=== PATIENT | male | born 1945 | race Two or more races ===

== ENCOUNTER → 2021-12-11 | Emergency (ER) | payer OTHER ==
[~2021-12-11] MED LIST: KETOROLAC TROMETH 30 MG/ML 1ML VIAL IV ONE; SODIUM CHLORIDE 0.9% 500 ML IVB ONE
[2021-12-11 10:45] LABS: Basophils # (auto) 0 10 ^3/uL (0-0.2); Basophils % (auto) 0.4 % (0.0-2.0); Eosinophils # (auto) 0 10 ^3/uL (0-0.8); Eosinophils % (auto) 0.6 % (0.0-7.0); Hematocrit 37.9 % (41.0-53.0); Hemoglobin 12.5 g/dL (13.5-17.5); Lymphocytes # (auto) 1.1 10 ^3/uL (0.4-5.4); Lymphocytes % (auto) 14.8 % (10.0-50.0); Mean Corpuscular Hemoglobin 29.7 pg (28.0-32.0); Mean Corpuscular Hgb Conc. 32.9 g/dL (32.0-36.0); Monocytes # (auto) 0.4 10 ^3/uL (0-1.3); Monocytes % (auto) 5.5 % (0.0-12.0); Neutrophils % (auto) 78.7 % (37.0-80.0); Red Blood Cells 4.21 10^6/uL (4.5-5.90); Red Cell Distribution Width 14.9 % (11.8-14.3); White Blood Cell 7.6 10^3/uL (4.4-10.8)
[2021-12-11 10:58] LABS: Albumin 3.6 g/dL (3.4-5.0); Calcium 8.3 mg/dL (8.5-10.1); Potassium 4.2 mmol/L (3.5-5.1)
[2021-12-11 11:02] LABS: BUN/Creatinine Ratio 14.4; Bilirubin, Total 0.6 mg/dL (0.2-1.0)
[2021-12-11 12:26] VITALS: BP 169/77
== END | disposition home or self-care (01) ==
LOC: EDBD 09:59 → ER 09:59
DX: R10.9 Unspecified abdominal pain (principal); I10 Essential (primary) hypertension; E11.9 Type 2 diabetes mellitus without complications; Z20.822 Contact with and (suspected) exposure to COVID-19
CPT/HCPCS: 36415; 74176; 80053; 82150; 83690; 85025; 87426; 93005; 96361; 96374; 99285; J1885; J7040

== ENCOUNTER 2023-02-18 16:21 | Observation (INO) | payer OTHER ==
[~2023-02-18] VITALS: Ht 182.9 cm; Wt 233.0 kg
[2023-02-18] MEDS ORDERED: PIPERACILLIN-TAZOB 3.375GM 100 ML IV ONE (17:00)
[2023-02-18] MEDS ORDERED: SODIUM CHLORIDE 0.9% 1,000 ML IV ONE ×2 (17:00→19:00)
[2023-02-18 17:28] LABS: Basophils # (auto) 0 10 ^3/uL (0-0.2); Basophils % (auto) 0.3 % (0.0-2.0); Eosinophils # (auto) 0 10 ^3/uL (0-0.8); Hematocrit 40.7 % (41.0-53.0); Hemoglobin 13.9 g/dL (13.5-17.5); Lymphocytes # (auto) 0.6 10 ^3/uL (0.4-5.4); Lymphocytes % (auto) 6.6 % (10.0-50.0); Mean Corpuscular Hemoglobin 28.8 pg (28.0-32.0); Mean Corpuscular Hgb Conc. 34.1 g/dL (32.0-36.0); Mean Corpuscular Volume 84.5 fL (80.0-100.0); Monocytes # (auto) 0.5 10 ^3/uL (0-1.3); Monocytes % (auto) 5.9 % (0.0-12.0); Neutrophils # (auto) 7.4 10 ^3/uL (1.6-8.6); Neutrophils % (auto) 87.2 % (37.0-80.0); Nucleated Red Blood Cells % 0.1 %; Red Blood Cells 4.81 10^6/uL (4.5-5.90); Red Cell Distribution Width 14.1 % (11.8-14.3); White Blood Cell 8.5 10^3/uL (4.4-10.8)
[2023-02-18 17:43] VITALS: PULSE 90; RESP 22; O2SAT 97
[2023-02-18 17:46] LABS: Alanine Aminotransferase 39 U/L (7-40); Albumin 4.5 g/dL (3.2-4.8); Alkaline Phosphatase 52 U/L (46-116); Anion Gap 7.7 (5-15); Aspartate Aminotransferase 39 U/L (13-40); BUN/Creatinine Ratio 14.2 (10.0-20.0); Blood Alcohol < 3.0 mg/dL (<10); Blood Urea Nitrogen 19 mg/dL (9-23); Calcium 8.7 mg/dL (8.5-10.1); Carbon Dioxide 24.3 mmol/L (20-30); Chloride 100 mmol/L (98-107); Glucose 205 mg/dL (74-106); Potassium 4.4 mmol/L (3.5-5.1); Sodium 132 mmol/L (136-145)
[2023-02-18 17:47] LABS: Bilirubin, Total 1.9 mg/dL (0.2-1.0); Total Protein 7.3 g/dL (5.7-8.2)
[2023-02-18 17:50] LABS: Salicylate < 3.0 mg/dL (2.8-20.0)
[2023-02-18 17:56] LABS: Magnesium 0.8 mg/dL (1.6-2.6)
[2023-02-18] MEDS ORDERED: ACETAMINOPHEN 325 MG TAB PO ONE (18:15)
[2023-02-18] MEDS ORDERED: MAGNESIUM SULFATE 1GM/100ML 100 ML IV ONE ×2 (18:15)
[2023-02-18] MEDS ORDERED: ACETAMINOPHEN 325 MG TAB PO PRN (18:45)
[2023-02-18] MEDS ORDERED: HYDROcodone-ACET 5/325MG TAB PO PRN (18:45)
[2023-02-18 19:18] LABS: COVID19 ANTIGEN SOFIA FIA NEGATIVE (NEGATIVE)
[2023-02-18 19:19] LABS: Rapid Influenza A Negative (Negative); Rapid Influenza B Negative (Negative)
[2023-02-18 19:33] VITALS: PULSE 72; RESP 28; O2SAT 96
[2023-02-18 19:45] LABS: Urine Bacteria NONE SEEN /hpf (None Seen); Urine Blood TRACE /uL (Negative); Urine Clarity Clear (Clear); Urine Color Yellow (Yellow); Urine Mucus FEW (None Seen); Urine Protein, UAD 1+ (Negative); Urine Specific Gravity 1.025 (1.001-1.035); Urine Urobilinogen Normal (Negative); Urine WBC 1 /hpf (0 - 3); Urine pH 5.5 (5.0-8.0)
[2023-02-18 19:54] LABS: Amphetamine Screen, Urine Neg (NEGATIVE); Barbiturate Scree,Urine Neg (NEGATIVE); Benzodiazephine Screen, Urine Neg (NEGATIVE); Cannabinoid Screen, Urine Neg (NEGATIVE); Cocaine Screen, Urine Neg (NEGATIVE); Opiate Scree,Urine Pos (NEGATIVE); Phencyclidine Screen, Urine Neg (NEGATIVE)
[2023-02-18] MEDS: MAGNESIUM SULFATE 1GM/100ML 100 ML IV SCH ×2 (21:07→22:25)
[2023-02-19] MEDS ORDERED: PANTOPRAZOLE 40 MG/10 ML VIAL INJ IV ONE (04:00)
[2023-02-19] MEDS ORDERED: ONDANSETRON HCL 4 MG/2 ML VIAL ONE (04:45)
[2023-02-19] MEDS ORDERED: ONDANSETRON HCL 4 MG/2 ML VIAL IV ONE (04:45)
[2023-02-19 06:03] LABS: Anion Gap 8.3 (5-15); Carbon Dioxide 22.7 mmol/L (20-30); Chloride 102 mmol/L (98-107); Potassium 3.6 mmol/L (3.5-5.1); Sodium 133 mmol/L (136-145)
[2023-02-19 06:04] LABS: Calcium 8.7 mg/dL (8.7-10.4)
[2023-02-19 06:09] LABS: BUN/Creatinine Ratio 12.6 (10.0-20.0); Blood Urea Nitrogen 12 mg/dL (9-23); Glucose 198 mg/dL (74-106)
[2023-02-19 06:10] LABS: Magnesium 1.5 mg/dL (1.6-2.6)
[2023-02-19 07:25] VITALS: RESP 18; O2SAT 96
[2023-02-19] MEDS ORDERED: METF-372 PO (08:57)
[2023-02-19] MEDS ORDERED: ASPI-543 PO (09:04)
[2023-02-19] MEDS ORDERED: HYDR-4072 PO (09:04)
[2023-02-19] MEDS ORDERED: LISI20TA56 PO (09:04)
[2023-02-19] MEDS ORDERED: ATOR-47 PO (09:04)
[2023-02-19] MEDS ORDERED: HYDR25TA87 PO (09:04)
[2023-02-19] MEDS ORDERED: MET50T PO (09:04)
[2023-02-19] MEDS ORDERED: POTA-228 PO (09:04)
[2023-02-19] MEDS ORDERED: ISO60SRT PO (09:04)
[2023-02-19 09:26] VITALS: BP 146/97; PULSE 87; RESP 20; TEMP 99.1; O2SAT 96
[2023-02-19 09:44] VITALS: BP 146/97; PULSE 87; RESP 20; TEMP 99.1; O2SAT 96
[2023-02-19] MEDS: MAGNESIUM SULFATE 1GM/100ML 100 ML IV SCH ×3 (09:53→12:15)
[2023-02-19 12:00] VITALS: BP 144/75; PULSE 84; RESP 20; TEMP 98.4; O2SAT 97
[2023-02-19 16:00] VITALS: BP 139/78; PULSE 76; RESP 18; TEMP 97.9; O2SAT 97
== END 2023-02-19 18:00 | disposition home or self-care (01) ==
LOC: ER 16:21 → EDBD 16:21 → OVERFLOW 18:51 → WEST WING 02-19 07:54
PROVIDERS: ADMIT Internal Medicine; ATTEND Internal Medicine
DX: G92.8 Other toxic encephalopathy (principal); Z20.822 Contact with and (suspected) exposure to COVID-19; R11.2 Nausea with vomiting, unspecified; E83.42 Hypomagnesemia; E11.9 Type 2 diabetes mellitus without complications; I10 Essential (primary) hypertension; E78.5 Hyperlipidemia, unspecified; G89.4 Chronic pain syndrome; I25.2 Old myocardial infarction; Z87.442 Personal history of urinary calculi; Z79.899 Other long term (current) drug therapy; Z91.199 Patient's noncompliance with other medical treatment and regimen due to unspecified reason
CPT/HCPCS: 36415; 70450; 71045; 74176; 80048; 80053; 80307; 80320; 80329; 81001; 82140; 83605; 83735; 83880; 84443; 84484; 85025; 87040; 87426; 87804; 93005; 93970; 96365; 96366; 96368; 96375; 97163; 99291; C9113; G0378; J2405; J2543; J3475; J7030

== ENCOUNTER 2023-02-21 15:15 | Inpatient (IN) | payer OTHER ==
[~2023-02-21] VITALS: Ht 182.9 cm; Wt 112.0 kg
[~2023-02-21 15:15] MED LIST changes: +ASPI-543 PO; +ATOR-47 PO; +HYDR-4072 PO; +HYDR25TA87 PO; +ISO60SRT PO; -KETOROLAC TROMETH 30 MG/ML 1ML VIAL IV ONE; +LISI20TA56 PO; +MET50T PO; +METF-372 PO; +POTA-228 PO; -SODIUM CHLORIDE 0.9% 500 ML IVB ONE
[2023-02-21 16:02] LABS: Basophils # (auto) 0 10 ^3/uL (0-0.2); Basophils % (auto) 0.1 % (0.0-2.0); Eosinophils # (auto) 0 10 ^3/uL (0-0.8); Hematocrit 39.3 % (41.0-53.0); Hemoglobin 13.2 g/dL (13.5-17.5); Lymphocytes % (auto) 6.3 % (10.0-50.0); Mean Corpuscular Hemoglobin 28.1 pg (28.0-32.0); Mean Corpuscular Hgb Conc. 33.6 g/dL (32.0-36.0); Mean Corpuscular Volume 83.6 fL (80.0-100.0); Monocytes # (auto) 1.2 10 ^3/uL (0-1.3); Monocytes % (auto) 7.8 % (0.0-12.0); Neutrophils # (auto) 13.2 10 ^3/uL (1.6-8.6); Neutrophils % (auto) 85.8 % (37.0-80.0); Red Cell Distribution Width 14.1 % (11.8-14.3); White Blood Cell 15.4 10^3/uL (4.4-10.8)
[2023-02-21 16:05] LABS: Alanine Aminotransferase 37 U/L (7-40); Alkaline Phosphatase 62 U/L (46-116); Calcium 8.7 mg/dL (8.7-10.4); Carbon Dioxide 22 mmol/L (20-30); Chloride 98 mmol/L (98-107); Glucose 265 mg/dL (74-106)
[2023-02-21 16:06] LABS: Albumin 4.2 g/dL (3.2-4.8); Anion Gap 10 (5-15); Aspartate Aminotransferase 27 U/L (13-40); BUN/Creatinine Ratio 15.1 (10.0-20.0); Bilirubin, Total 2.5 mg/dL (0.2-1.0); Blood Urea Nitrogen 22 mg/dL (9-23); Magnesium 1.6 mg/dL (1.6-2.6); Potassium 4.5 mmol/L (3.5-5.1); Sodium 130 mmol/L (136-145); Total Protein 6.7 g/dL (5.7-8.2)
[2023-02-21 16:19] LABS: INR 1.27 (0.9-1.15); Partial Thromboplastin Time 32.4 SEC (24.5-34.5); Prothrombin Time 13.1 sec (9.3-11.8)
[2023-02-21] MEDS ORDERED: SODIUM CHLORIDE 0.9% 1,000 ML IV ONE ×2 (21:15→23:45)
[2023-02-21] MEDS ORDERED: PIPERACILLIN-TAZOB 3.375GM 100 ML IV ONE (21:15)
[2023-02-21] MEDS ORDERED: HYDROmorphone HCL 2 MG/ML VL/or syr IM ONE (21:15)
[2023-02-21] MEDS ORDERED: ONDANSETRON ODT 4 MG TAB PO ONE (21:15)
[2023-02-21] MEDS ORDERED: VANCOMYCIN PER PHARMACY 0 MG IV SCH (21:30)
[2023-02-21 22:04] VITALS: PULSE 169; RESP 31; O2SAT 94
[2023-02-21] MEDS ORDERED: VANCOMYCIN 1GM/250ML 250 ML IV SCH (22:05)
[2023-02-21 22:06] LABS: Lactic Acid w/Reflex 2.2 mmol/L (0.4-2.0)
[2023-02-21] MEDS ORDERED: ADENOSINE 6 MG/2 ML INJ IV ONE ×3 (22:30)
[2023-02-21] MEDS ORDERED: dilTIAZem 25 MG/5 ML VIAL IV ONE (22:45)
[2023-02-21] MEDS ORDERED: dilTIAZem 125mg/125ml BAG KIT 125 ML IV ONE (22:45)
[2023-02-21] MEDS ORDERED: ONDANSETRON HCL 4 MG/2 ML VIAL IV PRN (23:45)
[2023-02-21] MEDS ORDERED: DEXTROSE (50%) 50ML SYRG IV PRN (23:45)
[2023-02-21] MEDS: SODIUM CHLORIDE 0.9% 1,000 ML IV SCH (23:45)
[2023-02-22] VITALS (80 sets, daily range): BP systolic 86–143; BP diastolic 55–85; PULSE 73–121; RESP 9–35; TEMP 98.5–98.9; O2SAT 91–100
[2023-02-22] MEDS: ACCU-CHEK COMFORT CURVE STRIP VI SCH ×5 (00:53→23:54)
[2023-02-22] MEDS: InsuLIN REG 1unit/0.01ml Soln (100units/ml) SC SCH ×5 (00:59→23:56)
[2023-02-22] MEDS: levoFLOXacin 500MG 100 ML IV SCH ×2 (03:02→21:33)
[2023-02-22] MEDS: HYDROcodone-ACET 5/325MG TAB PO PRN ×3 (04:45→23:29)
[2023-02-22] MEDS ORDERED: dilTIAZem 25 MG/5 ML VIAL IV ONE (05:38)
[2023-02-22] MEDS: metroNIDAZOLE 500MG/100ML 100 ML IV SCH ×3 (05:48→21:33)
[2023-02-22] MEDS: ACETAMINOPHEN 325 MG TAB PO PRN ×2 (06:36→08:15)
[2023-02-22 07:18] LABS: Basophils # (auto) 0 10 ^3/uL (0-0.2); Basophils % (auto) 0.1 % (0.0-2.0); Eosinophils # (auto) 0 10 ^3/uL (0-0.8); Hematocrit 36.4 % (41.0-53.0); Hemoglobin 12.2 g/dL (13.5-17.5); Lymphocytes # (auto) 0.7 10 ^3/uL (0.4-5.4); Lymphocytes % (auto) 5.5 % (10.0-50.0); Mean Corpuscular Hemoglobin 28.3 pg (28.0-32.0); Mean Corpuscular Hgb Conc. 33.5 g/dL (32.0-36.0); Mean Corpuscular Volume 84.6 fL (80.0-100.0); Monocytes # (auto) 0.8 10 ^3/uL (0-1.3); Monocytes % (auto) 6.6 % (0.0-12.0); Neutrophils # (auto) 11.2 10 ^3/uL (1.6-8.6); Neutrophils % (auto) 87.8 % (37.0-80.0); Red Blood Cells 4.31 10^6/uL (4.5-5.90); Red Cell Distribution Width 14.3 % (11.8-14.3); White Blood Cell 12.8 10^3/uL (4.4-10.8)
[2023-02-22 07:29] LABS: Chloride 101 mmol/L (98-107); Potassium 3.6 mmol/L (3.5-5.1); Sodium 131 mmol/L (136-145)
[2023-02-22 07:30] LABS: Anion Gap 9 (5-15); Calcium 8.1 mg/dL (8.7-10.4); Carbon Dioxide 21 mmol/L (20-30)
[2023-02-22 07:36] LABS: Glucose 236 mg/dL (74-106)
[2023-02-22 07:37] LABS: Magnesium 1.5 mg/dL (1.6-2.6)
[2023-02-22 08:08] LABS: BUN/Creatinine Ratio 16.2 (10.0-20.0); Blood Urea Nitrogen 17 mg/dL (9-23)
[2023-02-22] MEDS: SODIUM CHLORIDE 0.9% 1,000 ML IV SCH ×3 (09:45→21:05)
[2023-02-22] MEDS: PANTOPRAZOLE 40 MG/10 ML VIAL INJ IV SCH (10:21)
[2023-02-22] MEDS: METOPROLOL TARTRATE 50 MG TAB PO SCH ×2 (10:28→21:32)
[2023-02-22] MEDS: MAGNESIUM SULFATE 1GM/100ML 100 ML IV SCH ×4 (12:35→16:16)
[2023-02-23] VITALS (12 sets, daily range): BP systolic 118–137; BP diastolic 71–88; PULSE 64–115; RESP 17–31; TEMP 97.7–99.5; O2SAT 95–100
[2023-02-23] MEDS: metroNIDAZOLE 500MG/100ML 100 ML IV SCH ×3 (05:25→21:09)
[2023-02-23] MEDS: InsuLIN REG 1unit/0.01ml Soln (100units/ml) SC SCH ×4 (05:45→23:55)
[2023-02-23] MEDS: ACCU-CHEK COMFORT CURVE STRIP VI SCH ×4 (05:46→23:57)
[2023-02-23] MEDS: METOPROLOL TARTRATE 50 MG TAB PO SCH ×3 (08:17→21:47)
[2023-02-23] MEDS: HYDROcodone-ACET 5/325MG TAB PO PRN ×3 (08:17→23:45)
[2023-02-23] MEDS: PANTOPRAZOLE 40 MG/10 ML VIAL INJ IV SCH (08:18)
[2023-02-23] MEDS ORDERED: MORPHINE SULFATE INJ 2 MG/ml SYRG IV PRN (10:45)
[2023-02-23 11:59] LABS: Basophils # (auto) 0 10 ^3/uL (0-0.2); Basophils % (auto) 0.1 % (0.0-2.0); Eosinophils # (auto) 0 10 ^3/uL (0-0.8); Eosinophils % (auto) 0.2 % (0.0-7.0); Hematocrit 38.3 % (41.0-53.0); Hemoglobin 12.6 g/dL (13.5-17.5); Lymphocytes # (auto) 0.7 10 ^3/uL (0.4-5.4); Lymphocytes % (auto) 5.2 % (10.0-50.0); Mean Corpuscular Hemoglobin 28.2 pg (28.0-32.0); Mean Corpuscular Volume 85.6 fL (80.0-100.0); Monocytes # (auto) 0.9 10 ^3/uL (0-1.3); Monocytes % (auto) 7.1 % (0.0-12.0); Neutrophils # (auto) 11.5 10 ^3/uL (1.6-8.6); Neutrophils % (auto) 87.4 % (37.0-80.0); Red Blood Cells 4.47 10^6/uL (4.5-5.90); Red Cell Distribution Width 14.1 % (11.8-14.3); White Blood Cell 13.1 10^3/uL (4.4-10.8)
[2023-02-23 12:02] LABS: Chloride 102 mmol/L (98-107); Potassium 3.9 mmol/L (3.5-5.1); Sodium 131 mmol/L (136-145)
[2023-02-23 12:03] LABS: Anion Gap 8 (5-15); Calcium 8.6 mg/dL (8.7-10.4); Carbon Dioxide 21 mmol/L (20-30)
[2023-02-23 12:08] LABS: BUN/Creatinine Ratio 11.7 (10.0-20.0); Blood Urea Nitrogen 9 mg/dL (9-23); Glucose 174 mg/dL (74-106)
[2023-02-23 12:09] LABS: Magnesium 1.4 mg/dL (1.6-2.6)
[2023-02-23] MEDS ORDERED: LORazepam 2MG/ML-1ML VIAL IV PRN (12:45)
[2023-02-23] MEDS: METOPROLOL TARTRATE 1MG/1ML-5ML VIAL IV PRN ×2 (13:22→22:36)
[2023-02-23] MEDS: SODIUM CHLORIDE 0.9% 1,000 ML IV SCH (15:19)
[2023-02-23] MEDS: HYDROmorphone HCL 2 MG/ML VL/or syr IV PRN ×2 (17:03→21:32)
[2023-02-23] MEDS: levoFLOXacin 500MG 100 ML IV SCH (22:17)
[2023-02-24] VITALS (7 sets, daily range): BP systolic 130–153; BP diastolic 70–97; PULSE 67–119; RESP 18–20; TEMP 98–99.4; O2SAT 96–99
[2023-02-24] MEDS ORDERED: dilTIAZem 25 MG/5 ML VIAL IV ONE (01:00)
[2023-02-24] MEDS: HYDROmorphone HCL 2 MG/ML VL/or syr IV PRN ×2 (01:36→16:52)
[2023-02-24] MEDS: SODIUM CHLORIDE 0.9% 1,000 ML IV SCH ×3 (02:09→21:46)
[2023-02-24] MEDS: metroNIDAZOLE 500MG/100ML 100 ML IV SCH ×3 (05:58→21:33)
[2023-02-24] MEDS: HYDROcodone-ACET 5/325MG TAB PO PRN ×2 (05:58→14:27)
[2023-02-24] MEDS: InsuLIN REG 1unit/0.01ml Soln (100units/ml) SC SCH ×4 (06:04→23:09)
[2023-02-24] MEDS: ACCU-CHEK COMFORT CURVE STRIP VI SCH ×4 (06:06→23:06)
[2023-02-24] MEDS: MAGNESIUM SULFATE 1GM/100ML 100 ML IV SCH ×4 (08:46→16:01)
[2023-02-24] MEDS: PANTOPRAZOLE 40 MG/10 ML VIAL INJ IV SCH (08:47)
[2023-02-24] MEDS: METOPROLOL TARTRATE 50 MG TAB PO SCH ×3 (08:49→23:07)
[2023-02-24] MEDS: MAGNESIUM OXIDE 400 MG TAB PO SCH ×3 (08:50→23:05)
[2023-02-24] MEDS: ACETAMINOPHEN 325 MG TAB PO PRN (11:27)
[2023-02-24] MEDS ORDERED: MAGNESIUM SULFATE 1GM/100ML 100 ML IV ONE ×2 (14:20→15:57)
[2023-02-24] MEDS: levoFLOXacin 500MG 100 ML IV SCH ×2 (21:52→23:05)
[2023-02-25] VITALS (7 sets, daily range): BP systolic 132–145; BP diastolic 74–81; PULSE 67–156; RESP 18–22; TEMP 97.7–99.7; O2SAT 96–98
[2023-02-25] MEDS: HYDROcodone-ACET 5/325MG TAB PO PRN ×3 (02:34→19:50)
[2023-02-25] MEDS: HYDROmorphone HCL 2 MG/ML VL/or syr IV PRN ×4 (04:43→21:38)
[2023-02-25] MEDS: metroNIDAZOLE 500MG/100ML 100 ML IV SCH ×3 (06:23→21:37)
[2023-02-25] MEDS: ACCU-CHEK COMFORT CURVE STRIP VI SCH ×4 (06:23→23:27)
[2023-02-25] MEDS: SODIUM CHLORIDE 0.9% 1,000 ML IV SCH ×2 (06:24→17:45)
[2023-02-25] MEDS: InsuLIN REG 1unit/0.01ml Soln (100units/ml) SC SCH ×4 (06:25→23:27)
[2023-02-25] MEDS: MAGNESIUM OXIDE 400 MG TAB PO SCH ×2 (08:12→21:37)
[2023-02-25] MEDS: METOPROLOL TARTRATE 50 MG TAB PO SCH ×3 (08:13→23:38)
[2023-02-25] MEDS: PANTOPRAZOLE 40 MG/10 ML VIAL INJ IV SCH (08:13)
[2023-02-25 10:44] LABS: Basophils # (auto) 0.1 10 ^3/uL (0-0.2); Eosinophils # (auto) 0 10 ^3/uL (0-0.8); Eosinophils % (auto) 0.2 % (0.0-7.0); Hematocrit 37.3 % (41.0-53.0); Hemoglobin 12.3 g/dL (13.5-17.5); Lymphocytes # (auto) 0.9 10 ^3/uL (0.4-5.4); Lymphocytes % (auto) 6.8 % (10.0-50.0); Mean Corpuscular Volume 84.6 fL (80.0-100.0); Monocytes # (auto) 1.3 10 ^3/uL (0-1.3); Monocytes % (auto) 9.3 % (0.0-12.0); Neutrophils # (auto) 11.2 10 ^3/uL (1.6-8.6); Neutrophils % (auto) 82.7 % (37.0-80.0); Red Blood Cells 4.41 10^6/uL (4.5-5.90); Red Cell Distribution Width 14.5 % (11.8-14.3); White Blood Cell 13.5 10^3/uL (4.4-10.8)
[2023-02-25 11:04] LABS: Calcium 8.7 mg/dL (8.5-10.1); Carbon Dioxide 21 mmol/L (20-30)
[2023-02-25 11:10] LABS: BUN/Creatinine Ratio 11.1 (10.0-20.0); Blood Urea Nitrogen 8 mg/dL (9-23); Glucose 188 mg/dL (74-106)
[2023-02-25 11:28] LABS: Anion Gap 9 (5-15); Chloride 101 mmol/L (98-107); Potassium 3.5 mmol/L (3.5-5.1); Sodium 131 mmol/L (136-145)
[2023-02-25] MEDS: levoFLOXacin 500MG 100 ML IV SCH (21:37)
[2023-02-25] MEDS: METOPROLOL TARTRATE 1MG/1ML-5ML VIAL IV PRN (21:50)
[2023-02-26] MEDS: SODIUM CHLORIDE 0.9% 1,000 ML IV SCH ×2 (04:17→13:31)
[2023-02-26] MEDS: ACCU-CHEK COMFORT CURVE STRIP VI SCH ×3 (04:19→17:28)
[2023-02-26] MEDS: metroNIDAZOLE 500MG/100ML 100 ML IV SCH ×3 (04:19→21:37)
[2023-02-26] MEDS: InsuLIN REG 1unit/0.01ml Soln (100units/ml) SC SCH ×4 (04:28→23:14)
[2023-02-26 05:00] VITALS: BP 147/84; PULSE 107; RESP 20; TEMP 98.1; O2SAT 97
[2023-02-26] MEDS: HYDROmorphone HCL 2 MG/ML VL/or syr IV PRN ×4 (05:21→23:33)
[2023-02-26 06:15] LABS: Basophils # (auto) 0 10 ^3/uL (0-0.2); Basophils % (auto) 0.3 % (0.0-2.0); Eosinophils # (auto) 0 10 ^3/uL (0-0.8); Eosinophils % (auto) 0.1 % (0.0-7.0); Hematocrit 38.4 % (41.0-53.0); Hemoglobin 12.4 g/dL (13.5-17.5); Lymphocytes % (auto) 8.1 % (10.0-50.0); Mean Corpuscular Hgb Conc. 32.3 g/dL (32.0-36.0); Mean Corpuscular Volume 86.8 fL (80.0-100.0); Monocytes # (auto) 1.2 10 ^3/uL (0-1.3); Neutrophils # (auto) 10.6 10 ^3/uL (1.6-8.6); Neutrophils % (auto) 82.5 % (37.0-80.0); Nucleated Red Blood Cells % 0.1 %; Red Blood Cells 4.42 10^6/uL (4.5-5.90); Red Cell Distribution Width 14.8 % (11.8-14.3); White Blood Cell 12.9 10^3/uL (4.4-10.8)
[2023-02-26 06:35] LABS: Alanine Aminotransferase 36 U/L (7-40); Alkaline Phosphatase 98 U/L (46-116); Anion Gap 9 (5-15); BUN/Creatinine Ratio 8.7 (10.0-20.0); Blood Urea Nitrogen 6 mg/dL (9-23); Calcium 8.7 mg/dL (8.7-10.4); Carbon Dioxide 22 mmol/L (20-30); Chloride 101 mmol/L (98-107); Glucose 170 mg/dL (74-106); Potassium 3.8 mmol/L (3.5-5.1); Sodium 132 mmol/L (136-145)
[2023-02-26 06:36] LABS: Albumin 3.8 g/dL (3.2-4.8); Aspartate Aminotransferase 38 U/L (13-40)
[2023-02-26 06:37] LABS: Bilirubin, Total 1.1 mg/dL (0.2-1.0); Total Protein 6.1 g/dL (5.7-8.2)
[2023-02-26 09:29] VITALS: BP 142/88; PULSE 66; RESP 17; TEMP 98.6; O2SAT 97
[2023-02-26] MEDS: PANTOPRAZOLE 40 MG/10 ML VIAL INJ IV SCH (09:44)
[2023-02-26] MEDS: MAGNESIUM OXIDE 400 MG TAB PO SCH ×2 (09:44→22:44)
[2023-02-26] MEDS: METOPROLOL TARTRATE 50 MG TAB PO SCH ×2 (09:45→22:00)
[2023-02-26 12:32] VITALS: BP 134/85; PULSE 85; RESP 17; TEMP 98; O2SAT 97
[2023-02-26] MEDS: HYDROcodone-ACET 5/325MG TAB PO PRN ×2 (14:32→20:09)
[2023-02-26 17:11] VITALS: BP 139/78; PULSE 72; RESP 17; TEMP 98.3; O2SAT 96
[2023-02-26] MEDS ORDERED: BUPIVACAINE 0.25% INJ 50ML VIAL ONE (17:52)
[2023-02-26] MEDS ORDERED: LIDOCAINE W/ EPINEPHRINE 1% 20ML VIAL ONE (17:52)
[2023-02-26 20:00] VITALS: PULSE 147; PULSE 62; RESP 18
[2023-02-26] MEDS: METOPROLOL TARTRATE 1MG/1ML-5ML VIAL IV PRN (20:10)
[2023-02-26] MEDS: levoFLOXacin 500MG 100 ML IV SCH (21:38)
[2023-02-26 22:00] VITALS: BP 133/77; PULSE 62; RESP 18; TEMP 98; O2SAT 95
[2023-02-27] VITALS (7 sets, daily range): BP systolic 131–146; BP diastolic 82–99; PULSE 54–132; RESP 17–20; TEMP 97.9–98.9; O2SAT 96–99
[2023-02-27] MEDS: SODIUM CHLORIDE 0.9% 1,000 ML IV SCH ×3 (00:57→19:20)
[2023-02-27] MEDS: ACCU-CHEK COMFORT CURVE STRIP VI SCH ×4 (00:58→17:54)
[2023-02-27] MEDS: HYDROcodone-ACET 5/325MG TAB PO PRN ×2 (02:49→18:49)
[2023-02-27] MEDS: HYDROmorphone HCL 2 MG/ML VL/or syr IV PRN ×4 (05:23→22:39)
[2023-02-27] MEDS: metroNIDAZOLE 500MG/100ML 100 ML IV SCH ×3 (05:24→23:14)
[2023-02-27] MEDS: InsuLIN REG 1unit/0.01ml Soln (100units/ml) SC SCH ×3 (06:00→17:54)
[2023-02-27 06:35] LABS: Basophils # (auto) 0 10 ^3/uL (0-0.2); Basophils % (auto) 0.2 % (0.0-2.0); Eosinophils # (auto) 0 10 ^3/uL (0-0.8); Eosinophils % (auto) 0.2 % (0.0-7.0); Hematocrit 36.9 % (41.0-53.0); Hemoglobin 12.1 g/dL (13.5-17.5); Lymphocytes # (auto) 1.4 10 ^3/uL (0.4-5.4); Lymphocytes % (auto) 11.2 % (10.0-50.0); Mean Corpuscular Hemoglobin 27.9 pg (28.0-32.0); Mean Corpuscular Hgb Conc. 32.9 g/dL (32.0-36.0); Mean Corpuscular Volume 84.8 fL (80.0-100.0); Monocytes # (auto) 0.9 10 ^3/uL (0-1.3); Monocytes % (auto) 7.3 % (0.0-12.0); Neutrophils # (auto) 9.7 10 ^3/uL (1.6-8.6); Neutrophils % (auto) 81.1 % (37.0-80.0); Nucleated Red Blood Cells % 0.1 %; Red Blood Cells 4.35 10^6/uL (4.5-5.90); Red Cell Distribution Width 14.8 % (11.8-14.3)
[2023-02-27 06:39] LABS: Chloride 101 mmol/L (98-107); Potassium 3.2 mmol/L (3.5-5.1); Sodium 135 mmol/L (136-145)
[2023-02-27 06:40] LABS: Anion Gap 7 (5-15); Carbon Dioxide 27 mmol/L (20-30)
[2023-02-27 06:41] LABS: Calcium 8.8 mg/dL (8.7-10.4)
[2023-02-27 06:45] LABS: Glucose 173 mg/dL (74-106)
[2023-02-27 06:46] LABS: BUN/Creatinine Ratio 10.5 (10.0-20.0); Blood Urea Nitrogen 8 mg/dL (9-23)
[2023-02-27] MEDS: METOPROLOL TARTRATE 50 MG TAB PO SCH ×2 (09:00→22:33)
[2023-02-27] MEDS: METOPROLOL TARTRATE 1MG/1ML-5ML VIAL IV PRN (09:01)
[2023-02-27] MEDS: MAGNESIUM OXIDE 400 MG TAB PO SCH ×2 (10:00→22:34)
[2023-02-27] MEDS: PANTOPRAZOLE 40 MG/10 ML VIAL INJ IV SCH (11:19)
[2023-02-27] MEDS: POTASSIUM CHL 20MEQ/100ML 100 ML IV SCH ×2 (11:22→14:41)
[2023-02-27] MEDS: MAGNESIUM SULFATE 1GM/100ML 100 ML IV SCH ×5 (11:22→21:44)
[2023-02-27] MEDS ORDERED: AMIODARONE BOLUS KIT 100 ML IV ONE (13:00)
[2023-02-27] MEDS ORDERED: AMIODARONE 450mg/250ml AE 250 ML IV SCH (13:00)
[2023-02-27] MEDS ORDERED: MAGNESIUM SULFATE 1GM/100ML 100 ML IV SCH (13:00)
[2023-02-27] MEDS: AMIODARONE 450mg/250ml AE 250 ML IV SCH (19:06)
[2023-02-28] VITALS (9 sets, daily range): BP systolic 138–169; BP diastolic 79–92; PULSE 70–125; RESP 18–19; TEMP 98–98.3; O2SAT 95–100
[2023-02-28] MEDS: levoFLOXacin 500MG 100 ML IV SCH ×2 (00:41→23:20)
[2023-02-28] MEDS: ACCU-CHEK COMFORT CURVE STRIP VI SCH ×3 (00:41→12:05)
[2023-02-28] MEDS: InsuLIN REG 1unit/0.01ml Soln (100units/ml) SC SCH ×4 (00:48→17:36)
[2023-02-28] MEDS: HYDROmorphone HCL 2 MG/ML VL/or syr IV PRN ×2 (02:49→18:27)
[2023-02-28] MEDS: SODIUM CHLORIDE 0.9% 1,000 ML IV SCH ×2 (05:45→16:30)
[2023-02-28 05:49] LABS: Chloride 100 mmol/L (98-107); Potassium 3.5 mmol/L (3.5-5.1); Sodium 132 mmol/L (136-145)
[2023-02-28 05:50] LABS: Anion Gap 6 (5-15); Calcium 8.4 mg/dL (8.7-10.4); Carbon Dioxide 26 mmol/L (20-30)
[2023-02-28 05:55] LABS: BUN/Creatinine Ratio 8.6 (10.0-20.0); Blood Urea Nitrogen 6 mg/dL (9-23); Glucose 178 mg/dL (74-106)
[2023-02-28 06:00] LABS: Basophils # (auto) 0 10 ^3/uL (0-0.2); Basophils % (auto) 0.3 % (0.0-2.0); Eosinophils # (auto) 0 10 ^3/uL (0-0.8); Eosinophils % (auto) 0.4 % (0.0-7.0); Hematocrit 36.1 % (41.0-53.0); Lymphocytes # (auto) 1.1 10 ^3/uL (0.4-5.4); Lymphocytes % (auto) 9.7 % (10.0-50.0); Mean Corpuscular Hemoglobin 28.2 pg (28.0-32.0); Mean Corpuscular Hgb Conc. 33.2 g/dL (32.0-36.0); Mean Corpuscular Volume 84.8 fL (80.0-100.0); Monocytes # (auto) 0.8 10 ^3/uL (0-1.3); Monocytes % (auto) 6.5 % (0.0-12.0); Neutrophils # (auto) 9.7 10 ^3/uL (1.6-8.6); Neutrophils % (auto) 83.1 % (37.0-80.0); Red Blood Cells 4.25 10^6/uL (4.5-5.90); Red Cell Distribution Width 14.4 % (11.8-14.3); White Blood Cell 11.7 10^3/uL (4.4-10.8)
[2023-02-28] MEDS: metroNIDAZOLE 500MG/100ML 100 ML IV SCH ×3 (06:18→21:55)
[2023-02-28] MEDS ORDERED: POTASSIUM CHL 20MEQ/100ML 100 ML IV SCH ×2 (08:45→20:30)
[2023-02-28] MEDS ORDERED: fentaNYL CITRATE 100 MCG/2 ML VL ONE ×2 (09:17→13:39)
[2023-02-28] MEDS ORDERED: HYDROmorphone HCL 2 MG/ML VL/or syr ONE (09:17)
[2023-02-28] MEDS ORDERED: MIDAZOLAM HCL 2MG/2ML 2ml VIAL (1mg/ml) ONE (09:17)
[2023-02-28] MEDS ORDERED: ETOMIDATE (2MG/ML) 20ML VIAL IV ONE (09:18)
[2023-02-28] MEDS ORDERED: PROPOFOL 10 MG/ML 20 ML IV ONE (09:18)
[2023-02-28] MEDS ORDERED: ROCURONIUM 10MG/ML 10ML VIAL IV ONE (09:18)
[2023-02-28] MEDS ORDERED: PHENYLEPHRINE HCL 10 MG/ML VL ONE (09:18)
[2023-02-28] MEDS ORDERED: ePHEDrine SULFATE 50 MG/ML AMP ONE (09:18)
[2023-02-28] MEDS ORDERED: ONDANSETRON HCL 4 MG/2 ML VIAL ONE (09:18)
[2023-02-28] MEDS ORDERED: LIDOCAINE 2% (LOCAL ANESTH.) PF 5ml SDV ONE (09:18)
[2023-02-28] MEDS ORDERED: METOPROLOL TARTRATE 1MG/1ML-5ML VIAL IV ONE (09:24)
[2023-02-28] MEDS ORDERED: SUGAMMADEX 200mg/2ml Vial (100MG/ML) IV ONE (09:29)
[2023-02-28] MEDS ORDERED: BUPIVACAINE 0.25% INJ 50ML VIAL ONE ×2 (09:56→11:42)
[2023-02-28] MEDS ORDERED: LIDOCAINE W/ EPINEPHRINE 1% 20ML VIAL ONE (09:56)
[2023-02-28] MEDS: PANTOPRAZOLE 40 MG/10 ML VIAL INJ IV SCH (09:57)
[2023-02-28] MEDS: MAGNESIUM OXIDE 400 MG TAB PO SCH ×2 (10:00→22:00)
[2023-02-28] MEDS: METOPROLOL TARTRATE 50 MG TAB PO SCH ×2 (10:00→22:32)
[2023-02-28] MEDS: AMIODARONE 450mg/250ml AE 250 ML IV SCH (10:04)
[2023-02-28] MEDS ORDERED: ceFAZolin 1GM/50ML 100 ML IV ONE (11:54)
[2023-02-28] MEDS ORDERED: LIDOCAINE 1% HCL (LOCAL ANESTH.) INJ 20ML MDV ONE (12:08)
[2023-02-28] MEDS ORDERED: DexAMETHasone SOD PHOS 10MG/1ML VIAL INJ ONE (13:16)
[2023-02-28] MEDS ORDERED: KETOROLAC TROMETH 30 MG/ML 1ML VIAL ONE (13:16)
[2023-02-28] MEDS ORDERED: ONDANSETRON HCL 4 MG/2 ML VIAL IV PRN (14:45)
[2023-02-28] MEDS ORDERED: ACCU-CHEK COMFORT CURVE STRIP VI ONE (14:45)
[2023-02-28] MEDS ORDERED: HYDROmorphone HCL 2 MG/ML VL/or syr IV PRN (14:45)
[2023-03-01] MEDS: InsuLIN REG 1unit/0.01ml Soln (100units/ml) SC SCH ×5 (00:14→23:34)
[2023-03-01] MEDS: SODIUM CHLORIDE 0.9% 1,000 ML IV SCH ×3 (01:45→18:11)
[2023-03-01] MEDS: MAGNESIUM SULFATE 1GM/100ML 100 ML IV SCH ×3 (02:00→04:26)
[2023-03-01 05:00] VITALS: BP 156/81; PULSE 58; RESP 19; TEMP 98; O2SAT 98
[2023-03-01] MEDS: metroNIDAZOLE 500MG/100ML 100 ML IV SCH ×3 (05:59→21:17)
[2023-03-01] MEDS: HYDROmorphone HCL 2 MG/ML VL/or syr IV PRN ×3 (06:07→20:05)
[2023-03-01 06:41] LABS: Basophils # (auto) 0 10 ^3/uL (0-0.2); Eosinophils # (auto) 0 10 ^3/uL (0-0.8); Hematocrit 33.5 % (41.0-53.0); Lymphocytes # (auto) 0.8 10 ^3/uL (0.4-5.4); Lymphocytes % (auto) 6.1 % (10.0-50.0); Mean Corpuscular Hemoglobin 27.8 pg (28.0-32.0); Mean Corpuscular Hgb Conc. 32.8 g/dL (32.0-36.0); Mean Corpuscular Volume 84.9 fL (80.0-100.0); Monocytes # (auto) 0.5 10 ^3/uL (0-1.3); Monocytes % (auto) 4.2 % (0.0-12.0); Neutrophils # (auto) 11.2 10 ^3/uL (1.6-8.6); Neutrophils % (auto) 89.7 % (37.0-80.0); Red Blood Cells 3.95 10^6/uL (4.5-5.90); Red Cell Distribution Width 14.7 % (11.8-14.3); White Blood Cell 12.4 10^3/uL (4.4-10.8)
[2023-03-01 06:48] LABS: Anion Gap 5 (5-15); Carbon Dioxide 26 mmol/L (20-30); Chloride 103 mmol/L (98-107); Potassium 4.6 mmol/L (3.5-5.1); Sodium 134 mmol/L (136-145)
[2023-03-01 06:49] LABS: Calcium 8.5 mg/dL (8.7-10.4)
[2023-03-01 06:54] LABS: BUN/Creatinine Ratio 10.3 (10.0-20.0); Blood Urea Nitrogen 9 mg/dL (9-23); Glucose 265 mg/dL (74-106)
[2023-03-01 06:55] LABS: Magnesium 2.2 mg/dL (1.6-2.6)
[2023-03-01 08:00] VITALS: PULSE 68; RESP 18; O2SAT 97
[2023-03-01] MEDS: METOPROLOL TARTRATE 50 MG TAB PO SCH ×2 (08:51→21:17)
[2023-03-01] MEDS: MAGNESIUM OXIDE 400 MG TAB PO SCH ×2 (08:51→21:16)
[2023-03-01] MEDS: PANTOPRAZOLE 40 MG/10 ML VIAL INJ IV SCH (08:51)
[2023-03-01 09:00] VITALS: BP 158/82; PULSE 70; RESP 16; TEMP 97.8; O2SAT 98
[2023-03-01] MEDS: HYDROcodone-ACET 5/325MG TAB PO PRN ×2 (12:14→18:09)
[2023-03-01 17:00] VITALS: BP 140/81; PULSE 66; RESP 20; TEMP 98; O2SAT 99
[2023-03-01 20:00] VITALS: PULSE 67; PULSE 70; RESP 19; O2SAT 96
[2023-03-01 22:00] VITALS: BP 149/79; PULSE 66; RESP 17; TEMP 97.5; O2SAT 96
[2023-03-01] MEDS: levoFLOXacin 500MG 100 ML IV SCH (22:45)
[2023-03-01] MEDS ORDERED: TEMAZEPAM 15 MG CAP PO ONE (23:15)
[2023-03-02] MEDS: HYDROmorphone HCL 2 MG/ML VL/or syr IV PRN ×2 (01:21→05:24)
[2023-03-02 05:00] VITALS: BP 161/83; PULSE 68; RESP 18; TEMP 97.6; O2SAT 95
[2023-03-02] MEDS: metroNIDAZOLE 500MG/100ML 100 ML IV SCH ×2 (05:24→13:57)
[2023-03-02] MEDS: InsuLIN REG 1unit/0.01ml Soln (100units/ml) SC SCH ×2 (05:38→12:30)
[2023-03-02 06:23] LABS: Basophils # (auto) 0 10 ^3/uL (0-0.2); Basophils % (auto) 0.2 % (0.0-2.0); Eosinophils # (auto) 0 10 ^3/uL (0-0.8); Eosinophils % (auto) 0.3 % (0.0-7.0); Hematocrit 37.3 % (41.0-53.0); Hemoglobin 11.8 g/dL (13.5-17.5); Lymphocytes # (auto) 1.3 10 ^3/uL (0.4-5.4); Lymphocytes % (auto) 11.9 % (10.0-50.0); Mean Corpuscular Hemoglobin 28.4 pg (28.0-32.0); Mean Corpuscular Hgb Conc. 31.6 g/dL (32.0-36.0); Mean Corpuscular Volume 89.8 fL (80.0-100.0); Monocytes # (auto) 0.7 10 ^3/uL (0-1.3); Monocytes % (auto) 6.6 % (0.0-12.0); Neutrophils # (auto) 8.8 10 ^3/uL (1.6-8.6); Red Blood Cells 4.16 10^6/uL (4.5-5.90); Red Cell Distribution Width 15.2 % (11.8-14.3); White Blood Cell 10.8 10^3/uL (4.4-10.8)
[2023-03-02 06:39] LABS: Chloride 107 mmol/L (98-107); Potassium 4.2 mmol/L (3.5-5.1); Sodium 135 mmol/L (136-145)
[2023-03-02 06:40] LABS: Anion Gap 4 (5-15); Calcium 8.2 mg/dL (8.7-10.4); Carbon Dioxide 24 mmol/L (20-30)
[2023-03-02 06:45] LABS: BUN/Creatinine Ratio 6.8 (10.0-20.0); Blood Urea Nitrogen < 5 mg/dL (9-23); Glucose 133 mg/dL (74-106)
[2023-03-02 08:00] VITALS: PULSE 68; PULSE 71; RESP 22; O2SAT 98
[2023-03-02 09:06] VITALS: BP 174/65; PULSE 71; RESP 22; TEMP 97.4; O2SAT 98
[2023-03-02] MEDS: MAGNESIUM OXIDE 400 MG TAB PO SCH (09:51)
[2023-03-02] MEDS: HYDROcodone-ACET 5/325MG TAB PO PRN (09:51)
[2023-03-02] MEDS: METOPROLOL TARTRATE 50 MG TAB PO SCH (09:52)
[2023-03-02] MEDS: PANTOPRAZOLE 40 MG/10 ML VIAL INJ IV SCH (09:53)
[2023-03-02] MEDS: SODIUM CHLORIDE 0.9% 1,000 ML IV SCH (09:58)
[2023-03-02] MEDS ORDERED: MET50T PO (11:32)
[2023-03-02] MEDS ORDERED: HYDR-4902 PO (11:32)
[2023-03-02 13:00] VITALS: BP 168/85; PULSE 73; RESP 16; TEMP 97.8; O2SAT 95
[2023-03-02 15:46] VITALS: BP 117/66; PULSE 100; RESP 22; TEMP 36.6; O2SAT 99
[2023-03-02] MEDS ORDERED: APIX5TAB PO (15:54)
== END 2023-03-02 17:00 | disposition home health service (06) | DRG 417 ==
LOC: ER 15:15 → TELE 23:39 → TELE-WESTW 02-22 02:04 → ICU WEST 02-22 04:24 → TELE-WESTW 02-23 00:55
PROVIDERS: ADMIT Internal Medicine; ATTEND Internal Medicine
PROC: 0DNU4ZZ Release Omentum, Percutaneous Endoscopic Approach (ICD-10-PCS; 2023-02-28)
PROC: 0FT44ZZ Resection of Gallbladder, Percutaneous Endoscopic Approach (ICD-10-PCS; principal; 2023-02-28 12:24)
DX: K81.0 Acute cholecystitis (principal); K65.1 Peritoneal abscess; E87.1 Hypo-osmolality and hyponatremia; I47.1 Supraventricular tachycardia; N17.9 Acute kidney failure, unspecified; E66.9 Obesity, unspecified; I10 Essential (primary) hypertension; I48.0 Paroxysmal atrial fibrillation; E11.65 Type 2 diabetes mellitus with hyperglycemia; D72.829 Elevated white blood cell count, unspecified; G89.4 Chronic pain syndrome; E78.5 Hyperlipidemia, unspecified; J44.9 Chronic obstructive pulmonary disease, unspecified; K21.9 Gastro-esophageal reflux disease without esophagitis; I25.10 Atherosclerotic heart disease of native coronary artery without angina pectoris; K82.A1 Gangrene of gallbladder in cholecystitis; K66.0 Peritoneal adhesions (postprocedural) (postinfection); Z87.442 Personal history of urinary calculi; Z83.3 Family history of diabetes mellitus; I25.2 Old myocardial infarction; Z79.899 Other long term (current) drug therapy; Z68.33 Body mass index [BMI] 33.0-33.9, adult; Z85.46 Personal history of malignant neoplasm of prostate
CPT/HCPCS: 36415; 71045; 74176; 76705; 78226; 80048; 80053; 80202; 82962; 83605; 83690; 83735; 83880; 84484; 85025; 85610; 85730; 86850; 86900; 86901; 87040; 87081; 93005; 93306; 97110; 97116; 97163; 97530; C9113; G0378; J0153; J0690; J1100; J1815; J1885; J1956; J2001; J2250; J2405; J2543; J2704; J3480; J3490; Q0162

== ENCOUNTER → 2023-04-29 | Outpatient (CLI) | payer OTHER ==
[~2023-04-29] MED LIST changes: +APIX5TAB PO; -HYDR-4072 PO; +HYDR-4902 PO; -HYDR25TA87 PO; -ISO60SRT PO; -LISI20TA56 PO; -POTA-228 PO
[2023-04-29 11:24] LABS: Cholesterol 90 mg/dL (< 200); Triglycerides 106 mg/dL (< 150)
[2023-04-29 11:25] LABS: LDL Cholesterol 37 mg/dL (< 100)
[2023-04-29 11:26] LABS: HDL Cholesterol 37 mg/dL (40-59)
== END | disposition home or self-care (01) ==
LOC: LAB 10:07
PROVIDERS: ATTEND Internal Medicine
DX: E11.9 Type 2 diabetes mellitus without complications (principal); N40.0 Benign prostatic hyperplasia without lower urinary tract symptoms
CPT/HCPCS: 36415; 80061; 84153

== ENCOUNTER → 2023-08-05 | Outpatient (CLI) | payer OTHER ==
[2023-08-05 10:16] LABS: Basophils # (auto) 0 10 ^3/uL (0-0.2); Basophils % (auto) 0.5 % (0.0-2.0); Eosinophils # (auto) 0.3 10 ^3/uL (0-0.8); Eosinophils % (auto) 3.2 % (0.0-7.0); Hematocrit 42.1 % (41.0-53.0); Hemoglobin 13.9 g/dL (13.5-17.5); Lymphocytes # (auto) 2.2 10 ^3/uL (0.4-5.4); Lymphocytes % (auto) 26.5 % (10.0-50.0); Mean Corpuscular Hemoglobin 28.4 pg (28.0-32.0); Mean Corpuscular Hgb Conc. 33.1 g/dL (32.0-36.0); Mean Corpuscular Volume 85.9 fL (80.0-100.0); Monocytes # (auto) 0.7 10 ^3/uL (0-1.3); Monocytes % (auto) 8.7 % (0.0-12.0); Neutrophils % (auto) 61.1 % (37.0-80.0); Red Cell Distribution Width 14.5 % (11.8-14.3); White Blood Cell 8.2 10^3/uL (4.4-10.8)
[2023-08-05 10:43] LABS: Alanine Aminotransferase 25 U/L (7-40); Albumin 4.5 g/dL (3.2-4.8); Alkaline Phosphatase 39 U/L (46-116); Anion Gap 8 (5-15); Aspartate Aminotransferase 25 U/L (13-40); BUN/Creatinine Ratio 8.7 (10.0-20.0); Bilirubin, Total 1.2 mg/dL (0.2-1.0); Blood Urea Nitrogen 9 mg/dL (9-23); Calcium 9.4 mg/dL (8.5-10.1); Carbon Dioxide 23 mmol/L (20-30); Chloride 108 mmol/L (98-107); Glucose 130 mg/dL (74-106); Potassium 3.8 mmol/L (3.5-5.1); Sodium 139 mmol/L (136-145); Total Protein 7.1 g/dL (5.7-8.2)
== END | disposition home or self-care (01) ==
LOC: LAB 10:03
PROVIDERS: ATTEND Internal Medicine
DX: I10 Essential (primary) hypertension (principal); E11.9 Type 2 diabetes mellitus without complications
CPT/HCPCS: 36415; 80053; 82607; 83036; 85025

== ENCOUNTER 2023-12-15 13:04 | Inpatient (IN) | payer OTHER ==
[~2023-12-15] VITALS: Ht 182.9 cm; Wt 105.2 kg
[2023-12-15] MEDS: GABAPENTIN 100 MG CAP PO ONE (14:11)
[2023-12-15 14:44] LABS: Basophils # (auto) 0.1 10 ^3/uL (0-0.2); Basophils % (auto) 0.8 % (0.0-2.0); Eosinophils # (auto) 0.2 10 ^3/uL (0-0.8); Eosinophils % (auto) 2.7 % (0.0-7.0); Hematocrit 42.6 % (41.0-53.0); Hemoglobin 14.3 g/dL (13.5-17.5); Lymphocytes # (auto) 1.6 10 ^3/uL (0.4-5.4); Lymphocytes % (auto) 22.3 % (10.0-50.0); Mean Corpuscular Hgb Conc. 33.5 g/dL (32.0-36.0); Mean Corpuscular Volume 86.6 fL (80.0-100.0); Monocytes # (auto) 0.8 10 ^3/uL (0-1.3); Monocytes % (auto) 10.8 % (0.0-12.0); Neutrophils # (auto) 4.6 10 ^3/uL (1.6-8.6); Neutrophils % (auto) 63.4 % (37.0-80.0); Nucleated Red Blood Cells % 0.3 %; Red Blood Cells 4.92 10^6/uL (4.5-5.90); White Blood Cell 7.3 10^3/uL (4.4-10.8)
[2023-12-15 15:32] LABS: Alanine Aminotransferase 24 U/L (7-40); Albumin 4.5 g/dL (3.2-4.8); Alkaline Phosphatase 38 U/L (46-116); Anion Gap 11 (5-15); Aspartate Aminotransferase 18 U/L (13-40); BUN/Creatinine Ratio 17.2 (10.0-20.0); Blood Urea Nitrogen 21 mg/dL (9-23); Calcium 9.5 mg/dL (8.7-10.4); Carbon Dioxide 18 mmol/L (20-30); Chloride 113 mmol/L (98-107); Glucose 143 mg/dL (74-106); Potassium 4.5 mmol/L (3.5-5.1); Sodium 142 mmol/L (136-145)
[2023-12-15 15:33] LABS: Bilirubin, Total 1.2 mg/dL (0.2-1.0); Total Protein 6.7 g/dL (5.7-8.2)
[2023-12-15] MEDS ORDERED: ONDANSETRON HCL 4 MG/2 ML VIAL IV PRN (17:30)
[2023-12-15] MEDS ORDERED: DOCUSATE SOD 100 MG CAP PO PRN (17:30)
[2023-12-15] MEDS ORDERED: hydrALAZINE HCL 20 MG/ML VL IV PRN (17:30)
[2023-12-15] MEDS ORDERED: DEXTROSE (50%) 50ML SYRG IV PRN (17:30)
[2023-12-15] MEDS ORDERED: MORPHINE SULFATE INJ 2 MG/ml SYRG IV PRN (18:00)
[2023-12-15] MEDS ORDERED: NITROGLYCERIN 0.4 MG SL TAB SL PRN (18:00)
[2023-12-15] MEDS: HYDROcodone-ACET 5/325MG TAB PO PRN (20:55)
[2023-12-15 20:56] VITALS: PULSE 61; RESP 16; O2SAT 95
[2023-12-15] MEDS ORDERED: APIXABAN 5 MG TAB PO SCH (22:00)
[2023-12-15] MEDS: ATORVASTATIN 20 MG TAB PO SCH (23:16)
[2023-12-15] MEDS: METOPROLOL TARTRATE 50 MG TAB PO SCH (23:21)
[2023-12-15] MEDS: ACCU-CHEK COMFORT CURVE STRIP VI SCH (23:24)
[2023-12-15] MEDS: SODIUM CHLOR 0.9% PF (SALINE LOCK) 10ML VIAL/SYR IV SCH (23:24)
[2023-12-15] MEDS: InsuLIN REG 1unit/0.01ml Soln (100units/ml) SC SCH (23:27)
[2023-12-15 23:42] VITALS: BP 159/70; PULSE 60; RESP 17; O2SAT 98
[2023-12-16] MEDS: ACETAMINOPHEN 325 MG TAB PO PRN
[2023-12-16 01:00] VITALS: BP 117/52; PULSE 53; RESP 16; TEMP 98.1; O2SAT 97
[2023-12-16 05:00] VITALS: BP 136/67; PULSE 55; RESP 18; TEMP 98.1; O2SAT 99
[2023-12-16] MEDS: InsuLIN REG 1unit/0.01ml Soln (100units/ml) SC SCH (06:11)
[2023-12-16 07:18] LABS: Basophils # (auto) 0 10 ^3/uL (0-0.2); Basophils % (auto) 0.4 % (0.0-2.0); Eosinophils # (auto) 0.2 10 ^3/uL (0-0.8); Eosinophils % (auto) 3.2 % (0.0-7.0); Hematocrit 39.2 % (41.0-53.0); Hemoglobin 13.3 g/dL (13.5-17.5); Lymphocytes % (auto) 30.5 % (10.0-50.0); Mean Corpuscular Hgb Conc. 33.9 g/dL (32.0-36.0); Mean Corpuscular Volume 85.5 fL (80.0-100.0); Monocytes # (auto) 0.7 10 ^3/uL (0-1.3); Monocytes % (auto) 10.2 % (0.0-12.0); Neutrophils # (auto) 3.6 10 ^3/uL (1.6-8.6); Neutrophils % (auto) 55.7 % (37.0-80.0); Red Blood Cells 4.58 10^6/uL (4.5-5.90); Red Cell Distribution Width 14.6 % (11.8-14.3); White Blood Cell 6.5 10^3/uL (4.4-10.8)
[2023-12-16 07:21] LABS: Alanine Aminotransferase 19 U/L (7-40); Alkaline Phosphatase 34 U/L (46-116); Anion Gap 12 (5-15); BUN/Creatinine Ratio 16.8 (10.0-20.0); Blood Urea Nitrogen 16 mg/dL (9-23); Calcium 9.1 mg/dL (8.7-10.4); Carbon Dioxide 18 mmol/L (20-30); Chloride 109 mmol/L (98-107); Glucose 120 mg/dL (74-106); Potassium 3.8 mmol/L (3.5-5.1); Sodium 139 mmol/L (136-145)
[2023-12-16 07:22] LABS: Aspartate Aminotransferase 15 U/L (13-40); Bilirubin, Total 1.6 mg/dL (0.2-1.0); Total Protein 6.2 g/dL (5.7-8.2)
[2023-12-16 07:47] LABS: INR 1.24 (0.9-1.15); Partial Thromboplastin Time 28.5 SEC (24.5-34.5); Prothrombin Time 12.9 sec (9.3-11.8)
[2023-12-16 08:00] VITALS: BP 139/69; PULSE 55; RESP 18; TEMP 98.2; O2SAT 96
[2023-12-16 08:10] VITALS: PULSE 51
[2023-12-16] MEDS ORDERED: ASPirin 81 mg TAB PO SCH (10:00)
[2023-12-16] MEDS: fentaNYL CITRATE 100 MCG/2 ML VL ONE (11:24)
[2023-12-16] MEDS: SODIUM CHL 0.9% 0 ML ONE (11:24)
[2023-12-16] MEDS: ANGIOMAX 250 MG VIAL IV ONE (11:24)
[2023-12-16] MEDS: MIDAZOLAM HCL 2MG/2ML 2ml VIAL (1mg/ml) ONE (11:24)
[2023-12-16] MEDS: LIDOCAINE 2%HCL (LOCAL ANESTH.) INJ 20ML MDV ONE (11:28)
[2023-12-16] MEDS: HEPARIN IN NS 1000Units/500mL 1,500 ML ONE (11:28)
[2023-12-16] MEDS: IODIXANOL 320MG/ML 100ML BTL IV ONE ×2 (11:28→13:01)
[2023-12-16] MEDS: CLOPIDOGREL BISULFATE 75 MG TAB PO ONE (15:23)
[2023-12-16] MEDS: CILOSTAZOL 100 MG TAB PO ONE (15:23)
[2023-12-16] MEDS: ENOXAPARIN SOD 120 MG/0.8 ML SYRINGE SC SCH (15:31)
[2023-12-16 15:36] LABS: Urine Bacteria None Seen /hpf (None Seen)
[2023-12-16 15:49] LABS: Urine Blood 1+ /uL (Negative); Urine Clarity Clear (Clear); Urine Color Light-Yellow (Yellow); Urine Protein, UAD TRACE (Negative); Urine Urobilinogen Normal (Negative); Urine WBC <1 /hpf (0 - 3); Urine pH 6.5 (5.0-9.0)
[2023-12-16 16:00] LABS: Amphetamine Screen, Urine Neg (NEGATIVE); Barbiturate Scree,Urine Neg (NEGATIVE); Benzodiazephine Screen, Urine Pos (NEGATIVE); Cannabinoid Screen, Urine Neg (NEGATIVE); Cocaine Screen, Urine Neg (NEGATIVE); Opiate Scree,Urine Neg (NEGATIVE); Phencyclidine Screen, Urine Neg (NEGATIVE)
[2023-12-16 16:37] LABS: Urine Specific Gravity > 1.050 (1.001-1.035)
[2023-12-16 17:00] VITALS: BP 150/67; PULSE 50; RESP 16; TEMP 98.1; O2SAT 95
[2023-12-16 18:34] VITALS: BP 150/67; PULSE 50; RESP 16; TEMP 98.1; O2SAT 95
[2023-12-16] MEDS ORDERED: ACET-1882 PO (19:57)
[2023-12-16] MEDS ORDERED: CILOSTAZOL 100 MG TAB PO SCH (22:00)
[2023-12-17] MEDS ORDERED: CLOPIDOGREL BISULFATE 75 MG TAB PO SCH (10:00)
== END 2023-12-16 19:09 | disposition home or self-care (01) | DRG 301 ==
LOC: ER 13:04 → TELE 17:51 → TELE-WESTW 17:53
PROVIDERS: ADMIT Internal Medicine; ATTEND Internal Medicine
PROC: B41DYZZ Fluoroscopy of Aorta and Bilateral Lower Extremity Arteries using Other Contrast (ICD-10-PCS; principal; 2023-12-16)
DX: E11.51 Type 2 diabetes mellitus with diabetic peripheral angiopathy without gangrene (principal); E11.65 Type 2 diabetes mellitus with hyperglycemia; I48.0 Paroxysmal atrial fibrillation; I10 Essential (primary) hypertension; E78.5 Hyperlipidemia, unspecified; E66.01 Morbid (severe) obesity due to excess calories; E80.6 Other disorders of bilirubin metabolism; I70.213 Atherosclerosis of native arteries of extremities with intermittent claudication, bilateral legs; Z83.3 Family history of diabetes mellitus; I25.2 Old myocardial infarction; Z87.442 Personal history of urinary calculi; Z82.49 Family history of ischemic heart disease and other diseases of the circulatory system; Z79.01 Long term (current) use of anticoagulants; Z68.31 Body mass index [BMI] 31.0-31.9, adult
CPT/HCPCS: 36415; 80053; 80307; 81001; 82248; 82306; 82550; 82607; 82962; 83036; 84443; 85025; 85610; 85730; 86850; 86900; 86901; 93925; 93970; 99152; G0378; J1815; J2250; Q9967

== ENCOUNTER 2024-02-10 09:25 | Emergency (ER) | payer OTHER ==
[~2024-02-10] VITALS: Ht 182.9 cm; Wt 112.0 kg
[~2024-02-10 09:25] MED LIST changes: +ACET-1882 PO
[2024-02-10 09:56] LABS: Urine Bacteria None Seen /hpf (None Seen)
[2024-02-10 10:01] LABS: Urine Blood Negative /uL (Negative); Urine Clarity Clear (Clear); Urine Color Light-Yellow (Yellow); Urine Protein, UAD Negative (Negative); Urine Specific Gravity 1.018 (1.001-1.035); Urine Urobilinogen Normal (Negative); Urine WBC 1 /hpf (0 - 3)
[2024-02-10 10:41] LABS: Basophils # (auto) 0 10 ^3/uL (0-0.2); Basophils % (auto) 0.4 % (0.0-2.0); Eosinophils # (auto) 0.2 10 ^3/uL (0-0.8); Eosinophils % (auto) 2.5 % (0.0-7.0); Hematocrit 43.2 % (41.0-53.0); Hemoglobin 14.6 g/dL (13.5-17.5); Lymphocytes # (auto) 1.4 10 ^3/uL (0.4-5.4); Lymphocytes % (auto) 17.3 % (10.0-50.0); Mean Corpuscular Hemoglobin 29.8 pg (28.0-32.0); Mean Corpuscular Hgb Conc. 33.8 g/dL (32.0-36.0); Mean Corpuscular Volume 88.3 fL (80.0-100.0); Monocytes # (auto) 0.8 10 ^3/uL (0-1.3); Monocytes % (auto) 9.7 % (0.0-12.0); Neutrophils # (auto) 5.7 10 ^3/uL (1.6-8.6); Neutrophils % (auto) 70.1 % (37.0-80.0); Platelet Count (auto) 207 10^3/uL (140-450); Red Cell Distribution Width 14.5 % (11.8-14.3); White Blood Cell 8.2 10^3/uL (4.4-10.8)
[2024-02-10 11:03] LABS: Alanine Aminotransferase 29 U/L (7-40); Albumin 4.7 g/dL (3.2-4.8); Alkaline Phosphatase 45 U/L (46-116); Anion Gap 10 (5-15); Aspartate Aminotransferase 18 U/L (13-40); BUN/Creatinine Ratio 15.4 (10.0-20.0); Bilirubin, Total 1.3 mg/dL (0.2-1.0); Blood Urea Nitrogen 16 mg/dL (9-23); Calcium 10.2 mg/dL (8.7-10.4); Carbon Dioxide 20 mmol/L (20-30); Chloride 106 mmol/L (98-107); Glucose 177 mg/dL (74-106); Potassium 4.3 mmol/L (3.5-5.1); Sodium 136 mmol/L (136-145); Total Protein 7.1 g/dL (5.7-8.2)
[2024-02-10] MEDS ORDERED: DIPH25CA51 PO (14:13)
[2024-02-10] MEDS ORDERED: NAP500T GT (14:13)
[2024-02-10 15:58] VITALS: BP 139/66; PULSE 64; RESP 14; TEMP 98; O2SAT 98
== END 2024-02-10 16:00 | disposition home or self-care (01) ==
LOC: ER 09:25
DX: M25.471 Effusion, right ankle (principal); E11.9 Type 2 diabetes mellitus without complications; I10 Essential (primary) hypertension; Z98.890 Other specified postprocedural states; Z79.899 Other long term (current) drug therapy; Z79.82 Long term (current) use of aspirin
CPT/HCPCS: 36415; 71045; 73610; 80053; 81001; 82962; 83880; 84484; 85025; 93005; 93970

== ENCOUNTER 2024-07-16 08:16 | Inpatient (IN) | payer OTHER ==
[~2024-07-16] VITALS: Ht 182.9 cm; Wt 119.1 kg
[~2024-07-16 08:16] MED LIST changes: +DIPH25CA51 PO; +NAP500T GT
--- NOTE | 2024-07-16 08:48 | ECG ---
[facility] Test Date: 2024-07-16 Test Time: 08:18:42 Pat Name: STEPHANIE LAGUNA Department: ER Room: Gender: M [employer]: GERARD : 1945 Requested By: MARIAELENA KUNZ Order Number: [id number] Reading MD: Ortega Aguilar Measurements Intervals [place] Rate: 67 P: 54 KS: 167 QRS: 25 QRSD: 153 T: 0 QT: 456 QTc: 482 Interpretive Statements Sinus rhythm Left bundle branch block Electronically Signed On 07-16-2024 12:12:30 PST by Ortega Aguilar Please click the below link to view image of tracing.
--- NOTE | 2024-07-16 08:50 | ED.PDOC ---
HPI Comments 79-year-old male brought in by EMS presents with a chief complaint of pre- syncope x 1 week. Patient mentions that he gets sudden onset of hot flashes, dizziness, and blurred vision, which EMS describes as "almost like a seizure" Patient mentions that he does not lose consciousness with these episodes, but does end up falling "on his butt". Patient denies hitting his head. Patient reports that he is on Eliquis, but has been off them for about x 2 weeks due to medication being expensive. No other symptoms or modifying factors present at this time. Chief Complaint: Dizziness Time Seen by MD: 08:30 Primary Care Provider: ? Reviewed Notes: Medications, Allergies Allergies: Coded Allergies: NO KNOWN ALLERGIES (Unverified , 12/11/21) Home Meds Active Scripts Diphenhydramine Hcl (BENADRYL CAPSULE) 25 Mg Cp, 50 MG PO TID for 7 Days, #21 CAP Prov:JADA CENTENO MD 02/10/24 Naproxen (NAPROSYN TABLET) 500 Mg Tb, 500 MG GT BID for 14 Days, #28 TAB Prov:JADA CENTENO MD 02/10/24 Acetaminophen (Acetaminophen) 325 Mg Tab, 650 MG PO Q6HP PRN for 30 Days, #240 TAB Prov:CONNOR OSUNA 12/16/23 Apixaban Base (ELIQUIS) 5 Mg Tab, 5 MG PO BID, #60 TAB Prov:MARISOL LOPEZ MD 03/02/23 Hydrocodone-Acetaminophen (Hydrocodone Bitartrate/AC 5-325 mg) 1 Tab Tab, 1 TAB PO Q6HP PRN, #20 TAB Prov:MARISOL LOPEZ MD 03/02/23 Metoprolol Tartrate (LOPRESSOR TABLET) 50 Mg Tb, 75 MG PO BID, #90 TAB Prov:MARISOL LOPEZ MD 03/02/23 Reported Medications Aspirin (Aspir-Low) 81 Mg Tab, 81 MG PO DAILY for 30 Days, MG 02/19/23 Atorvastatin Calcium (ATORVASTATIN CALCIUM) 80 Mg Tab, 1 TAB PO for cholesterol 02/19/23 Metformin Hydrochloride (Metformin Hcl) 1,000 Mg Tab, 1 TAB PO 02/19/23 Information Source: Patient, Emergency Med Personnel Mode of Arrival: EMS Severity: Moderate Timing: Days Duration: Since onset Prehospital treatment: None Onset: At Rest Cardiac Risk Factors: HTN, Diabetes, Other (A-Fib) PE Risk Factors: None History of: Aspirin Associated Signs and Symptoms: Syncope Past Medical History PAST MEDICAL HISTORY: Angina, Cancer, DM, HTN, Kidney Stones, [place] Surgical History: Denies all surgeries Family History Family History: Family hx of DM Social History Smoker: Non-Smoker Alcohol: Denies ETOH Use Drugs: Denies Drug Use Lives In: Home Constitutional: denies: chills, diaphoresis, fatigue, fever, malaise, sweats, weakness, others EENTM: reports: blurred vision; denies: double vision, ear bleeding, ear discharge, ear drainage, ear pain, ear ringing, eye pain, eye redness, hearing loss, mouth pain, mouth swelling, nasal discharge, nose bleeding, nose congestion, nose pain, photophobia, tearing, throat pain, throat swelling, voice changes, others Respiratory: denies: cough, hemoptysis, orthopnea, SOB at rest, shortness of breath, SOB with excertion, stridor, wheezing, others Cardiovascular: reports: dizzy spells, syncope; denies: chest pain, diaphoresis, Dyspnea on exertion, edema, irregular heart beat, left arm pain, lightheadedness, palpitations, PND, others Gastrointestinal: denies: abdomen distended, abdominal pain, blood streaked bowels, constipated, diarrhea, dysphagia, difficulty swallowing, hematemesis, melena, nausea, poor appetite, poor fluid intake, rectal bleeding, rectal pain, vomiting, others Genitourinary: denies: burning, dysuria, flank pain, frequency, hematuria, incontinence, penile discharge, penile sore, pain, testicle pain, testicle swelling, urgency, others Neurological: denies: dizziness, fainting, headache, left sided numbness, left sided weakness, numbness, paresthesia, pre-existing deficit, right sided numbness, right sided weakness, seizure, speech problems, tingling, tremors, weakness, others Musculoskeletal: denies: back pain, gout, joint pain, joint swelling, muscle pain, muscle stiffness, neck pain, others Integumetry: denies: bruises, change in color, change in hair/nails, dryness, laceration, lesions, lumps, rash, wounds, others Allergic/Immunocompromised: denies: Difficulty Healing, Frequent Infections, Hives, Itching, others Hematologic/Lymphatic: denies: anemia, blood clots, easy bleeding, easy bruising, swollen glands, others Endocrine: denies: excessive hunger, excessive sweating, excessive thirst, excessive urination, flushing, intolerance to cold, intolerance to heat, unexplained weight gain, unexplained weight loss, others Psychiatric: denies: anxiety, bipolar disorder, depression, hopeless, panic disorder, schizophrenia, sleepless, suicidal, others All Other Systems: Reviewed and Negative Physical Exam General Appearance: No Apparent Distress, Normal HEENT: Normal ENT Inspection, Pharynx Normal, TMs Normal Neck: Full Range of Motion, Non-Tender, Normal, Normal Inspection, Other (NON- TENDER C and L Spine) Respiratory: Chest Non-Tender, Lungs Clear, No Accessory Muscle Use, No Respiratory Distress, Normal Breath Sounds Cardiovascular: No Edema, No JVD, No Murmur, No Gallop, Normal Peripheral Pulses, Regular Rate/Rhythm Breast Exam: Deferred Gastrointestinal: No Organomegaly, Non Tender, No Pulsatile Mass, Normal Bowel Sounds, Soft Genitalia: Deferred Pelvic: Deferred Rectal: Deferred Extremities: No calf tenderness, Normal capillary refill, Normal inspection, Normal range of motion, Non-tender, Pedal edema (TRACE) Musculoskeletal : Apperance: Normal Neurologic: Alert, contact center engineer II-XII nml as Tested, No Motor Deficits, Normal Affect, Normal Mood, No Sensory Deficits Cerebellar Function: Normal Reflexes: Normal Skin: Dry, Normal Color, Warm Lymphatic: No Adenopathy EKG EKG : Comments Rate of 67 sinus rhythm left bundle branch block Was a procedure done? Was a procedure done?: No CP Differential Dx Differential Diagnosis: A-fib, A-Flutter, Angina, Atrial Dysrhythmia, Electrolyte Disorder, [place] Other Differential Diagnosis CAROTID STENOSIS, STROKE, TIA, SEIZURES, BRAIN HEMORRHAGE, HIP FRACTURE, SPINAL FRACTURE, MEDICATION SIDE EFFECTS X-Ray, Labs, Meds, VS Vital Signs Date Time Temp Pulse Resp B/P (MAP) Pulse Ox O2 Delivery O2 Flow Rate FiO2 07/16/24 09:28 67 20 93 Room Air* 0 21 07/16/24 08:18 67 07/16/24 08:16 98.4 70 20 184/96 (125) 99 Lab Test 2/7/25 11:22 07/16/24 10:16 07/16/24 08:26 Range/Units Troponin I High Sensitivity 7 8 </=54 ng/L White Blood Count 6.1 4.4-10.8 10^3/uL Red Blood Count 4.95 4.5-5.90 10^6/uL Hemoglobin 14.5 13.5-17.5 g/dL Hematocrit 43.0 41.0-53.0 % Mean Corpuscular Volume 86.9 80.0-100.0 fL Mean Corpuscular Hemoglobin 29.3 28.0-32.0 pg Mean Corpuscular Hemoglobin Concent 33.8 32.0-36.0 g/dL Red Cell Distribution Width 13.7 11.8-14.3 % Platelet Count 184 140-450 10^3/uL Mean Platelet Volume 9.8 6.9-10.8 fL Neutrophils (%) (Auto) 67.2 37.0-80.0 % Lymphocytes (%) (Auto) 21.6 10.0-50.0 % Monocytes (%) (Auto) 8.0 0.0-12.0 % Eosinophils (%) (Auto) 2.4 0.0-7.0 % Basophils (%) (Auto) 0.8 0.0-2.0 % Neutrophils # (Auto) 4.1 1.6-8.6 10 ^3/uL Lymphocytes # (Auto) 1.3 0.4-5.4 10 ^3/uL Monocytes # (Auto) 0.5 0-1.3 10 ^3/uL Eosinophils # (Auto) 0.1 0-0.8 10 ^3/uL Basophils # (Auto) 0 0-0.2 10 ^3/uL Nucleated Red Blood Cells 0.1 % Sodium Level 139 136-145 mmol/L Potassium Level 4.3 3.5-5.1 mmol/L Chloride Level 103 98-107 mmol/L Carbon Dioxide Level 27 20-31 mmol/L Anion Gap 9 5-15 Blood Urea Nitrogen 17 9-23 mg/dL Creatinine 1.04 0.700-1.30 mg/dL Glomerular Filtration Rate Calc 73 >90 mL/min BUN/Creatinine Ratio 16.3 10.0-20.0 Serum Glucose 240 H 74-106 mg/dL Calcium Level 10.1 8.7-10.4 mg/dL POC Glucose 215 H 70-106 mg/dl PATIENT: STEPHANIE LAGUNA ACCT: [id number] UNIT: [id number] : 1945 LOC: ER ROOM / BED: / AGE / SEX: 79 / M ADM STATUS: REG ER SERVICE [id number] ORDERING PHYSICIAN: MARIAELENA KUNZ MD PROCEDURE(s): CXR2 - CHEST TWO VIEWS ROUTINE REASON: pre syncope ORDER NUMBER(s): [id number], ACCESSION NUMBER(s): [id number] EXAM: XY CHEST TWO VIEWS ROUTINE HISTORY: pre syncope COMPARISON: Chest x-ray dated 02/28/2023. TECHNIQUE: Frontal and lateral views of the chest were performed. FINDINGS: No pneumothorax, pleural effusions, or consolidative infiltrates. There is mild central interstitial prominence. The posterior costophrenic angle is not included on the lateral film. The heart is not enlarged. No fractures are identified about the bony thorax. There is thoracic degenerative disc disease with thick bridging syndesmophytes present. IMPRESSION: Mild central interstitial prominence may be due to reactive airways disease or mild CHF. No other acute intrathoracic process is identified here. ATED BY: HENRY MARISCAL MD DICTATED DATE/TIME: 07/16/24912 SIGNED BY: HENRY MARISCAL MD SIGNED DATE/TIME: 07/16/24912 79-year-old male presents here with presyncopal episodes. He states for last 1 week he has been having multiple episodes where he becomes flushed, dizzy blurry vision. I am concerned about possible cardiac etiology carotid etiology. EKG demonstrates no significant ST changes. Blood work demonstrates normal CBC, CMP mostly abnormal except for mild hyper glycemia. Chest x-ray has been done which demonstrates mild central interstitial prominence may be due to reactive airway disease or mild CHF. At this time believe patient would benefit for inpatient admission. Hospitalist team has been contacted. Patient declines hitting his head during any of these episodes therefore a CT scan of the brain was not done. Patient currently not on any Eliquis Time of 1ST Reevaluation: 09:00 Reevaluation 1ST: Unchanged Patient Education/Counseling: Diagnosis, Treatment, Prognosis Family Education/Counseling: Diagnosis, Treatment, Prognosis Departure 1 Departure Time of Disposition: 10:00 Impression: Primary Impression: Pre-syncope Additional Impression: Hyperglycemia Disposition: ADMITTED INPATIENT Admit to: Tele Condition: Fair Critical Care Note Critical Care Time?: No Stability Stability form required: No Heart Score Heart Score: Heart Score Response (Comments) Value History Moderate Suspicious 1 EKG Normal 0 Age >65 2 Risk Factors 1 or 2 risk factors 1 Troponin Normal limit 0 Total 4 I personally scribed for MARIAELENA KUNZ MD ([email or web address]) on 07/16/24 at 08:50. Electronically submitted by Escobar Ford ([email or web address]). I personally scribed for MARIAELENA KUNZ MD ([email or web address]) on 07/16/24 at 13:35. Electronically submitted by Escobar Ford ([email or web address]). MARIAELENA KUNZ MD Jul 16, 2024 08:50
--- NOTE | 2024-07-16 09:15 | DVH ---
EXAM: XY CHEST TWO VIEWS ROUTINE HISTORY: pre syncope COMPARISON: Chest x-ray dated 02/28/2023. TECHNIQUE: Frontal and lateral views of the chest were performed. FINDINGS: No pneumothorax, pleural effusions, or consolidative infiltrates. There is mild central interstitial prominence. The posterior costophrenic angle is not included on the lateral film. The heart is not e nlarged. No fractures are identified about the bony thorax. There is thoracic degenerative disc dise ase with thick bridging syndesmophytes present. IMPRESSION: Mild central interstitial prominence may be due to reactive airways disease or mild CHF. No other acu te intrathoracic process is identified here.
[2024-07-16 09:28] VITALS: PULSE 67; RESP 20; O2SAT 93
[2024-07-16 10:39] LABS: Basophils # (auto) 0 10 ^3/uL (0-0.2); Basophils % (auto) 0.8 % (0.0-2.0); Eosinophils # (auto) 0.1 10 ^3/uL (0-0.8); Eosinophils % (auto) 2.4 % (0.0-7.0); Hemoglobin 14.5 g/dL (13.5-17.5); Lymphocytes # (auto) 1.3 10 ^3/uL (0.4-5.4); Lymphocytes % (auto) 21.6 % (10.0-50.0); Mean Corpuscular Hemoglobin 29.3 pg (28.0-32.0); Mean Corpuscular Hgb Conc. 33.8 g/dL (32.0-36.0); Mean Corpuscular Volume 86.9 fL (80.0-100.0); Monocytes # (auto) 0.5 10 ^3/uL (0-1.3); Neutrophils # (auto) 4.1 10 ^3/uL (1.6-8.6); Neutrophils % (auto) 67.2 % (37.0-80.0); Nucleated Red Blood Cells % 0.1 %; Platelet Count (auto) 184 10^3/uL (140-450); Red Blood Cells 4.95 10^6/uL (4.5-5.90); Red Cell Distribution Width 13.7 % (11.8-14.3); White Blood Cell 6.1 10^3/uL (4.4-10.8)
[2024-07-16 10:52] LABS: Calcium 10.1 mg/dL (8.7-10.4); Chloride 103 mmol/L (98-107); Potassium 4.3 mmol/L (3.5-5.1); Sodium 139 mmol/L (136-145)
[2024-07-16 10:53] LABS: Anion Gap 9 (5-15); Carbon Dioxide 27 mmol/L (20-31)
[2024-07-16 10:58] LABS: BUN/Creatinine Ratio 16.3 (10.0-20.0); Blood Urea Nitrogen 17 mg/dL (9-23)
[2024-07-16 11:06] LABS: Glucose 240 mg/dL (74-106)
[2024-07-16] MEDS ORDERED: ONDANSETRON HCL 4 MG/2 ML VIAL IV PRN (15:00)
[2024-07-16] MEDS ORDERED: NITROGLYCERIN 0.4 MG SL TAB SL PRN (15:00)
[2024-07-16] MEDS ORDERED: DEXTROSE (50%) 50ML SYRG IV PRN (15:00)
[2024-07-16] MEDS ORDERED: MORPHINE SULFATE INJ 2 MG/ml SYRG IV PRN (15:00)
--- NOTE | 2024-07-16 15:23 | DVHHP2 ---
History of Present Illness Reason for Visit: Syncope History of Present Illness 79-year-old male brought in by EMS presented with chief complaint of presyncope/syncope symptoms for 1 week. Patient states he feels like he gets hot flashes, dizziness and blurred vision patient does not lose consciousness and patient states that he and the falling on his butt". Patient denies hitting his head. Patient does report he is supposed to be on Eliquis paroxys mal atrial fibrillation but he has been off them for 2 weeks due to the medication being expensive. Patient reports having missed medications some days, patient does not check his own blood pressure at home.Patient will be admitted to telemetry. Past Medical History Angina, Cancer, DM, HTN, Kidney Stones, [place], AFib, PAD lower extremities Past Surgical History Denies Family History Family history of DM Smoke: No ALCOHOL: none Drugs: None Lives: Alone Review of Systems Constitutional: No: Fever, Chills, Sweats, Weakness, Malaise, Other Eyes: No: Pain, Vision change, Conjunctivae inflammation, Eyelid inflammation, Other, Redness ENT: No: Ear pain, Ear discharge, Nose pain, Nose discharge, Nose congestion, Mouth pain, Mouth swelling, Throat pain, Throat swelling, Other Respiratory: No: Cough, Dry, Shortness of breath, SOB with excertion, Wheezing, Hemoptysis, Pleuritic Pain, Sputum, Wheezing, Other Cardiovascular: No: Chest Pain, Palpitations, Orthopnea, Paroxysmal Noc. Dyspnea, Edema, Lt Headedness, Other Gastrointestinal: No: Nausea, Vomiting, Abdominal Pain, Diarrhea, Constipation, Melena, Hematochezia, Other Genitourinary: No Dysuria, No Frequency, No Incontinence, No Hematuria, No Retention, No Other Musculoskeletal: No: other, neck pain, shoulder pain, arm pain, back pain, hand pain, leg pain, foot pain Skin: No: Rash, Lesions, Jaundice, Bruising, Other Neurological: Other (Hot Flashes/Dizziness) Allergies: Coded Allergies: NO KNOWN ALLERGIES (Unverified , 12/11/21) Medications Current Medications Medications Dose Ordered Sig/Jarrett Route Start Time Stop Time Status Last Admin Dose Admin Acetaminophen 650 mg Q6HP PRN PO 07/16/24 15:00 UNV Acetaminophen/ Hydrocodone Bitart 1 tab Q4HP PRN PO 07/16/24 15:00 UNV Ondansetron HCl 4 mg Q4HP PRN IV 07/16/24 15:00 UNV Nitroglycerin 0.4 mg Q5MINP PRN SL 07/16/24 15:00 UNV Morphine Sulfate 2 mg Q30M PRN IV 07/16/24 15:00 UNV Diagnostic Test (Pha) 1 strip ACHS 07/16/24 17:00 UNV Insulin Human Regular HS SC 07/16/24 22:00 UNV Insulin Human Regular AC SC 07/16/24 17:00 UNV Dextrose 50 ml UD PRN IV 07/16/24 15:00 UNV Metoprolol Tartrate 50 mg BID PO 07/16/24 22:00 UNV Atorvastatin Calcium 20 mg HS PO 07/16/24 22:00 UNV Apixaban 5 mg BID PO 07/16/24 22:00 UNV Aspirin 81 mg DAILY PO 07/17/24 10:00 UNV Exam Vital Signs Vital Signs Date Time Temp Pulse Resp B/P (MAP) Pulse Ox O2 Delivery O2 Flow Rate FiO2 07/16/24 09:28 67 20 93 Room Air* 0 21 07/16/24 08:16 98.4 184/96 (125) General Appearance: Alert, Oriented X3, Cooperative, No acute distress HEENT: Atraumatic, PERRLA, EOMI, Mucous membr. moist/pink Respiratory: Clear to auscultation, Normal air movement Cardiovascular: Regular rate, Normal S1, Normal S2, No murmurs Abdominal: Normal bowel sounds, Soft, No tenderness, No hepatospenomegaly, No masses Extremities: No clubbing, No cyanosis, No edema, Normal pulses, No tenderness/swelling Skin: No rashes, No breakdown, No significant lesion Neuro: Normal gait, Normal speech, Strength at 5/5 X4 ext, Normal tone, Sensation intact, Cranial nerves 3-12 NL, Reflexes 2+ Psych/Mental Status: Mental status NL, Mood NL Labs/Xrays Reviewed Labs Test 07/16/24 11:22 07/16/24 10:16 07/16/24 08:26 Range/Units Troponin I High Sensitivity 7 </=54 ng/L White Blood Count 6.1 4.4-10.8 10^3/uL Red Blood Count 4.95 4.5-5.90 10^6/uL Hemoglobin 14.5 13.5-17.5 g/dL Hematocrit 43.0 41.0-53.0 % Mean Corpuscular Volume 86.9 80.0-100.0 fL Mean Corpuscular Hemoglobin 29.3 28.0-32.0 pg Mean Corpuscular Hemoglobin Concent 33.8 32.0-36.0 g/dL Red Cell Distribution Width 13.7 11.8-14.3 % Platelet Count 184 140-450 10^3/uL Mean Platelet Volume 9.8 6.9-10.8 fL Neutrophils (%) (Auto) 67.2 37.0-80.0 % Lymphocytes (%) (Auto) 21.6 10.0-50.0 % Monocytes (%) (Auto) 8.0 0.0-12.0 % Eosinophils (%) (Auto) 2.4 0.0-7.0 % Basophils (%) (Auto) 0.8 0.0-2.0 % Neutrophils # (Auto) 4.1 1.6-8.6 10 ^3/uL Lymphocytes # (Auto) 1.3 0.4-5.4 10 ^3/uL Monocytes # (Auto) 0.5 0-1.3 10 ^3/uL Eosinophils # (Auto) 0.1 0-0.8 10 ^3/uL Basophils # (Auto) 0 0-0.2 10 ^3/uL Nucleated Red Blood Cells 0.1 % Sodium Level 139 136-145 mmol/L Potassium Level 4.3 3.5-5.1 mmol/L Chloride Level 103 98-107 mmol/L Carbon Dioxide Level 27 20-31 mmol/L Anion Gap 9 5-15 Blood Urea Nitrogen 17 9-23 mg/dL Creatinine 1.04 0.700-1.30 mg/dL Glomerular Filtration Rate Calc 73 >90 mL/min BUN/Creatinine Ratio 16.3 10.0-20.0 Serum Glucose 240 H 74-106 mg/dL Calcium Level 10.1 8.7-10.4 mg/dL POC Glucose 215 H 70-106 mg/dl Assessment/Plan Assessment/Plan Syncope Admit To Telemetry Consult Cardiology History of AFib stopped taking Eliquis 2 weeks ago Resume Eliquis EF 50% 12/2023 Consult cardiology Hypertensive urgency Resume home medications Hydralazine p.r.n. Diabetes mellitus type 2 Accu-Cheks a.c. HS GI/VTE PPX/nutrition Protonix Consistent carb diet Plan discussed with: Patient My Orders Orders - ALICIA DAMON Procedure Category Date Status Time Admit ADMIT 07/16/24 Transmitted 14:51 Code Status CODE 07/16/24 Transmitted 14:51 Vital Signs [facility] 07/16/24 In Process 14:51 Review Orders With [facility] 07/16/24 In Process Adm. 14:51 Bedside Commode LUIS 07/16/24 In Process 14:51 Acetaminophen Tablet PHA 07/16/24 Logged (Tylenol Tablet) 15:00 Notify Of Changes [facility] 07/16/24 In Process From Base 14:51 Advance Directive LUIS 07/16/24 In Process 14:51 Basic Metabolic Panel LAB 07/17/24 Verified 04:00 Complete Blood Count LAB 07/17/24 Verified 04:00 Patient Condition ORDERS 07/16/24 Transmitted 14:51 Allergies LUIS 07/16/24 In Process 14:51 Hydrocodone-Acet PHA 07/16/24 Logged 5/325mg Tab (Ray 15:00 Ondansetron Hcl PHA 07/16/24 Logged (Zofran) 15:00 Hemoglobin A1c LAB 07/17/24 Verified 04:00 Consistent DIET 07/16/24 Transmitted Carb(Ccho)Diabetes Dinner Nitroglycerin PHA 07/16/24 Logged Sublingual (Ntrostat 15:00 Morphine Sulfate PHA 07/16/24 Logged Injection 15:00 Stat Ekg For Chest [facility] 07/16/24 In Process Pain 14:51 Notify Of Changes [facility] 07/16/24 In Process From Base 14:51 Enterprise Application Analyst For [facility] 07/16/24 In Process 24 Hours 14:51 Emergency Dysrhythmia [facility] 07/16/24 In Process Protocol 14:51 Rhythm Strips Once [facility] 07/16/24 In Process Every Shift 14:51 Oxygen By Nasal RT 07/16/24 Transmitted Cannula 14:51 Glucose Blood PHA 07/16/24 Logged (Accu-Chek Comfort 17:00 Insulin R (Human) PHA 07/16/24 Logged (Insulin R) 22:00 Insulin R (Human) PHA 07/16/24 Logged (Insulin R) 17:00 Dextrose 50% Syringe PHA 07/16/24 Logged 15:00 Metoprolol Tartrate PHA 07/16/24 Logged Tablet (Lopressor Ta 22:00 Atorvastatin (Lipitor) PHA 07/16/24 Logged 22:00 Apixaban (Eliquis) PHA 07/16/24 Logged 22:00 Aspirin Tablet PHA 07/17/24 Logged 10:00 Hydralazine Injection PHA 07/16/24 Verified (Apresoline Inject 15:15 Date of Service: Jul 16, 2024 Billing Provider: ALICIA DAMON Common Visit Codes: [id number] INP/OBS CARE(HIGH) ALICIA DAMON Jul 16, 2024 15:23
[2024-07-16] MEDS: InsuLIN REG 1unit/0.01ml Soln (100units/ml) SC SCH ×2 (16:31→22:33)
[2024-07-16] MEDS: HYDROcodone-ACET 5/325MG TAB PO PRN (16:31)
[2024-07-16] MEDS: ACCU-CHEK COMFORT CURVE STRIP VI SCH (16:32)
[2024-07-16] MEDS: METOPROLOL TARTRATE 50 MG TAB PO SCH (16:32)
[2024-07-16 17:17] LABS: Urine Bacteria None Seen /hpf (None Seen); Urine Blood Negative /uL (Negative); Urine Clarity Clear (Clear); Urine Color Yellow (Yellow); Urine Mucus FEW (None Seen); Urine Protein, UAD 1+ (Negative); Urine Specific Gravity 1.026 (1.001-1.035); Urine Squamous Epithelial Cell FEW /hpf (<5); Urine Urobilinogen Normal (Negative); Urine WBC < 1 /HPF (0-3); Urine pH 6.5 (5.0-9.0)
[2024-07-16] MEDS ORDERED: METOPROLOL TARTRATE 50 MG TAB PO SCH (22:00)
[2024-07-16] MEDS: APIXABAN 5 MG TAB PO SCH (22:29)
[2024-07-16] MEDS: ATORVASTATIN 20 MG TAB PO SCH (22:30)
--- NOTE | 2024-07-16 23:37 | DVHINCON2 ---
Date of service: Jul 16, 2024 Referring Physician Seven Reason for Consultation Syncope History of Present Illness This is a 79-year-old male with a PMH of Angina, Cancer, DM, HTN, Kidney Stones, PR who was brought in by EMS with a complaint of pre-syncope x 1 week. Patient mentions that he gets sudden onset of hot flashes, dizziness, and blurred vision, which EMS described as "almost like a seizure". Patient notes that he does not have LOC with these episodes, but does end up falling "on his butt". Patient denies hitting his head. Patient reports that he is on Eliquis, but has been off them for about 2 weeks due to the medication being expensive. EKG: rate of 67 sinus rhythm left bundle branch block. Chest x-ray shows mild central interstitial prominence may be due to reactive airways disease or mild CHF. Troponin is negative. Previous echocardiogram showed EF 50% on 12/2023. Patient was admitted to the hospital. I am asked to consult on this patient. Family History: Alcoholism Diabetes mellitus G8 MOTHER G8 BROTHER Ischemic heart disease uncle Kidney stones G8 MOTHER Allergies: Coded Allergies: NO KNOWN ALLERGIES (Unverified , 12/11/21) Home Meds Active Scripts Diphenhydramine Hcl (BENADRYL CAPSULE) 25 Mg Cp, 50 MG PO TID for 7 Days, #21 CAP Prov:JADA CENTENO MD 02/10/24 Naproxen (NAPROSYN TABLET) 500 Mg Tb, 500 MG GT BID for 14 Days, #28 TAB Prov:JADA CENTENO MD 02/10/24 Acetaminophen (Acetaminophen) 325 Mg Tab, 650 MG PO Q6HP PRN for 30 Days, #240 TAB Prov:CONNOR OSUNA 12/16/23 Apixaban Base (ELIQUIS) 5 Mg Tab, 5 MG PO BID, #60 TAB Prov:MARISOL LOPEZ MD 03/02/23 Hydrocodone-Acetaminophen (Hydrocodone Bitartrate/AC 5-325 mg) 1 Tab Tab, 1 TAB PO Q6HP PRN, #20 TAB Prov:MARISOL LOPEZ MD 03/02/23 Metoprolol Tartrate (LOPRESSOR TABLET) 50 Mg Tb, 75 MG PO BID, #90 TAB Prov:MARISOL LOPEZ MD 03/02/23 Reported Medications Aspirin (Aspir-Low) 81 Mg Tab, 81 MG PO DAILY for 30 Days, MG 02/19/23 Atorvastatin Calcium (ATORVASTATIN CALCIUM) 80 Mg Tab, 1 TAB PO for cholesterol 02/19/23 Metformin Hydrochloride (Metformin Hcl) 1,000 Mg Tab, 1 TAB PO 02/19/23 Current Medications Current Medications Medications (Trade) Dose Ordered Sig/Jarrett Route PRN Reason Start Time Stop Time Status Last Admin Acetaminophen (Tylenol Tablet) 650 mg Q6HP PRN PO PAIN SCALE 1-3 OR TEMP>100.4 07/16/24 15:00 Acetaminophen/ Hydrocodone Bitart ([place] 5/325MG Tab) 1 tab Q4HP PRN PO MODERATE PAIN (4-6 PAIN SCALE) 07/16/24 15:00 07/16/24 16:31 Ondansetron HCl (Zofran) 4 mg Q4HP PRN IV NAUSEA / VOMITING 07/16/24 15:00 Nitroglycerin (Ntrostat Sublingual) 0.4 mg Q5MINP PRN SL FOR CHEST PAIN 07/16/24 15:00 Morphine Sulfate 2 mg Q30M PRN IV FOR CHEST PAIN 07/16/24 15:00 Diagnostic Test (Pha) (Accu-Chek Comfort Curve T) 1 strip ACHS 07/16/24 17:00 07/16/24 16:32 Insulin Human Regular (InsuLIN R) HS SC 07/16/24 22:00 Insulin Human Regular (InsuLIN R) AC SC 07/16/24 17:00 07/16/24 16:31 Dextrose 50 ml UD PRN IV Blood Sugar LESS THAN 60 07/16/24 15:00 Metoprolol Tartrate (Lopressor Tablet) 50 mg BID PO 07/16/24 22:00 07/16/24 15:25 DC Atorvastatin Calcium (Lipitor) 20 mg HS PO 07/16/24 22:00 Apixaban (Eliquis) 5 mg BID PO 07/16/24 22:00 Aspirin 81 mg DAILY PO 07/17/24 10:00 Hydralazine HCl (Apresoline Injection) 10 mg Q6HP PRN IV SBP>150 07/16/24 15:15 Metoprolol Tartrate (Lopressor Tablet) 50 mg BID PO 07/16/24 15:30 07/16/24 16:32 Review of Systems Constitutional: denies: chills, diaphoresis, fatigue, fever, malaise, sweats, weakness, others EENTM: reports: blurred vision; denies: double vision, ear bleeding, ear discharge, ear drainage, ear pain, ear ringing, eye pain, eye redness, hearing loss, mouth pain, mouth swelling, nasal discharge, nose bleeding, nose congestion, nose pain, photophobia, tearing, throat pain, throat swelling, voice changes, others Respiratory: denies: cough, hemoptysis, orthopnea, SOB at rest, shortness of breath, SOB with excertion, stridor, wheezing, others Cardiovascular: reports: dizzy spells, syncope; denies: chest pain, diaphoresis, Dyspnea on exertion, edema, irregular heart beat, left arm pain, lightheadedness, palpitations, PND, others Gastrointestinal: denies: abdomen distended, abdominal pain, blood streaked bowels, constipated, diarrhea, dysphagia, difficulty swallowing, hematemesis, melena, nausea, poor appetite, poor fluid intake, rectal bleeding, rectal pain, vomiting, others Genitourinary: denies: burning, dysuria, flank pain, frequency, hematuria, incontinence, penile discharge, penile sore, pain, testicle pain, testicle swelling, urgency, others Neurological: denies: dizziness, fainting, headache, left sided numbness, left sided weakness, numbness, paresthesia, pre-existing deficit, right sided numbness, right sided weakness, seizure, speech problems, tingling, tremors, weakness, others Musculoskeletal: denies: back pain, gout, joint pain, joint swelling, muscle pain, muscle stiffness, neck pain, others Integumetry: denies: bruises, change in color, change in hair/nails, dryness, laceration, lesions, lumps, rash, wounds, others Allergic/Immunocompromised: denies: Difficulty Healing, Frequent Infections, Hives, Itching, others Hematologic/Lymphatic: denies: anemia, blood clots, easy bleeding, easy bruising, swollen glands, others Endocrine: denies: excessive hunger, excessive sweating, excessive thirst, excessive urination, flushing, intolerance to cold, intolerance to heat, unexplained weight gain, unexplained weight loss, others Psychiatric: denies: anxiety, bipolar disorder, depression, hopeless, panic disorder, schizophrenia, sleepless, suicidal, others All Other Systems: Reviewed and Negative Vital Signs Vital Signs Date Time Temp Pulse Resp B/P (MAP) Pulse Ox O2 Delivery O2 Flow Rate FiO2 07/16/24 17:30 75 140/60 07/16/24 16:32 98.6 16 97 98.6 07/16/24 09:28 Room Air* 0 21 Physical Exam GENERAL: Awake, alert, oriented. LUNGS: Clear. CARDIOVASCULAR: Heart sounds are good. ABDOMEN: Soft. Labs/Diagnostic Data Labs Test 07/16/24 17:12 07/16/24 16:25 07/16/24 11:22 07/16/24 10:16 Range/Units Urine Color Yellow Yellow Urine Clarity Clear Clear Urine pH 6.5 5.0-9.0 Urine Specific [place] 1.026 1.001-1.035 Urine Protein 1+ H Negative Urine Ketones Negative Negative Urine Blood Negative Negative /uL Urine Nitrite Negative Negative Urine Bilirubin Negative Negative Urine Urobilinogen Normal Negative mg/dL Urine Leukocyte Esterase Negative Negative /uL Urine RBC 1 0 - 3 /hpf Urine Microscopic WBC < 1 0-3 /HPF Urine Squamous Epithelial Cells Few <5 /hpf Urine Bacteria None seen None Seen /hpf Urine Mucus Few None Seen Urine Glucose Trace Normal mg/dL POC Glucose 166 H 70-106 mg/dl Troponin I High Sensitivity 7 </=54 ng/L White Blood Count 6.1 4.4-10.8 10^3/uL Red Blood Count 4.95 4.5-5.90 10^6/uL Hemoglobin 14.5 13.5-17.5 g/dL Hematocrit 43.0 41.0-53.0 % Mean Corpuscular Volume 86.9 80.0-100.0 fL Mean Corpuscular Hemoglobin 29.3 28.0-32.0 pg Mean Corpuscular Hemoglobin Concent 33.8 32.0-36.0 g/dL Red Cell Distribution Width 13.7 11.8-14.3 % Platelet Count 184 140-450 10^3/uL Mean Platelet Volume 9.8 6.9-10.8 fL Neutrophils (%) (Auto) 67.2 37.0-80.0 % Lymphocytes (%) (Auto) 21.6 10.0-50.0 % Monocytes (%) (Auto) 8.0 0.0-12.0 % Eosinophils (%) (Auto) 2.4 0.0-7.0 % Basophils (%) (Auto) 0.8 0.0-2.0 % Neutrophils # (Auto) 4.1 1.6-8.6 10 ^3/uL Lymphocytes # (Auto) 1.3 0.4-5.4 10 ^3/uL Monocytes # (Auto) 0.5 0-1.3 10 ^3/uL Eosinophils # (Auto) 0.1 0-0.8 10 ^3/uL Basophils # (Auto) 0 0-0.2 10 ^3/uL Nucleated Red Blood Cells 0.1 % Sodium Level 139 136-145 mmol/L Potassium Level 4.3 3.5-5.1 mmol/L Chloride Level 103 98-107 mmol/L Carbon Dioxide Level 27 20-31 mmol/L Anion Gap 9 5-15 Blood Urea Nitrogen 17 9-23 mg/dL Creatinine 1.04 0.700-1.30 mg/dL Glomerular Filtration Rate Calc 73 >90 mL/min BUN/Creatinine Ratio 16.3 10.0-20.0 Serum Glucose 240 H 74-106 mg/dL Calcium Level 10.1 8.7-10.4 mg/dL Assessment Syncope. History of AFib. Hypertensive urgency. Diabetes mellitus type 2 . Plan/Recommendation I agree with your ongoing assessment and care of plan. Telemetry reviewed. Morphine and [place] for pain management. Eliquis. Aspirin, Lipitor, Metoprolol. Nitro SL. Additional plan as per the hospital course. A total of 45 minutes was spent reviewing the patient record, examining the patient, making a diagnostic and therapeutic plan, discussing this plan with medical personnel, following up on diagnostic studies and following the patient for clinical stability excluding any and all procedures. At least 50% of this time was spent in direct, [id number] contact. Plan discussed with: Patient NIKOLE CASEY MD Jul 16, 2024 22:04
[2024-07-17] VITALS (55 sets, daily range): BP systolic 87–209; BP diastolic 47–91; PULSE 61–99; RESP 11–20; TEMP 97.6–98.8; O2SAT 89–100
--- NOTE | 2024-07-17 05:09 | ECG ---
[facility] Test Date: 2024-07-17 Test Time: 05:04:43 Pat Name: STEPHANIE LAGUNA Department: Room: [address] [place] [address] Gender: M Window Repairer: IRENE GAN : 1945 Requested By: BARBARA TORREZ Order Number: [id number] Reading MD: Ortega Aguilar Measurements Intervals [place] Rate: 65 P: 0 WI: 167 QRS: 7 QRSD: 153 T: 41 QT: 462 QTc: 481 Interpretive Statements Sinus rhythm Left bundle branch block Baseline wander in lead(s) II,III,aVF Electronically Signed On 07-17-2024 19:40:05 PST by Ortega Aguilar Please click the below link to view image of tracing.
[2024-07-17] MEDS: ENOXAPARIN SOD 120 MG/0.8 ML SYRINGE SC ONE (08:30)
[2024-07-17] MEDS: hydrALAZINE HCL 20 MG/ML VL IV PRN (08:31)
[2024-07-17] MEDS: ASPirin 81 mg TAB PO SCH (09:02)
[2024-07-17] MEDS: LOSARTAN POTASSIUM 50 MG TAB PO SCH (09:02)
--- NOTE | 2024-07-17 09:26 | DVHPN2 ---
Consult Progress Note Subjective Patient reports: Feels worse Review of Systems: RESPIRATORY:Abnormal (intermittent SOB), NEURO:Abnormal (light headed, passing out) Objective vital signs Vital Sign Date Time Temp Pulse Resp B/P (MAP) Pulse Ox O2 Delivery O2 Flow Rate FiO2 07/17/24 09:02 193/108 07/17/24 05:00 97.6 66 20 98 97.6 07/17/24 03:23 Room Air* 0 21 Total Intake and Output 07/16/24 07/16/24 07/17/24 15:00 23:00 07:00 Intake Total 275 ml Balance 275 ml medications Current Medications Medications Dose Ordered Sig/Jarrett Route Start Time Stop Time Status Last Admin Dose Admin Acetaminophen 650 mg Q6HP PRN PO 07/16/24 15:00 Acetaminophen/ Hydrocodone Bitart 1 tab Q4HP PRN PO 07/16/24 15:00 07/16/24 22:30 1 TAB Ondansetron HCl 4 mg Q4HP PRN IV 07/16/24 15:00 Nitroglycerin 0.4 mg Q5MINP PRN SL 07/16/24 15:00 Morphine Sulfate 2 mg Q30M PRN IV 07/16/24 15:00 Diagnostic Test (Pha) 1 strip ACHS 07/16/24 17:00 07/17/24 06:59 1 STRIP Insulin Human Regular HS SC 07/16/24 22:00 07/16/24 22:33 4 UNITS Insulin Human Regular AC SC 07/16/24 17:00 07/17/24 06:58 9 UNITS Dextrose 50 ml UD PRN IV 07/16/24 15:00 Atorvastatin Calcium 20 mg HS PO 07/16/24 22:00 07/16/24 22:30 20 MG Apixaban 5 mg BID PO 07/16/24 22:00 Hold 07/16/24 22:29 5 MG Aspirin 81 mg DAILY PO 07/17/24 10:00 Hydralazine HCl 10 mg Q6HP PRN IV 07/16/24 15:15 07/17/24 08:31 10 MG Enoxaparin Sodium 120 mg Q12HR SC 07/17/24 22:00 Losartan Potassium 100 mg DAILY PO 07/17/24 08:45 07/17/24 09:02 100 MG Dopamine HCl/ Dextrose 250 ml @ 13.14 mls/ hr Q19H2M IV 07/17/24 08:45 Examination: CVS:Abnormal (9 sec heart block, A fib, Sinus rhythm.), NEURO:Abnormal (Syncope) laboratory and microbiology Laboratory Tests 07/16/24 10:16 Test 07/16/24 10:16 Range/Units Serum Glucose 240 H 74-106 mg/dL Problem List/Assessment/Plan Problem List/Assessment/Plan * Syncope - Patient having heart pauses lasting up to 9 sec. Continue telemetry monitoring. * Heart Pause - multiple episodes on tele review. Avoid AV arlene blockers. Follow up ECHO. Transfer to ICU. Dopamine drip. Consent for Permanent pacemaker. * Paroxysmal Atrial Fibrillation - On FD lovenox while in hospital. Hold for know in setting of possible PPM. Resume eliquis upon discharge. * Hypertensive Urgency - Avoid AV arlene blockers. Continue losartan 100 mg daily. IV prns. Case Discussed with Dr Boyd. Transfer patient to ICU. Continue on dopamine drip for heart rate. Consent for permanent pacemaker placement. Critical care, time spent: 48 minutes This medical document was created using an electronic medical record system with voice recognition software and computerized dictation system. Although this document has been carefully reviewed, there might still be some phonetic and typographical errors. Occasional wrong-word or ``sound-alike substitutions may have occurred due to the inherent limitations of voice recognition software. These areas are purely typographical due to imperfections of the software programs and do not reflect any compromise in the patient's medical care. Please read the chart carefully and recognize, using context, where these substitutions have occurred. Thank you for allowing me to participate in the management of this patient. The treatment plan was discussed with and agreed upon by patient/family including requesting consultants and ordering of imaging/procedures. Plan discussed with: Patient Date of Service: Jul 17, 2024 Billing Provider: ELAINE JOHN Common Visit Codes: [id number] INP/OBS CARE(HIGH), [id number] CARE 30-74 MIN ELAINE JOHN Jul 17, 2024 09:26
[2024-07-17] MEDS ORDERED: LOSARTAN POTASSIUM 50 MG TAB PO SCH (10:00)
--- NOTE | 2024-07-17 10:44 | ECG ---
[facility] Test Date: 2024-07-17 Test Time: 06:00:19 Pat Name: STEPHANIE LAGUNA Department: Room: [address] [place] [address] Gender: M School Social Worker: MARIBELL : 1945 Requested By: BARBARA TORREZ Order Number: [id number] Reading MD: Ortega Aguilar Measurements Intervals [place] Rate: 79 P: 68 [place]: 158 QRS: -18 QRSD: 160 T: 119 QT: 486 QTc: 558 Interpretive Statements Sinus rhythm Left bundle branch block Electronically Signed On 07-17-2024 19:42:16 PST by Ortega Aguilar Please click the below link to view image of tracing.
[2024-07-17] MEDS: DOPamine 1600MCG/ML D5W 250 ML IV SCH (11:09)
[2024-07-17 11:27] LABS: Basophils # (auto) 0 10 ^3/uL (0-0.2); Basophils % (auto) 0.3 % (0.0-2.0); Eosinophils # (auto) 0 10 ^3/uL (0-0.8); Eosinophils % (auto) 0.5 % (0.0-7.0); Lymphocytes # (auto) 1.7 10 ^3/uL (0.4-5.4); Lymphocytes % (auto) 18.4 % (10.0-50.0); Mean Corpuscular Hemoglobin 28.8 pg (28.0-32.0); Mean Corpuscular Hgb Conc. 33.4 g/dL (32.0-36.0); Mean Corpuscular Volume 86.4 fL (80.0-100.0); Monocytes # (auto) 0.7 10 ^3/uL (0-1.3); Monocytes % (auto) 7.9 % (0.0-12.0); Neutrophils # (auto) 6.8 10 ^3/uL (1.6-8.6); Neutrophils % (auto) 72.9 % (37.0-80.0); Platelet Count (auto) 217 10^3/uL (140-450); Red Cell Distribution Width 13.7 % (11.8-14.3); White Blood Cell 9.3 10^3/uL (4.4-10.8)
[2024-07-17 11:49] LABS: INR 1.08 (0.9-1.15); Partial Thromboplastin Time 26.5 SEC (24.5-34.5); Prothrombin Time 11.4 sec (9.3-11.8)
[2024-07-17 11:51] LABS: Alanine Aminotransferase 22 U/L (7-40); Alkaline Phosphatase 49 U/L (46-116); Anion Gap 12 (5-15); Aspartate Aminotransferase 22 U/L (13-40); BUN/Creatinine Ratio 18.8 (10.0-20.0); Blood Urea Nitrogen 19 mg/dL (9-23); Carbon Dioxide 24 mmol/L (20-31); Chloride 98 mmol/L (98-107); Total Protein 7.6 g/dL (5.7-8.2)
[2024-07-17 11:54] LABS: Albumin 5.1 g/dL (3.2-4.8); Bilirubin, Total 1.4 mg/dL (0.2-1.0); Calcium 10.5 mg/dL (8.7-10.4); Glucose 248 mg/dL (74-106); Magnesium 1.3 mg/dL (1.6-2.6); Sodium 134 mmol/L (136-145)
--- NOTE | 2024-07-17 18:54 | DVHPN2 ---
Subjective bradycardic Changes from previous H/P or p: No Changes Eyes: No Pain, No Vision change, No Conjunctivae inflammation, No Eyelid inflammation, No Other, No Redness ENT: No Ear pain, No Ear discharge, No Nose pain, No Nose discharge, No Nose congestion, No Mouth pain, No Mouth swelling, No Throat pain, No Throat swelling, No Other Cardiovascular: No Chest Pain, No Palpitations, No Orthopnea, No Paroxysmal Noc. Dyspnea, No Edema, No Lt Headedness, No Other Respiratory: No Cough, No Dry, No Shortness of breath, No SOB with excertion, No Wheezing, No Hemoptysis, No Pleuritic Pain, No Sputum, No Other Gastrointestinal: No Nausea, No Vomiting, No Abdominal Pain, No Diarrhea, No Constipation, No Melena, No Hematochezia, No Other Genitourinary: No Dysuria, No Frequency, No Incontinence, No Hematuria, No Retention, No Other Musculoskeletal: No other, No neck pain, No shoulder pain, No arm pain, No back pain, No hand pain, No leg pain, No foot pain Skin: No Rash, No Lesions, No Jaundice, No Bruising, No Other Objective Vitals Vital Signs Date Time Temp Pulse Resp B/P (MAP) Pulse Ox O2 Delivery O2 Flow Rate FiO2 07/17/24 18:00 64 07/17/24 18:00 17 99 Nasal Cannula* 2 28 07/17/24 16:00 144/74 07/17/24 13:00 97.8 97.8 Intake/Output Intake and Output 07/17/24 05:00 Intake Total 275 ml Balance 275 ml Intake Oral 275 ml General Appearance: Alert, Oriented X3 Lungs: Clear to auscultation Medications Current Medications Medications Dose Ordered Sig/Jarrett Route Start Time Stop Time Status Last Admin Dose Admin Acetaminophen 650 mg Q6HP PRN PO 07/16/24 15:00 Acetaminophen/ Hydrocodone Bitart 1 tab Q4HP PRN PO 07/16/24 15:00 07/16/24 22:30 1 TAB Ondansetron HCl 4 mg Q4HP PRN IV 07/16/24 15:00 Nitroglycerin 0.4 mg Q5MINP PRN SL 07/16/24 15:00 Morphine Sulfate 2 mg Q30M PRN IV 07/16/24 15:00 Diagnostic Test (Pha) 1 strip ACHS 07/16/24 17:00 07/17/24 17:00 1 STRIP Insulin Human Regular HS SC 07/16/24 22:00 07/16/24 22:33 4 UNITS Insulin Human Regular AC SC 07/16/24 17:00 07/17/24 17:58 3 UNITS Dextrose 50 ml UD PRN IV 07/16/24 15:00 Atorvastatin Calcium 20 mg HS PO 07/16/24 22:00 07/16/24 22:30 20 MG Apixaban 5 mg BID PO 07/16/24 22:00 Hold 07/16/24 22:29 5 MG Aspirin 81 mg DAILY PO 07/17/24 10:00 Hydralazine HCl 10 mg Q6HP PRN IV 07/16/24 15:15 07/17/24 08:31 10 MG Enoxaparin Sodium 120 mg Q12HR SC 07/17/24 22:00 Future hold Losartan Potassium 100 mg DAILY PO 07/17/24 08:45 07/17/24 11:04 100 MG Dopamine HCl/ Dextrose 250 ml @ 13.14 mls/ hr Q19H2M IV 07/17/24 08:45 07/17/24 11:09 13.14 MLS/HR Magnesium Sulfate/ Dextrose 100 ml @ 100 mls/hr Q1HR IV 07/17/24 19:00 07/17/24 20:59 Laboratory Results Laboratory Tests 07/17/24 10:45 Chemistry Test 07/17/24 10:45 Albumin 5.1 g/dL (3.2-4.8) H Calcium Level 10.5 mg/dL (8.7-10.4) H Magnesium Level 1.3 mg/dL (1.6-2.6) L Total Protein 7.6 g/dL (5.7-8.2) Coagulation Test 07/17/24 10:45 Prothrombin Time 11.4 sec (9.3-11.8) Prothrombin Time INR 1.08 (0.9-1.15) Activated Partial Thromboplast Time 26.5 SEC (24.5-34.5) LFT Test 07/17/24 10:45 Alanine Aminotransferase (ALT) 22 U/L (7-40) Alkaline Phosphatase 49 U/L (46-116) Aspartate Amino Transferase (AST) 22 U/L (13-40) Total Bilirubin 1.4 mg/dL (0.2-1.0) H HgA1c, TSH Test 07/17/24 10:45 Hemoglobin A1c 7.6 % A1C (<5.7) H Urinalysis Test 07/16/24 17:12 Urine Color Yellow (Yellow) Urine Clarity Clear (Clear) Urine pH 6.5 (5.0-9.0) Urine Specific [place] 1.026 (1.001-1.035) Urine Protein 1+ (Negative) H Urine Ketones Negative (Negative) Urine Blood Negative /uL (Negative) Urine Nitrite Negative (Negative) Urine Bilirubin Negative (Negative) Urine Urobilinogen Normal mg/dL (Negative) Urine Leukocyte Esterase Negative /uL (Negative) Urine RBC 1 /hpf (0 - 3) Urine Microscopic WBC < 1 /HPF (0-3) Urine Squamous Epithelial Cells Few /hpf (<5) Urine Bacteria None seen /hpf (None Seen) Urine Mucus Few (None Seen) Urine Glucose Trace mg/dL (Normal) Assessment/Plan Assessment/Plan Syncope Admit To Telemetry bradycardic and hypotensive>transfer to ICU for dopamine drip History of AFib stopped taking Eliquis 2 weeks ago Resume Eliquis EF 50% 12/2023 Consult cardiology Hypertensive urgency Resume home medications Hydralazine p.r.n. Diabetes mellitus type 2 Accu-Cheks a.c. HS GI/VTE PPX/nutrition Protonix Consistent carb diet Plan discussed with: Patient Date of Service: Jul 17, 2024 Billing Provider: MARY MENDENHALL MD Common Visit Codes: [id number] INP/OBS CARE(HIGH) MARY MENDENHALL MD Jul 17, 2024 18:54
--- NOTE | 2024-07-17 19:34 | DVHPN2 ---
Consult Progress Note Subjective Patient reports: Feels worse Other Systems: Patient was seen and evaluated in follow up in the ICU. Patient reports feeling worse, has intermittent SOB and lightheadedness. Patient having multiple episodes of heart pauses, advised for PPM insertion. Risks and benefits were discussed with the patient. Telemetry reviewed. Objective vital signs Vital Sign Date Time Temp Pulse Resp B/P (MAP) Pulse Ox O2 Delivery O2 Flow Rate FiO2 07/17/24 14:00 75 14 154/81 (105) 100 07/17/24 14:00 Nasal Cannula* 2 28 07/17/24 13:00 97.8 97.8 Total Intake and Output 07/16/24 07/16/24 07/17/24 15:00 23:00 07:00 Intake Total 275 ml Balance 275 ml medications Current Medications Medications Dose Ordered Sig/Jarrett Route Start Time Stop Time Status Last Admin Dose Admin Acetaminophen 650 mg Q6HP PRN PO 07/16/24 15:00 Acetaminophen/ Hydrocodone Bitart 1 tab Q4HP PRN PO 07/16/24 15:00 07/16/24 22:30 1 TAB Ondansetron HCl 4 mg Q4HP PRN IV 07/16/24 15:00 Nitroglycerin 0.4 mg Q5MINP PRN SL 07/16/24 15:00 Morphine Sulfate 2 mg Q30M PRN IV 07/16/24 15:00 Diagnostic Test (Pha) 1 strip ACHS 07/16/24 17:00 07/17/24 11:30 1 STRIP Insulin Human Regular HS SC 07/16/24 22:00 07/16/24 22:33 4 UNITS Insulin Human Regular AC SC 07/16/24 17:00 07/17/24 11:30 6 UNITS Dextrose 50 ml UD PRN IV 07/16/24 15:00 Atorvastatin Calcium 20 mg HS PO 07/16/24 22:00 07/16/24 22:30 20 MG Apixaban 5 mg BID PO 07/16/24 22:00 Hold 07/16/24 22:29 5 MG Aspirin 81 mg DAILY PO 07/17/24 10:00 Hydralazine HCl 10 mg Q6HP PRN IV 07/16/24 15:15 07/17/24 08:31 10 MG Enoxaparin Sodium 120 mg Q12HR SC 07/17/24 22:00 Losartan Potassium 100 mg DAILY PO 07/17/24 08:45 07/17/24 11:04 100 MG Dopamine HCl/ Dextrose 250 ml @ 13.14 mls/ hr Q19H2M IV 07/17/24 08:45 07/17/24 11:09 13.14 MLS/HR Examination: GENERAL:Normal, HEENT:Normal, NECK:Normal, CVS:Abnormal (9 sec heart block, A fib, Sinus rhythm.), ABDOMEN:Normal, MSK:Normal, SKIN:Normal, NEURO:Abnormal (Syncope) laboratory and microbiology Laboratory Tests 07/17/24 10:45 Test 07/17/24 10:45 Range/Units Serum Glucose 248 H 74-106 mg/dL Problem List/Assessment/Plan Problem List/Assessment/Plan Syncope. Heart pause. Paroxysmal atrial fibrillation. Hypertensive urgency. Continued all current supportive medical care. Patient has been seen by Oscar Pang BOOKKEEPER on my behalf, him and I discussed the plan with the patient. Continue telemetry monitoring. Avoid AV arlene blockers. Echocardiogram. Consent for permanent pacemaker. Dopamine drip. On FD Lovenox while in hospital, hold for now in setting of possible PPM. Resume eliquis upon discharge. Continue losartan 100 mg daily. Additional plan as per the hospital course. Plan discussed with: Patient Date of Service: Jul 17, 2024 Billing Provider: NIKOLE CASEY MD Cardiology Common Codes: [id number] HOSP CARE(High, [id number] CARE 30-74 MIN NIKOLE CASEY MD Jul 17, 2024 15:35
[2024-07-17] MEDS: MAGNESIUM SULFATE 1GM/100ML 100 ML IV SCH (19:38)
[2024-07-17] MEDS ORDERED: ENOXAPARIN SOD 120 MG/0.8 ML SYRINGE SC SCH (22:00)
[2024-07-18] VITALS (98 sets, daily range): BP systolic 71–176; BP diastolic 42–120; PULSE 45–125; RESP 10–22; TEMP 98.1–98.9; O2SAT 91–99
--- NOTE | 2024-07-18 00:33 | DVHSR ---
APPROVED REPORT EXAM: LIMITED Two-dimensional and M-mode echocardiogram with Doppler and color Doppler. Blood Pressure: 193/108 mmHg INDICATION Heart Block RISK FACTORS Height: 6', Weight: 257 DIMENSIONS LVDd4.7 (3.8-5.7cm)LA (2D)4.0 (1.9-4.0cm)Aortic Root (2.0-3.7cm) LVDs3.3 (2.5-4.0cm)LA (MM) (1.9-4.0cm)Aortic Cusp Exc (1.5-2.0cm) EF (%) 55.0 (55-70%)Rt. Atrium4.0 (1.9-4.0cm)Asc. Aorta cm IVSd1.3 (0.7-1.1cm)RV (D) (1.8-2.4cm) PWd1.2 (0.7-1.1cm) Mitral Valve MitralMitral Stenosis E wave0.80m/sMV Mean GR.4mmHg A wave1.50m/sMV Peak GR.9mmHg E/A ratio0.52D MVAcm2 DECEL [id number] 1/2 [id number] IVRTmsDop MVA1.73cm2 Aortic Valve Aortic ValveAortic Stenosis V10.80m/Hien Mean GR.9mmHg V22.00m/Hien Peak GR.17mmHg LVOT Diameter2.1 (1.8-2.4cm)Doppler AVA1.38cm2 Other Information Quality : Technically LimitedRhythm : Technically limited study due to body habitus. Conclusion MILD LVH AND MILD LV DIASTOLIC DYSFUNCTION LV EJECTION FRACTION IS 65% POSTERIOR MITRAL LEAFLET IS CALCIFIED NORMAL TV,PV AORTIC SCLEROSIS NO EFFUSION
[2024-07-18] MEDS: ATROPINE SULFATE 0.4 MG/1 ML VIAL ONE (04:02)
[2024-07-18 04:44] LABS: Chloride 103 mmol/L (98-107); Potassium 3.8 mmol/L (3.5-5.1); Sodium 136 mmol/L (136-145)
[2024-07-18 04:45] LABS: Anion Gap 9 (5-15); Carbon Dioxide 24 mmol/L (20-31)
[2024-07-18 04:46] LABS: Calcium 10.2 mg/dL (8.7-10.4)
[2024-07-18 04:50] LABS: Blood Urea Nitrogen 17 mg/dL (9-23)
[2024-07-18 04:51] LABS: Glucose 234 mg/dL (74-106)
--- NOTE | 2024-07-18 09:53 | DVHPN2 ---
Consult Progress Note Subjective Patient reports: No new complaints Review of Systems: CVS:Normal (Denies chest pain, palpitations), NEURO:Normal (Denies any other episodes of syncope.) Objective vital signs Vital Sign Date Time Temp Pulse Resp B/P (MAP) Pulse Ox O2 Delivery O2 Flow Rate FiO2 07/18/24 09:06 128/71 07/18/24 08:15 89 18 99 07/18/24 08:00 Nasal Cannula* 2 28 07/18/24 08:00 98.1 98.1 Total Intake and Output 07/17/24 07/17/24 07/18/24 15:00 23:00 07:00 Intake Total 384.28 ml 527.56 ml 436.04 ml Output Total 4400 ml 700 ml Balance 384.28 ml -3872.44 ml -263.96 ml medications Current Medications Medications Dose Ordered Sig/Jarrett Route Start Time Stop Time Status Last Admin Dose Admin Acetaminophen 650 mg Q6HP PRN PO 07/16/24 15:00 Acetaminophen/ Hydrocodone Bitart 1 tab Q4HP PRN PO 07/16/24 15:00 07/17/24 22:22 1 TAB Ondansetron HCl 4 mg Q4HP PRN IV 07/16/24 15:00 Nitroglycerin 0.4 mg Q5MINP PRN SL 07/16/24 15:00 Morphine Sulfate 2 mg Q30M PRN IV 07/16/24 15:00 Diagnostic Test (Pha) 1 strip ACHS 07/16/24 17:00 07/18/24 06:01 1 STRIP Insulin Human Regular HS SC 07/16/24 22:00 07/17/24 21:54 8 UNITS Insulin Human Regular AC SC 07/16/24 17:00 07/18/24 06:01 9 UNITS Dextrose 50 ml UD PRN IV 07/16/24 15:00 Atorvastatin Calcium 20 mg HS PO 07/16/24 22:00 07/17/24 21:47 20 MG Apixaban 5 mg BID PO 07/16/24 22:00 Hold 07/16/24 22:29 5 MG Aspirin 81 mg DAILY PO 07/17/24 10:00 Hydralazine HCl 10 mg Q6HP PRN IV 07/16/24 15:15 07/17/24 08:31 10 MG Enoxaparin Sodium 120 mg Q12HR SC 07/17/24 22:00 Hold Losartan Potassium 100 mg DAILY PO 07/17/24 08:45 07/18/24 09:06 100 MG Dopamine HCl/ Dextrose 250 ml @ 13.14 mls/ hr Q19H2M IV 07/17/24 08:45 07/18/24 04:19 17.52 MLS/HR Examination: LUNGS:Abnormal (On 2 L nasal cannula. Episodes of apnea noted.), CVS:Abnormal (Telemetry consistent with sinus rhythm at 64 beats per minute with occasional nonconducted QRS complex), NEURO:Normal (A&O x4) laboratory and microbiology Laboratory Tests 07/18/24 03:18 07/17/24 10:45 Test 07/18/24 03:18 Range/Units Serum Glucose 234 H 74-106 mg/dL Problem List/Assessment/Plan Problem List/Assessment/Plan * Syncope - Patient having heart pauses lasting up to 9 sec. Continue telemetry monitoring. * Heart Pause - multiple episodes on tele review. Avoid AV arlene blockers. Follow up ECHO with normal EF. Continue close monitoring in ICU. Continue Dopamine drip. Consent for Permanent pacemaker. Plan for Friday07/19/2024 * Paroxysmal Atrial Fibrillation - apparently patient received 1 dose of Eliquis the night of 07/16/2024. Anticoagulation held. * Hypertensive Urgency - Avoid AV arlene blockers. Blood pressure better controlled. Continue losartan 50 mg daily. IV prns. Case Discussed with Dr Boyd. Continue monitoring in ICU. Continue on dopamine drip for heart rate. As patient apparently received dose of Eliquis 07/16/2019 5:00 p.m. plan for pacemaker implantation Friday07/19/2024. Hold all anticoagulation therapy. Critical care, time spent: 41 minutes This medical document was created using an electronic medical record system with voice recognition software and computerized dictation system. Although this document has been carefully reviewed, there might still be some phonetic and typographical errors. Occasional wrong-word or ``sound-alike substitutions may have occurred due to the inherent limitations of voice recognition software. These areas are purely typographical due to imperfections of the software programs and do not reflect any compromise in the patient's medical care. Please read the chart carefully and recognize, using context, where these substitutions have occurred. Thank you for allowing me to participate in the management of this patient. The treatment plan was discussed with and agreed upon by patient/family including requesting consultants and ordering of imaging/procedures. Plan discussed with: Patient Date of Service: Jul 18, 2024 Billing Provider: ELAINE JOHN Common Visit Codes: [id number] INP/OBS CARE(HIGH), [id number] CARE 30-74 MIN ELAINE JOHN Jul 18, 2024 09:53
[2024-07-18] MEDS: MAGNESIUM SULFATE 1GM/100ML 100 ML IV SCH (12:23)
[2024-07-18] MEDS: ATROPINE SULF 1 MG/10ml SYR ONE (13:54)
--- NOTE | 2024-07-18 19:25 | DVHPN2 ---
Subjective in bed resting Changes from previous H/P or p: No Changes Eyes: No Pain, No Vision change, No Conjunctivae inflammation, No Eyelid inflammation, No Other, No Redness ENT: No Ear pain, No Ear discharge, No Nose pain, No Nose discharge, No Nose congestion, No Mouth pain, No Mouth swelling, No Throat pain, No Throat swelling, No Other Cardiovascular: No Chest Pain, No Palpitations, No Orthopnea, No Paroxysmal Noc. Dyspnea, No Edema, No Lt Headedness, No Other Respiratory: No Cough, No Dry, No Shortness of breath, No SOB with excertion, No Wheezing, No Hemoptysis, No Pleuritic Pain, No Sputum, No Other Gastrointestinal: No Nausea, No Vomiting, No Abdominal Pain, No Diarrhea, No Constipation, No Melena, No Hematochezia, No Other Genitourinary: No Dysuria, No Frequency, No Incontinence, No Hematuria, No Retention, No Other Musculoskeletal: No other, No neck pain, No shoulder pain, No arm pain, No back pain, No hand pain, No leg pain, No foot pain Skin: No Rash, No Lesions, No Jaundice, No Bruising, No Other Objective Vitals Vital Signs Date Time Temp Pulse Resp B/P (MAP) Pulse Ox O2 Delivery O2 Flow Rate FiO2 07/18/24 18:15 52 18 107/45 (65) 97 07/18/24 18:00 Nasal Cannula* 2 28 07/18/24 16:00 98.4 98.4 Intake/Output Intake and Output 07/18/24 05:00 Intake Total 1238.88 ml Output Total 5100 ml Balance -3861.12 ml Intake Oral 758 ml IV Total 480.88 ml Output Urine Total 5100 ml General Appearance: Alert, Oriented X3 Lungs: Clear to auscultation Medications Current Medications Medications Dose Ordered Sig/Jarrett Route Start Time Stop Time Status Last Admin Dose Admin Acetaminophen 650 mg Q6HP PRN PO 07/16/24 15:00 Acetaminophen/ Hydrocodone Bitart 1 tab Q4HP PRN PO 07/16/24 15:00 07/18/24 10:23 1 TAB Ondansetron HCl 4 mg Q4HP PRN IV 07/16/24 15:00 Nitroglycerin 0.4 mg Q5MINP PRN SL 07/16/24 15:00 Morphine Sulfate 2 mg Q30M PRN IV 07/16/24 15:00 Diagnostic Test (Pha) 1 strip ACHS 07/16/24 17:00 07/18/24 16:49 1 STRIP Insulin Human Regular HS SC 07/16/24 22:00 07/17/24 21:54 8 UNITS Insulin Human Regular AC SC 07/16/24 17:00 07/18/24 17:06 9 UNITS Dextrose 50 ml UD PRN IV 07/16/24 15:00 Atorvastatin Calcium 20 mg HS PO 07/16/24 22:00 07/17/24 21:47 20 MG Apixaban 5 mg BID PO 07/16/24 22:00 Hold 07/16/24 22:29 5 MG Aspirin 81 mg DAILY PO 07/17/24 10:00 Hydralazine HCl 10 mg Q6HP PRN IV 07/16/24 15:15 07/18/24 10:54 10 MG Enoxaparin Sodium 120 mg Q12HR SC 07/17/24 22:00 Hold Dopamine HCl/ Dextrose 250 ml @ 13.14 mls/ hr Q19H2M IV 07/17/24 08:45 07/18/24 12:25 26.28 MLS/HR Losartan Potassium 50 mg DAILY PO 07/19/24 10:00 Laboratory Results Laboratory Tests 07/17/24 10:45 07/18/24 03:18 Chemistry Test 07/18/24 03:18 Calcium Level 10.2 mg/dL (8.7-10.4) Magnesium Level 1.8 mg/dL (1.6-2.6) Urinalysis Test 07/16/24 17:12 Urine Color Yellow (Yellow) Urine Clarity Clear (Clear) Urine pH 6.5 (5.0-9.0) Urine Specific [place] 1.026 (1.001-1.035) Urine Protein 1+ (Negative) H Urine Ketones Negative (Negative) Urine Blood Negative /uL (Negative) Urine Nitrite Negative (Negative) Urine Bilirubin Negative (Negative) Urine Urobilinogen Normal mg/dL (Negative) Urine Leukocyte Esterase Negative /uL (Negative) Urine RBC 1 /hpf (0 - 3) Urine Microscopic WBC < 1 /HPF (0-3) Urine Squamous Epithelial Cells Few /hpf (<5) Urine Bacteria None seen /hpf (None Seen) Urine Mucus Few (None Seen) Urine Glucose Trace mg/dL (Normal) Microbiology Microbiology Date/Time Source Procedure Growth Status 07/17/24 15:56 Nose MRSA Screen - Final Complete Assessment/Plan Assessment/Plan Syncope Admit To Telemetry bradycardic and hypotensive>transfer to ICU for dopamine drip As per cardiology plan for pacemaker History of AFib stopped taking Eliquis 2 weeks ago Resume Eliquis EF 50% 12/2023 Consult cardiology Hypertensive urgency Resume home medications Hydralazine p.r.n. Diabetes mellitus type 2 Accu-Cheks dericcJessica HS GI/VTE PPX/nutrition Protonix Consistent carb diet Plan discussed with: Patient My Orders Orders - MARY MENDENHALL MD Procedure Category Date Status Time * Assistant General Manager CONS 07/18/24 Transmitted Consult Date of Service: Jul 18, 2024 Billing Provider: MARY MENDENHALL MD Common Visit Codes: [id number] INP/OBS CARE(HIGH) MARY MENDENHALL MD Jul 18, 2024 19:25
[2024-07-18] MEDS: ISOPROTERENOL HCL INJECTION 1 MG in D5W 5% 250 ML IV SCH ×2 (19:30→19:45)
--- NOTE | 2024-07-18 22:09 | DVHPN2 ---
Consult Progress Note Subjective Patient reports: No new complaints Review of Systems: NEURO:Normal Other Systems: Patient was seen and evaluated in follow up in the ICU. Patient is on 2 LPM NC. She has episodes of apnea. Telemetry consistent with sinus rhythm at 64 beats per minute with occasional nonconducted QRS complex. GLUC 338. Objective vital signs Vital Sign Date Time Temp Pulse Resp B/P (MAP) Pulse Ox O2 Delivery O2 Flow Rate FiO2 07/18/24 15:30 106 19 125/69 (87) 95 07/18/24 14:00 Nasal Cannula* 2 28 07/18/24 12:00 98.4 98.4 Total Intake and Output 07/17/24 07/17/24 07/18/24 15:00 23:00 07:00 Intake Total 384.28 ml 527.56 ml 436.04 ml Output Total 4400 ml 700 ml Balance 384.28 ml -3872.44 ml -263.96 ml medications Current Medications Medications Dose Ordered Sig/Jarrett Route Start Time Stop Time Status Last Admin Dose Admin Acetaminophen 650 mg Q6HP PRN PO 07/16/24 15:00 Acetaminophen/ Hydrocodone Bitart 1 tab Q4HP PRN PO 07/16/24 15:00 07/18/24 10:23 1 TAB Ondansetron HCl 4 mg Q4HP PRN IV 07/16/24 15:00 Nitroglycerin 0.4 mg Q5MINP PRN SL 07/16/24 15:00 Morphine Sulfate 2 mg Q30M PRN IV 07/16/24 15:00 Diagnostic Test (Pha) 1 strip ACHS 07/16/24 17:00 07/18/24 11:30 1 STRIP Insulin Human Regular HS SC 07/16/24 22:00 07/17/24 21:54 8 UNITS Insulin Human Regular AC SC 07/16/24 17:00 07/18/24 12:23 12 UNITS Dextrose 50 ml UD PRN IV 07/16/24 15:00 Atorvastatin Calcium 20 mg HS PO 07/16/24 22:00 07/17/24 21:47 20 MG Apixaban 5 mg BID PO 07/16/24 22:00 Hold 07/16/24 22:29 5 MG Aspirin 81 mg DAILY PO 07/17/24 10:00 Hydralazine HCl 10 mg Q6HP PRN IV 2/7/25 15:15 07/18/24 10:54 10 MG Enoxaparin Sodium 120 mg Q12HR SC 07/17/24 22:00 Hold Dopamine HCl/ Dextrose 250 ml @ 13.14 mls/ hr Q19H2M IV 07/17/24 08:45 07/18/24 12:25 26.28 MLS/HR Losartan Potassium 50 mg DAILY PO 07/19/24 10:00 Examination: GENERAL:Normal, HEENT:Normal, NECK:Normal, LUNGS:Abnormal (decreased breath sounds), ABDOMEN:Normal, SKIN:Normal, NEURO:Normal laboratory and microbiology Laboratory Tests 07/18/24 03:18 07/17/24 10:45 Test 07/18/24 03:18 Range/Units Serum Glucose 234 H 74-106 mg/dL Problem List/Assessment/Plan Problem List/Assessment/Plan Syncope. Heart pause. Paroxysmal atrial fibrillation. Hypertensive urgency. Continued all current supportive medical care. Patient has been seen by Oscar Pang NP on my behalf, him and I discussed the plan with the patient. Continue on dopamine drip for heart rate. As patient apparently received dose of Eliquis 07/16/2019 5:00 p.m. plan for pacemaker implantation Friday07/19/2024. d all anticoagulation therapy. Continue telemetry monitoring. Avoid AV arlene blockers. Echocardiogram. On FD Lovenox while in hospital, hold for now in setting of possible PPM. Resume eliquis upon discharge. Continue losartan 100 mg daily. Additional plan as per the hospital course. Plan discussed with: Patient Date of Service: Jul 18, 2024 Billing Provider: NIKOLE CASEY MD Cardiology Common Codes: [id number] HOSP CARE(High, [id number] CARE 30-74 MIN NIKOLE CASEY MD Jul 18, 2024 16:12
[2024-07-19] VITALS (73 sets, daily range): BP systolic 81–158; BP diastolic 33–79; PULSE 49–108; RESP 10–22; TEMP 98.1–98.7; O2SAT 91–100
[2024-07-19 04:39] LABS: Basophils # (auto) 0 10 ^3/uL (0-0.2); Basophils % (auto) 0.4 % (0.0-2.0); Eosinophils # (auto) 0.1 10 ^3/uL (0-0.8); Eosinophils % (auto) 0.7 % (0.0-7.0); Hematocrit 45.9 % (41.0-53.0); Lymphocytes # (auto) 1.6 10 ^3/uL (0.4-5.4); Lymphocytes % (auto) 15.3 % (10.0-50.0); Mean Corpuscular Hemoglobin 29.8 pg (28.0-32.0); Mean Corpuscular Hgb Conc. 34.8 g/dL (32.0-36.0); Mean Corpuscular Volume 85.5 fL (80.0-100.0); Monocytes # (auto) 1.1 10 ^3/uL (0-1.3); Monocytes % (auto) 10.6 % (0.0-12.0); Neutrophils # (auto) 7.8 10 ^3/uL (1.6-8.6); Platelet Count (auto) 235 10^3/uL (140-450); Red Blood Cells 5.37 10^6/uL (4.5-5.90); Red Cell Distribution Width 13.6 % (11.8-14.3); White Blood Cell 10.7 10^3/uL (4.4-10.8)
[2024-07-19 04:52] LABS: Chloride 99 mmol/L (98-107); Potassium 4.4 mmol/L (3.5-5.1)
[2024-07-19 04:53] LABS: Anion Gap 8 (5-15); Carbon Dioxide 25 mmol/L (20-31); INR 1.06 (0.9-1.15); Partial Thromboplastin Time 26.8 SEC (24.5-34.5); Prothrombin Time 11.2 sec (9.3-11.8)
[2024-07-19 04:54] LABS: Calcium 10.4 mg/dL (8.7-10.4)
[2024-07-19 04:59] LABS: BUN/Creatinine Ratio 15.2 (10.0-20.0); Blood Urea Nitrogen 20 mg/dL (9-23); Magnesium 1.8 mg/dL (1.6-2.6)
[2024-07-19 05:01] LABS: Phosphorus 3.9 mg/dL (2.4-5.1)
[2024-07-19 05:04] LABS: Glucose 267 mg/dL (74-106); Sodium 132 mmol/L (136-145)
[2024-07-19] MEDS: VANCOMYCIN HCL 1000 MG VL ONE ×2 (08:49→09:50)
[2024-07-19] MEDS: VANCOMYCIN 1GM/250ML KIT 250 ML IV ONE (08:49)
[2024-07-19] MEDS: LIDOCAINE 2%HCL (LOCAL ANESTH.) INJ 20ML MDV ONE (08:49)
[2024-07-19] MEDS: fentaNYL CITRATE 100 MCG/2 ML VL ONE (08:49)
[2024-07-19] MEDS: MIDAZOLAM HCL 2MG/2ML 2ml VIAL (1mg/ml) ONE (08:49)
[2024-07-19] MEDS: HEPARIN IN NS 1000Units/500mL 0 ML ONE (08:54)
[2024-07-19] MEDS: IODIXANOL 320MG/ML 100ML BTL IV ONE (09:01)
[2024-07-19] MEDS: LOSARTAN POTASSIUM 50 MG TAB PO SCH (10:00)
--- NOTE | 2024-07-19 11:04 | DVH ---
CHEST RADIOGRAPH Indication: S/P PACEMAKER Technique: Single frontal view of the chest was obtained COMPARISON: None FINDINGS: Lines and Tubes: Left chest wall pacemaker Lungs: Clear Pleura: No effusion. No pneumothorax. Cardiomediastinal contours: Unremarkable Bones: Unremarkable IMPRESSION: No acute disease.
[2024-07-19] MEDS: SODIUM CHLORIDE 0.9% 1,000 ML IV ONE (11:15)
--- NOTE | 2024-07-19 11:30 | DVHOP ---
DATE OF SURGERY: 07/19/2024 TECHNIQUE PERFORMED: * Emergency case. * Left subclavian venography. * Fluoroscopic guidance and supervision and management of conscious sedation. * Implantation of a dual chamber permanent pacemaker from the left subclavian region (Biotronik active lead and MRI proof). * Interrogation of device. COMPLICATIONS: None. ASSISTANTS: Assisted by our staff over here is Faraz, other quality control assistant is Heaven Isidro. INDICATIONS: The patient has complete heart block, the patient had pause episode for several seconds too many times, symptomatic. DESCRIPTION OF PROCEDURE: Risks and benefits were discussed in a standard manner. The patient was brought to our lab. The left subclavian area was thoroughly cleaned with soap and Betadine. Lidocaine was given. Left subclavian angiography was done and vein was accessed with help under fluoroscopy and subsequently horizontally. Subsequently, we put a 9-[place] sheath. We also put a ventricular lead screwed in very well. Subsequently, we put a 7-[place] sheath, atrial lead was screwed in very well. Both atrial and ventricular lead both have been sutured with the help of Ethibond. Pulse generator applied and screwed in very well put under subpectoral groove. The whole area was cleaned with antibiotic solution. Vancomycin powder applied. Subsequently, with the help of a 2-0 Vicryl followed by 3-0, followed by 4-0 Monocryl, the whole wound had been very well, sutured and the patient did well. Dermabond applied, tincture of benzoin, Steri-Strip, Telfa, Op-Site applied. The patient's P-wave is 2.9, capture 1.0, impedance 545. Right ventricular capture 0.6, R-wave is 8.3, impedance is 1050. Successful procedure without any complication. PLAN OF ACTION: Advised the patient to have a chest x-ray and then antibiotic for doxycycline for 10 days and see me back in the office after three weeks and I will remove the dressing. Family is informed. Jorje Boyd MD MP/TRI/KYLE TID: [id number] RECEIPT: [id number] [facility]
--- NOTE | 2024-07-19 11:47 | DVHPNRES ---
Progress Note Date Seen: Jul 19, 2024 Resident Creating Document: MEÑO MCNEIL RESIDENT Has the PT tested + for MRSA If YES, has PT been informed?: No Medical Necessity Reason Pt with a Central, PICC or Fol: No Subjective Review of Systems Post operative patient's has mild chest pain, low blood pressure, holding antihypertensives and patient on Levophed as needed. Discussed with Dr. Boyd primary personal injury litigation paralegal on board. Objective vital signs Vital Sign Date Time Temp Pulse Resp B/P (MAP) Pulse Ox O2 Delivery O2 Flow Rate FiO2 07/19/24 08:36 119/69 07/19/24 08:30 90 15 97 07/19/24 08:00 Nasal Cannula* 2 28 07/19/24 07:45 98.2 98.2 Total Intake and Output 07/18/24 07/18/24 07/19/24 15:00 23:00 07:00 Intake Total 1143.38 ml 1246.98 ml 481 ml Output Total 900 ml 300 ml Balance 1143.38 ml 346.98 ml 181 ml medications Current Medications Medications Dose Ordered Sig/Jarrett Route Start Time Stop Time Status Last Admin Dose Admin Acetaminophen 650 mg Q6HP PRN PO 07/16/24 15:00 Acetaminophen/ Hydrocodone Bitart 1 tab Q4HP PRN PO 07/16/24 15:00 07/18/24 20:27 1 TAB Ondansetron HCl 4 mg Q4HP PRN IV 07/16/24 15:00 Nitroglycerin 0.4 mg Q5MINP PRN SL 07/16/24 15:00 Morphine Sulfate 2 mg Q30M PRN IV 07/16/24 15:00 Diagnostic Test (Pha) 1 strip ACHS 07/16/24 17:00 07/19/24 06:20 1 STRIP Insulin Human Regular HS SC 07/16/24 22:00 07/18/24 22:00 4 UNITS Insulin Human Regular AC SC 07/16/24 17:00 07/19/24 06:27 9 UNITS Dextrose 50 ml UD PRN IV 07/16/24 15:00 Atorvastatin Calcium 20 mg HS PO 07/16/24 22:00 07/18/24 22:11 20 MG Apixaban 5 mg BID PO 07/16/24 22:00 Hold 07/16/24 22:29 5 MG Aspirin 81 mg DAILY PO 07/17/24 10:00 Hydralazine HCl 10 mg Q6HP PRN IV 07/16/24 15:15 07/19/24 03:54 10 MG Enoxaparin Sodium 120 mg Q12HR SC 07/17/24 22:00 Hold Losartan Potassium 50 mg DAILY PO 07/19/24 10:00 Isoproterenol HCl 1 mg/Dextrose 255 ml @ 15.3 mls/hr [id number] IV 07/18/24 19:45 07/18/24 19:45 15.3 MLS/HR Vancomycin HCl 200 ml @ 200 mls/hr Q12HR IV 07/19/24 22:00 07/20/24 10:59 UNV Examination: GENERAL:Normal (Mild distress due to local post surgical pain.), HEENT:Normal, NECK:Normal, LUNGS:Normal (Breathing comfortably in the room air, saturation over 94% without oxygen.), CVS:Normal (New pacemaker on left upper chest post surgical place clean, no signs of imaging complications. Mild tenderness appropriate.), ABDOMEN:Normal, MSK:Normal, SKIN:Normal, NEURO:Normal, :Normal laboratory and microbiology Laboratory Tests 07/19/24 03:56 Test 07/19/24 03:56 Range/Units Serum Glucose 267 H 74-106 mg/dL Microbiology Date/Time Source Procedure Growth Status 07/17/24 15:56 Nose MRSA Screen - Final Complete Labs and/or images reviewed: Labs reviewed by me, Image(s) reviewed by me Problem List/Assessment/Plan Problem List/Assessment/Plan ICU Course: A 79-year-old male with a history of angina, prostate cancer status post TURP, diabetes, hypertension, kidney stones, myocardial infarction, atrial fibrillation, and peripheral artery disease presented with blurred vision, dizziness, and syncope for one week. He reported hot flashes and dizziness but did not lose consciousness. He had been off Eliquis for two weeks due to cost and missed some medications. He was admitted to telemetry, found to be bradycardic with heart pauses up to 9 seconds, and hypotensive, leading to ICU transfer for a dopamine drip which was later accompanied with isoproterenol. Labs were unremarkable, and TSH results were pending, patient received dual- chamber pacemaker earlier this morning. Hospitalization day: 3 A. Neurolgy: #Syncope: Likely cardiogenic, brief loss of consciousness and fall without head trauma` patient is back to consciousness AAO x4 B. Cardiology: # sick sinus syndrome: Multiple pauses maximum pause several times initially in the hospital, patient was bradycardic, patient having heart pauses lasting up to 9 sec and hypotensive>transfer to ICU for dopamine drip (a1 b1 and d) and isoproterenol b1/b2 equally affect. # Syncope likely sick sinus syndrome, status post pacemaker insertion: by Dr. Boyd on 07/19/2024, no immediate complication with pneumothorax or tamponade. Repeat chest x-ray tomorrow morning. # postoperative care for device:Admit To Telemetry , AFFiRiS device check pending, Patient will be discharged home with follow up with Cardiology with 5 days of oral doxycycline. If maybe we will less than 65 as needed Levophed titratable. postoperative pain control with 1 time IV morphine and [place] 5/325 q.4 hours p.r.n.. #Hypertensive urgency: At admission patient had hypertensive urgency initially was 100 mg of losartan change to 50 mg of losartan, post device implant blood pressure on the lower side, hold the antihypertensives. #History of paroxysmal AFib: Patient was not using Eliquis for past 2 weeks due to monetary issues.Paroxysmal Atrial Fibrillation - On FD lovenox while in hospital. Hold for know in setting of possible PPM. Continue heparin with close eye on H and H and platelets. At discharge possible to discharge the patient with warfarin with target INR of 2-3 # medical noncompliance with Eliquis: # mild left ventricular diastolic dysfunction: EF 50% 12/2023 , unchanged # calcified posterior mitral leaflet # aortic sclerosis without hemodynamic compromise # CAD with previous history of DC: Continue aspirin and atorvastatin # PAD/ peripheral arterial disease: Bilateral lower leg pulsation and warmth maintain, appropriate vasculature and perfusion. # prolonged QTC of 510, keep the patient on telemetry, safe to continue doxycycline C. Respiratory: # Acute hypoxic respiratory failure, improved: Initially patient was on minimal oxygen via nasal cannula, we are able to wean back to room air with maintenance saturation above 94%. # known obstructive sleep apnea: patient uses CPAP at night, Continue in- hospital. D.Gastrointenstinal: Denies any acute gastrointestinal issues # mild bilirubinemia: Total bilirubin 1.4, check daily CMP, abdominal examination unremarkable E. Geniotourinary: denies any acute change or any issues passing urine appropriately. # History of renal stones, asymptomatic presumably. # history of prostate cancer status post TURP F. Infectious Disease: # Perioperative care: During implantation of dual-chamber pacemaker antibiotic pellets, -MRSA negative, doxycycline 14 days G. Hematology & Oncology: # postoperative: Please check for H&H and rule out local hematoma. We will hold anticoagulation. H. Nephrology: #TWYLA due to VM in, 1.32 versus baseline of 1.06 avoid nephrotoxins, judicious use of fluid # Mild hyponatremia: Improving I. Endocrine: # Moderately controlled Diabetes mellitus type 2 , HbA1c 7.6: At home patient is on oral diabetic, in-hospital on SSI continue target BG 140-180, postprandial. Consistent carb diet Accu-Cheks a.c. HS J. MSK: # bilateral thrombus in the cephalic veins: Noted on bilateral upper extremity ultrasound, noted bilateral redness in the upper arm , vascular function intact. K. Prophylaxis: PPI: not needed DVT: SCDs L. Lines & Drains (with insertion date): IV: Peripheral line right forearm. Other left and right arm IVs are infiltrated, not functional. M. Drips: Off N. Disposition: Downgrade to telemetry Floor . Patient lives at home with and family. On discharge we will go back needs help with the Eliquis as it is not covered by his insurance/unaffordable. The plan was discussed with the ICU attending Dr. Ca. The patient care consists of total 81 minutes of critical care time excluding the procedures. Dictated by Meño Mcneil MD with 3M MModal Fluency. Plan discussed with: Patient, Other (Primary team.) Date of Service: Jul 19, 2024 Billing Provider: JUAN ANTONIO CA MD Common Visit Codes: [id number] CARE 30-74 MIN, [id number] CARE-EACH +30MIN MEÑO MCNEIL Jul 19, 2024 11:47 JUAN ANTONIO CA MD Jul 20, 2024 15:23
[2024-07-19] MEDS: NOREPINEPHRINE 8 MG/250ML KIT 250 ML IV SCH (12:02)
[2024-07-19] MEDS: OPTISON 3ml Vial for INJ IV ONE (12:08)
[2024-07-19] MEDS: NOREPINEPHRINE 8 MG/250ML KIT 250 ML IV ONE (12:18)
[2024-07-19] MEDS: MORPHINE SULFATE INJ 2 MG/ml SYRG IV ONE (12:41)
--- NOTE | 2024-07-19 13:34 | DVH ---
Bilateral Upper Extremity Venous Duplex Clinical History: IV infiltration Comparison: US BILAT LOWER DVT on DOS: 02/10/24, US BILAT LOWER DVT on DOS: 12/15/23, US BILAT LOWER DVT on DOS: 02/18/23 Findings: Duplex Doppler evaluation of the venous systems of the right and left lower neck and upper extremitie s including color Doppler and spectral/pulsed waveform analysis was performed. RIGHT SIDE: The internal jugular vein demonstrates appropriate compressibility and waveform variability . The subclavian vein is patent on color Doppler evaluation without intraluminal thrombus and demonstra lazaro waveform variability . The visualized portion of the brachiocephalic vein is patent on color Doppler evaluation without intr aluminal thrombus and demonstrates waveform variability . The axillary vein demonstrates appropriate compressibility and waveform variability . The brachial veins demonstrate appropriate compressibility and patency on Doppler evaluation. The basilic vein demonstrates appropriate compressibility and patency on Doppler evaluation. LEFT SIDE: The internal jugular vein demonstrates appropriate compressibility and waveform variability . The subclavian vein is patent on color Doppler evaluation without intraluminal thrombus and demonstra lazaro waveform variability . The visualized portion of the brachiocephalic vein is patent on color Doppler evaluation without intr aluminal thrombus and demonstrates waveform variability . The axillary vein demonstrates appropriate compressibility and waveform variability . The brachial veins demonstrate appropriate compressibility and patency on Doppler evaluation. The basilic vein demonstrates appropriate compressibility and patency on Doppler evaluation. Bilateral cephalic veins demonstrate thrombus. Impression: bilateral thrombus in the cephalic veins. If clinical concern/symptoms persist or worsen, short-interval follow-up study is suggested.
--- NOTE | 2024-07-19 14:20 | ECG ---
[facility] Test Date: 2024-07-18 Test Time: 21:18:20 Pat Name: STEPHANIE LAGUAN Department: Room: [address] [place] [address] A Gender: M Bilingual Medical Assistant: : 1945 Requested By: NIKOLE CASEY Order Number: [id number] Reading MD: Ortega Aguilar Measurements Intervals [place] Rate: 101 P: 57 AR: 194 QRS: -32 QRSD: 140 T: 147 QT: 394 QTc: 510 Interpretive Statements Sinus tachycardia Left axis deviation Left bundle branch block Electronically Signed On 07-22-2024 9:26:36 PST by Ortega Aguilar Please click the below link to view image of tracing.
--- NOTE | 2024-07-19 14:21 | ECG ---
[facility] Test Date: 2024-07-19 Test Time: 11:13:43 Pat Name: STEPHANIE LAGUNA Department: Room: [address] [place] [address] A Gender: M Bending Machine Operator: NICCI : 1945 Requested By: NIKOLE CASEY Order Number: [id number] Reading MD: Ortega Aguilar Measurements Intervals [place] Rate: 100 P: 48 FL: 124 QRS: -75 QRSD: 180 T: 92 QT: 450 QTc: 580 Interpretive Statements Electronic ventricular pacemaker Electronically Signed On 07-22-2024 9:27:04 PST by Ortega Aguilar Please click the below link to view image of tracing.
[2024-07-19] MEDS: VANCOMYCIN 1GM/250ML KIT 200 ML IV SCH (21:19)
[2024-07-19] MEDS: DOXYCYCLINE 100 MG TAB/CAP PO SCH (21:19)
--- NOTE | 2024-07-19 22:16 | DVHPN2 ---
Progress Note - Dictate Date Seen: Jul 19, 2024 Medical Necessity Reason Pt with a Central, PICC or Fol: No Subjective Patient was seen and evaluated in follow up in the ICU. Patient underwent emergency left subclavian venography, implantation of a dual chamber permanent pacemaker from the left subclavian region (Biotronik active lead and MRI proof). Successful procedure without any complication. Advised the patient to have a chest x-ray and then antibiotic for doxycycline for 10 days and see me back in the office after three weeks and I will remove the dressing. Family is informed. Tag Machine Operator 1.32. Echocardiogram is pending. BP improved. vital signs Vital Sign Date Time Temp Pulse Resp B/P (MAP) Pulse Ox O2 Delivery O2 Flow Rate FiO2 07/19/24 18:30 99 17 99/51 (67) 97 07/19/24 18:00 Room Air* 0 21 07/19/24 15:30 98.2 98.2 Total Intake and Output 07/18/24 07/18/24 07/19/24 15:00 23:00 07:00 Intake Total 1143.38 ml 1246.98 ml 481 ml Output Total 900 ml 300 ml Balance 1143.38 ml 346.98 ml 181 ml medications Current Medications Medications Dose Ordered Sig/Jarrett Route Start Time Stop Time Status Last Admin Dose Admin Acetaminophen 650 mg Q6HP PRN PO 07/16/24 15:00 Acetaminophen/ Hydrocodone Bitart 1 tab Q4HP PRN PO 07/16/24 15:00 07/19/24 20:22 1 TAB Ondansetron HCl 4 mg Q4HP PRN IV 07/16/24 15:00 Nitroglycerin 0.4 mg Q5MINP PRN SL 07/16/24 15:00 Morphine Sulfate 2 mg Q30M PRN IV 07/16/24 15:00 Diagnostic Test (Pha) 1 strip ACHS 07/16/24 17:00 07/19/24 21:19 1 STRIP Insulin Human Regular HS SC 07/16/24 22:00 07/19/24 21:45 6 UNITS Insulin Human Regular AC SC 07/16/24 17:00 07/19/24 17:35 3 UNITS Dextrose 50 ml UD PRN IV 07/16/24 15:00 Atorvastatin Calcium 20 mg HS PO 07/16/24 22:00 07/19/24 21:19 20 MG Aspirin 81 mg DAILY PO 07/17/24 10:00 07/19/24 12:42 81 MG Hydralazine HCl 10 mg Q6HP PRN IV 07/16/24 15:15 07/19/24 03:54 10 MG Vancomycin HCl 200 ml @ 200 mls/hr Q12HR IV 07/19/24 22:00 07/20/24 10:59 07/19/24 21:19 200 MLS/HR Doxycycline Monohydrate 100 mg Q12HR PO 07/19/24 22:00 08/02/24 21:59 07/19/24 21:19 100 MG objective GENERAL: Awake, alert, oriented. LUNGS: Decreased breath sounds. CARDIOVASCULAR: Heart sounds are good. ABDOMEN: Soft. laboratory and microbiology Laboratory Tests 07/19/24 03:56 Test 07/19/24 03:56 Range/Units Serum Glucose 267 H 74-106 mg/dL Problem List Syncope. Heart pause. Paroxysmal atrial fibrillation. Hypertensive urgency. Assessment/Plan Continued all current supportive medical care. Morphine and [place] for pain management. Aspirin, Lipitor. Antibiotics with Doxycycline. IV Hydralazine for SBP > 150. Nitro SL. Additional plan as per the hospital course. Critical care time of 90 minutes provided to include time spent evaluation of patient at bedside, when appropriate patient/family education for diagnosis, treatment plan, review of pertinent medical information and discussion of care with specialty providers and PCP. Plan discussed with: Patient NIKOLE CASEY MD Jul 19, 2024 22:16
[2024-07-20] VITALS (71 sets, daily range): BP systolic 94–154; BP diastolic 48–85; PULSE 70–131; RESP 9–97; TEMP 98.2–98.4; O2SAT 92–99
--- NOTE | 2024-07-20 04:13 | DVH ---
CHEST RADIOGRAPH Indication: reevaluate lung parenchyma Technique: Single frontal view of the chest was obtained Comparison: XY CHEST PORTABLE on DOS: 07/19/24 FINDINGS: Lines and Tubes: Dual-chamber pacemaker with right atrial and ventricular leads. Lungs: No focal consolidation. Pleura: No effusion. No pneumothorax. Cardiomediastinal contours: Unremarkable Bones: No acute osseous abnormality. IMPRESSION: 1. No acute cardiopulmonary disease.
[2024-07-20 04:37] LABS: Basophils # (auto) 0 10 ^3/uL (0-0.2); Basophils % (auto) 0.6 % (0.0-2.0); Eosinophils # (auto) 0.1 10 ^3/uL (0-0.8); Hematocrit 39.6 % (41.0-53.0); Hemoglobin 13.4 g/dL (13.5-17.5); Lymphocytes # (auto) 1.4 10 ^3/uL (0.4-5.4); Lymphocytes % (auto) 18.5 % (10.0-50.0); Mean Corpuscular Hemoglobin 29.3 pg (28.0-32.0); Mean Corpuscular Hgb Conc. 33.8 g/dL (32.0-36.0); Mean Corpuscular Volume 86.5 fL (80.0-100.0); Monocytes # (auto) 0.8 10 ^3/uL (0-1.3); Monocytes % (auto) 11.2 % (0.0-12.0); Neutrophils % (auto) 67.7 % (37.0-80.0); Nucleated Red Blood Cells % 0.1 %; Platelet Count (auto) 178 10^3/uL (140-450); Red Blood Cells 4.58 10^6/uL (4.5-5.90); Red Cell Distribution Width 13.7 % (11.8-14.3); White Blood Cell 7.4 10^3/uL (4.4-10.8)
[2024-07-20 04:57] LABS: Alanine Aminotransferase 16 U/L (7-40); Alkaline Phosphatase 52 U/L (46-116); Anion Gap 8 (5-15); Aspartate Aminotransferase 16 U/L (13-40); BUN/Creatinine Ratio 18.6 (10.0-20.0); Blood Urea Nitrogen 18 mg/dL (9-23); Calcium 9.5 mg/dL (8.7-10.4); Carbon Dioxide 23 mmol/L (20-31); Chloride 103 mmol/L (98-107); Potassium 4.1 mmol/L (3.5-5.1)
[2024-07-20 04:58] LABS: Total Protein 6.1 g/dL (5.7-8.2)
[2024-07-20 05:09] LABS: Bilirubin, Total 1.5 mg/dL (0.2-1.0); Glucose 179 mg/dL (74-106); Sodium 134 mmol/L (136-145)
--- NOTE | 2024-07-20 14:22 | DVH ---
EXAM: XY CHEST PORTABLE HISTORY: CHECK PACEMAKER LEADS COMPARISON: Chest x-ray from earlier same day. TECHNIQUE: Portable AP view of the chest was performed. FINDINGS: Left chest pacemaker is re-identified. No pneumothorax, consolidative infiltrates, or pulmonary edema . The heart is not enlarged. There are postoperative changes of ACDF. IMPRESSION: Left chest pacemaker re-identified. No acute intrathoracic process is otherwise identified here.
[2024-07-20] MEDS: WARFARIN SODIUM 5 MG TAB PO ONE (17:15)
--- NOTE | 2024-07-20 17:24 | DVHPN2 ---
Progress Note - Dictate Date Seen: Jul 20, 2024 Has the PT tested + for MRSA If YES, has PT been informed?: No Medical Necessity Reason Pt with a Central, PICC or Fol: No Subjective Patient was seen and evaluated in follow up in the ICU. No overnight events. BS in the 300s. T bili 1.5. Chest x-ray shows left chest pacemaker re-identified. No acute intrathoracic process is otherwise identified here. vital signs Vital Sign Date Time Temp Pulse Resp B/P (MAP) Pulse Ox O2 Delivery O2 Flow Rate FiO2 07/20/24 16:30 98 18 93 21 07/20/24 14:30 07/20/24 12:00 98.3 98.3 07/20/24 08:00 Room Air* 0 Total Intake and Output 07/19/24 07/19/24 07/20/24 15:00 23:00 07:00 Intake Total 72.68 ml 1240 ml 350 ml Output Total 400 ml 325 ml Balance 72.68 ml 840 ml 25 ml medications Current Medications Medications Dose Ordered Sig/Jarrett Route Start Time Stop Time Status Last Admin Dose Admin Acetaminophen 650 mg Q6HP PRN PO 07/16/24 15:00 Acetaminophen/ Hydrocodone Bitart 1 tab Q4HP PRN PO 07/16/24 15:00 07/20/24 07:43 1 TAB Ondansetron HCl 4 mg Q4HP PRN IV 07/16/24 15:00 Nitroglycerin 0.4 mg Q5MINP PRN SL 07/16/24 15:00 Morphine Sulfate 2 mg Q30M PRN IV 07/16/24 15:00 Diagnostic Test (Pha) 1 strip ACHS 07/16/24 17:00 07/20/24 12:44 1 STRIP Insulin Human Regular HS SC 07/16/24 22:00 07/19/24 21:45 6 UNITS Insulin Human Regular AC SC 07/16/24 17:00 07/20/24 12:54 12 UNITS Dextrose 50 ml UD PRN IV 07/16/24 15:00 Aspirin 81 mg DAILY PO 07/17/24 10:00 07/20/24 10:14 81 MG Hydralazine HCl 10 mg Q6HP PRN IV 07/16/24 15:15 07/19/24 03:54 10 MG Doxycycline Monohydrate 100 mg Q12HR PO 07/19/24 22:00 08/02/24 21:59 07/20/24 10:14 100 MG Atorvastatin Calcium 40 mg HS PO 07/20/24 22:00 Warfarin Sodium RX PROTOCOL PER PHARMACY PO 07/20/24 15:30 objective GENERAL: Awake, alert, oriented. LUNGS: Decreased breath sounds. CARDIOVASCULAR: Heart sounds are good. ABDOMEN: Soft. laboratory and microbiology Laboratory Tests 07/20/24 04:00 Test 07/20/24 04:00 Range/Units Serum Glucose 179 H 74-106 mg/dL Problem List Syncope. Heart pause. Paroxysmal atrial fibrillation. Hypertensive urgency. Assessment/Plan Continued all current supportive medical care. Morphine and [place] for pain management. Aspirin, Lipitor. Antibiotics with Doxycycline. IV Hydralazine for SBP > 150. Nitro SL. Additional plan as per the hospital course. Critical care time of 90 minutes provided to include time spent evaluation of patient at bedside, when appropriate patient/family education for diagnosis, treatment plan, review of pertinent medical information and discussion of care with specialty providers and PCP. Plan discussed with: Patient NIKOLE CASEY MD Jul 20, 2024 17:24
[2024-07-20 18:46] LABS: INR 1.09 (0.9-1.15); Partial Thromboplastin Time 26.7 SEC (24.5-34.5); Prothrombin Time 11.5 sec (9.3-11.8)
[2024-07-20] MEDS: LIDOCAINE 2%HCL (LOCAL ANESTH.) INJ 20ML MDV ONE ×3 (18:47→19:18)
[2024-07-20] MEDS: VANCOMYCIN HCL 1000 MG VL ONE ×2 (18:47→19:44)
[2024-07-20] MEDS: VANCOMYCIN 1GM/250ML KIT 250 ML IV ONE (18:48)
[2024-07-20] MEDS: fentaNYL CITRATE 100 MCG/2 ML VL ONE ×2 (19:08→19:45)
[2024-07-20] MEDS: MIDAZOLAM HCL 2MG/2ML 2ml VIAL (1mg/ml) ONE (19:08)
--- NOTE | 2024-07-20 19:19 | DVHPNRES ---
Progress Note Date Seen: Jul 20, 2024 Resident Creating Document: SYED BOYER RESIDENT Has the PT tested + for MRSA If YES, has PT been informed?: No Medical Necessity Reason Pt with a Central, PICC or Fol: No Subjective Review of Systems 79-year-old male with a history of angina, prostate cancer status post TURP, diabetes, hypertension, kidney stones, myocardial infarction, atrial fibrillation, and peripheral artery disease presented with blurred vision, dizziness, and syncope for one week. He was brought to the emergency department with a chief complaint of presyncope/syncope for 1 week, hot flashes, dizziness, blurred vision and mechanical fall without loss of consciousness or head trauma. Patient also reported he was unable to afford Eliquis so he stopped using it for the past 2 weeks. Patient was found to have heart pauses lasting up to 9 seconds for which the patient was transferred to the ICU and started on dopamine drip , he underwent a pacemaker implantation 07/19, chest x-ray taken after showed leads on the right place. Post device implantation blood pressure decreases for which losartan was decreased from 100-50 mg. QTC prolongation: 510. Today: 07/20/2024, chest x-ray showed pacemaker lead dislodgement, patient is currently asymptomatic. Ventricular lead move towards the left ventricle, patient will need lead repositioning in the cathode builder, sign writer hand on board. Cardiology follow-up the day after discharge. Anticoagulants were held, possible resume after discharge, prior insurance authorization. Patient will not be started on warfarin. ROS Constitutional: No: Fever, Chills, Sweats, Weakness, Malaise, Other Eyes: No: Pain, Vision change, Conjunctivae inflammation, Eyelid inflammation, Other, Redness ENT: No: Ear pain, Ear discharge, Nose pain, Nose discharge, Nose congestion, Mouth pain, Mouth swelling, Throat pain, Throat swelling, Other Respiratory: Cough present, improving No Wheezing, Hemoptysis, Pleuritic Pain, Sputum, Wheezing, Other Cardiovascular: No: Chest Pain, Palpitations, Orthopnea, Paroxysmal Noc. Dyspnea, Edema, Lt Headedness, Other Gastrointestinal: No: Nausea, Vomiting, Abdominal Pain, Diarrhea, Constipation, Melena, Hematochezia, Other Musculoskeletal: No: other, neck pain, shoulder pain, arm pain, back pain, hand pain, leg pain, foot pain Neurological:; No: Weakness, Numbness, Incoordination, Change in speech, Confusion, Seizures Patient reports: No new complaints Objective vital signs Vital Sign Date Time Temp Pulse Resp B/P (MAP) Pulse Ox O2 Delivery O2 Flow Rate FiO2 07/20/24 17:15 73 21 97 07/20/24 16:30 21 07/20/24 16:00 98.4 98.4 07/20/24 08:00 Room Air* 0 Total Intake and Output 07/19/24 07/19/24 07/20/24 15:00 23:00 07:00 Intake Total 72.68 ml 1240 ml 350 ml Output Total 400 ml 325 ml Balance 72.68 ml 840 ml 25 ml medications Current Medications Medications Dose Ordered Sig/Jarrett Route Start Time Stop Time Status Last Admin Dose Admin Acetaminophen 650 mg Q6HP PRN PO 07/16/24 15:00 Acetaminophen/ Hydrocodone Bitart 1 tab Q4HP PRN PO 07/16/24 15:00 07/20/24 07:43 1 TAB Ondansetron HCl 4 mg Q4HP PRN IV 07/16/24 15:00 Nitroglycerin 0.4 mg Q5MINP PRN SL 07/16/24 15:00 Morphine Sulfate 2 mg Q30M PRN IV 07/16/24 15:00 Diagnostic Test (Pha) 1 strip ACHS 07/16/24 17:00 07/20/24 17:37 1 STRIP Insulin Human Regular HS SC 07/16/24 22:00 07/19/24 21:45 6 UNITS Insulin Human Regular AC SC 07/16/24 17:00 07/20/24 12:54 12 UNITS Dextrose 50 ml UD PRN IV 07/16/24 15:00 Aspirin 81 mg DAILY PO 07/17/24 10:00 07/20/24 10:14 81 MG Hydralazine HCl 10 mg Q6HP PRN IV 07/16/24 15:15 07/19/24 03:54 10 MG Doxycycline Monohydrate 100 mg Q12HR PO 07/19/24 22:00 08/02/24 21:59 07/20/24 10:14 100 MG Atorvastatin Calcium 40 mg HS PO 07/20/24 22:00 Warfarin Sodium RX PROTOCOL PER PHARMACY PO 07/20/24 15:30 Examination Examination General Appearance: Alert, Oriented X3, Cooperative, No acute distress HEENT: EOMI Respiratory: Clear to auscultation, Normal air movement Cardiovascular: Status post pacemaker implantation, paced rhythm with some PVC, Normal S1, Normal S2 Abdominal: Normal bowel sounds Extremities: No cyanosis, No edema, Normal pulses, No tenderness/swelling Skin: No rashes, No breakdown Neuro: Normal speech, Strength at 3/5 X4 ext, Normal tone, Sensation intact, Cranial nerves 3-12 NL, Reflexes 2+ Psych/Mental Status: Mental status NL, Mood NL laboratory and microbiology Laboratory Tests 07/20/24 04:00 Test 07/20/24 04:00 Range/Units Serum Glucose 179 H 74-106 mg/dL Microbiology Date/Time Source Procedure Growth Status 07/17/24 15:56 Nose MRSA Screen - Final Complete Problem List/Assessment/Plan Problem List/Assessment/Plan Neurolgy: #Syncope likely cardiogenic due to sick sinus syndrome status post pacemaker implantation # dizziness -status post pacemaker implantation 07/19/[address] Boyd Cardiology: # sick sinus syndrome status post dual-chamber pacemaker implantation # paroxysmal atrial fibrillation #Hypertensive urgency on admission # hypotension after pacemaker implantation # chronic heart failure with preserved ejection fraction, EF 50%, stable # calcified posterior mitral leaflet # aortic sclerosis without hemodynamic compromise # CAD with previous history of [place] # PAD/ peripheral arterial disease: Bilateral lower leg pulsation and warmth maintain, appropriate vasculature and perfusion. # QTC prolongation # right ventricular lead dislodgement -chest x-rays - pacemaker interrogation - sign writer hand consultation for pacemaker right ventricular lead reposition Respiratory: # known obstructive sleep apnea: patient uses CPAP at night Gastrointenstinal # mild bilirubinemia: -check daily CMP, abdominal examination unremarkable Genitourinary # History of renal stones # history of prostate cancer status post TURP Infectious Disease: # Perioperative care: During implantation of dual-chamber pacemaker antibiotic pellets -MRSA negative - doxycycline 10 days Hematology & Oncology: # post pacemaker implantation - Check for H&H and rule out local hematoma or bleeding. Nephrology: # acute kidney injury, hemodynamically mediated due to vasomotor nephropathy # Mild hyponatremia: Improving -for BMP daily Endocrine: # Moderately controlled Diabetes mellitus type 2 , HbA1c 7.6: -Sliding scale insulin and consistent carb diet -Accu-Chek b.i.d. monitoring MSK: # bilateral thrombus in the cephalic veins - vascular function intact. Prophylaxis: PPI: not needed DVT: SCDs Lines & Drains IV: Peripheral line right forearm. Other left and right arm IVs are infiltrated, not functional. M. Drips: Off N. Disposition: Downgrade to telemetry Floor . The plan was discussed with the ICU attending Dr. Ca. The patient care consists of critical care time total 49 minutes, excluding the procedures. Patient's family was updated regarding the plan of care. Plan discussed with: Patient Date of Service: Jul 20, 2024 Billing Provider: JUAN ANTONIO CA MD Common Visit Codes: 52790-[id number] CARE 30-74 MIN SYED BOYER RESIDENT Jul 20, 2024 19:19 JUAN ANTONIO CA MD Jul 21, 2024 15:42
[2024-07-20] MEDS ORDERED: VANCOMYCIN 1GM/250ML KIT 250 ML IV SCH (20:45)
--- NOTE | 2024-07-20 21:22 | DVHPN ---
DATE: 07/20/2024 SUBJECTIVE: The patient had intermittent loss of capture of the RV lead. X-ray was done. The posterior descending is perfect, so I concluded that it is underlying micro dislodgement, so the decision was made bring to the lab support tech again, fixed the problem and it was done very well. There was no complication. The patient tolerated the procedure very well. Parameters all have been checked, now functioning very well. CONCLUSION: This was a micro dislodgement of the lead. Jorje Boyd MD MP/JUDITH/PILLO TID: [id number] RECEIPT: [id number]
[2024-07-20] MEDS: MAGNESIUM SULFATE 1GM/100ML 100 ML IV ONE (21:30)
[2024-07-20] MEDS: ATORVASTATIN 20 MG TAB PO SCH (21:37)
[2024-07-20] MEDS: MORPHINE SULFATE INJ 2 MG/ml SYRG IV ONE (22:56)
--- NOTE | 2024-07-20 23:13 | DVHOP ---
DATE OF SURGERY: 07/20/2024 TECHNIQUE PERFORMED: * Emergency case. * Exploration of left subclavian wound and deep pocket revision. * Revision of the atrial and ventricular leads. * Fluoroscopic guidance and supervision. * Management of the conscious sedation. * Interrogation of the device (Biotronik MRI proof pacemaker). INDICATIONS: The patient had the pacemaker interrogation done postoperatively on 07/19 for few times. Interrogation was 100% normal. This morning on 07/20/2024, interrogation done was normal. Subsequently, the resident, Dr. Zuñiga called and informed there was some intermittent loss of the capture, so like we concluded micro with dislodgement. The patient was brought to catheterization lab urgently. Indications, risks, benefits all have been explained and the risk of the infection also explained. DESCRIPTION OF PROCEDURE: The patient was given IV Versed and fentanyl. The area was cleaned with soap and Betadine. Lidocaine was given. Wound was then explored thoroughly and was flushed very well. Ventricular lead has been repositioned and screwed in very well again and also been sutured at 3 different places with the help of Ethibond. Atrial lead also has been again repositioned, screwed in very well. Both had been sutured with the help of Ethibond. Both the leads had been put back into the pulse generator and screwed in very well. Both then put under the subpectoralis groove. The area was cleaned with antibiotic solution of vancomycin very well. 2 grams of vancomycin had been applied subsequently with the help of a 2-0 Vicryl and the whole wound had been very well sutured with the help of 3-0 Vicryl was used and 4-0 Monocryl also has been used. Staple applied. Tincture of benzoin, Steri-Strip, Telfa, Op-Site applied. Procedure went well. CONCLUSION: This patient staple applied also. Procedure went well. We have the following parameters available at this time: The capture at the atrium is 1.7, P wave is 3.4, impedance 614. Right ventricular is capture 0.6, R wave is 8.1, impedance 640. The device is Edora RAFFI Boyd MD MP/MICHELL/TAYLA TID: [id number] RECEIPT: [id number] MTDD
[2024-07-21] VITALS (48 sets, daily range): BP systolic 104–171; BP diastolic 39–89; PULSE 80–109; RESP 11–23; TEMP 98.3–98.6; O2SAT 88–100
[2024-07-21] MEDS: ACETAMINOPHEN 325 MG TAB PO PRN (03:58)
[2024-07-21 04:26] LABS: Basophils # (auto) 0 10 ^3/uL (0-0.2); Basophils % (auto) 0.4 % (0.0-2.0); Eosinophils # (auto) 0.1 10 ^3/uL (0-0.8); Eosinophils % (auto) 1.3 % (0.0-7.0); Hematocrit 41.6 % (41.0-53.0); Hemoglobin 13.7 g/dL (13.5-17.5); Lymphocytes # (auto) 1.4 10 ^3/uL (0.4-5.4); Lymphocytes % (auto) 15.9 % (10.0-50.0); Mean Corpuscular Hemoglobin 28.6 pg (28.0-32.0); Mean Corpuscular Hgb Conc. 32.9 g/dL (32.0-36.0); Mean Corpuscular Volume 86.7 fL (80.0-100.0); Monocytes # (auto) 0.9 10 ^3/uL (0-1.3); Monocytes % (auto) 10.3 % (0.0-12.0); Neutrophils # (auto) 6.5 10 ^3/uL (1.6-8.6); Neutrophils % (auto) 72.1 % (37.0-80.0); Platelet Count (auto) 197 10^3/uL (140-450); Red Cell Distribution Width 13.6 % (11.8-14.3)
[2024-07-21 04:49] LABS: INR 1.06 (0.9-1.15); Partial Thromboplastin Time 26.6 SEC (24.5-34.5); Prothrombin Time 11.2 sec (9.3-11.8)
[2024-07-21 04:56] LABS: Alanine Aminotransferase 15 U/L (7-40); Albumin 4.2 g/dL (3.2-4.8); Alkaline Phosphatase 52 U/L (46-116); Anion Gap 8 (5-15); Aspartate Aminotransferase 15 U/L (13-40); BUN/Creatinine Ratio 16.3 (10.0-20.0); Blood Urea Nitrogen 14 mg/dL (9-23); Calcium 9.6 mg/dL (8.7-10.4); Carbon Dioxide 23 mmol/L (20-31); Chloride 102 mmol/L (98-107); Potassium 4.1 mmol/L (3.5-5.1); Total Protein 6.4 g/dL (5.7-8.2)
[2024-07-21 05:04] LABS: Bilirubin, Total 1.2 mg/dL (0.2-1.0); Glucose 223 mg/dL (74-106); Sodium 133 mmol/L (136-145)
--- NOTE | 2024-07-21 05:21 | DVH ---
CHEST RADIOGRAPH Indication: PACEMAKER PLACEMENT Technique: Single frontal view of the chest was obtained Comparison: None FINDINGS: Lines and Tubes: Dual-chamber pacemaker with right atrial and ventricular leads. Lungs: Patient's left hand obscures the chest limiting evaluation. No focal consolidation. Pleura: No effusion. No pneumothorax. Cardiomediastinal contours: Unremarkable Bones: No acute osseous abnormality. IMPRESSION: 1. Obscuration of the left chest. 2. No acute cardiopulmonary disease.
[2024-07-21] MEDS: VANCOMYCIN 1GM/250ML KIT 250 ML IV SCH (09:10)
[2024-07-21] MEDS ORDERED: DOX100T PO (14:30)
[2024-07-21] MEDS ORDERED: HYDR1TAB97 PO (15:39)
[2024-07-21] MEDS ORDERED: InsuLIN REG 1unit/0.01ml Soln (100units/ml) SC SCH (17:00)
--- NOTE | 2024-07-21 20:27 | DVHDSRES ---
Discharge Summary Date of Admission Resident Creating Document: SYED BOYER RESIDENT Jul 16, 2024 at 14:51 Date of Discharge: Jul 21, 2024 Admitting Diagnosis syncope Labs/Diagnostic Data: Laboratory Results Test 07/21/24 11:14 07/21/24 03:10 07/19/24 03:56 07/17/24 10:45 POC Glucose 294 mg/dl (70-106) White Blood Count 9.0 10^3/uL (4.4-10.8) Red Blood Count 4.80 10^6/uL (4.5-5.90) Hemoglobin 13.7 g/dL (13.5-17.5) Hematocrit 41.6 % (41.0-53.0) Mean Corpuscular Volume 86.7 fL (80.0-100.0) Mean Corpuscular Hemoglobin 28.6 pg (28.0-32.0) Mean Corpuscular Hemoglobin Concent 32.9 g/dL (32.0-36.0) Red Cell Distribution Width 13.6 % (11.8-14.3) Platelet Count 197 10^3/uL (140-450) Mean Platelet Volume 9.7 fL (6.9-10.8) Neutrophils (%) (Auto) 72.1 % (37.0-80.0) Lymphocytes (%) (Auto) 15.9 % (10.0-50.0) Monocytes (%) (Auto) 10.3 % (0.0-12.0) Eosinophils (%) (Auto) 1.3 % (0.0-7.0) Basophils (%) (Auto) 0.4 % (0.0-2.0) Neutrophils # (Auto) 6.5 10 ^3/uL (1.6-8.6) Lymphocytes # (Auto) 1.4 10 ^3/uL (0.4-5.4) Monocytes # (Auto) 0.9 10 ^3/uL (0-1.3) Eosinophils # (Auto) 0.1 10 ^3/uL (0-0.8) Basophils # (Auto) 0 10 ^3/uL (0-0.2) Nucleated Red Blood Cells 0.0 % Prothrombin Time 11.2 sec (9.3-11.8) Prothrombin Time INR 1.06 (0.9-1.15) Activated Partial Thromboplast Time 26.6 SEC (24.5-34.5) Sodium Level 133 mmol/L (136-145) Potassium Level 4.1 mmol/L (3.5-5.1) Chloride Level 102 mmol/L (98-107) Carbon Dioxide Level 23 mmol/L (20-31) Anion Gap 8 (5-15) Blood Urea Nitrogen 14 mg/dL (9-23) Creatinine 0.86 mg/dL (0.700-1.30) Glomerular Filtration Rate Calc 88 mL/min (>90) BUN/Creatinine Ratio 16.3 (10.0-20.0) Serum Glucose 223 mg/dL (74-106) Calcium Level 9.6 mg/dL (8.7-10.4) Magnesium Level 1.7 mg/dL (1.6-2.6) Total Bilirubin 1.2 mg/dL (0.2-1.0) Aspartate Amino Transferase (AST) 15 U/L (13-40) Alanine Aminotransferase (ALT) 15 U/L (7-40) Alkaline Phosphatase 52 U/L (46-116) Total Protein 6.4 g/dL (5.7-8.2) Albumin 4.2 g/dL (3.2-4.8) Phosphorus Level 3.9 mg/dL (2.4-5.1) Hemoglobin A1c 7.6 % A1C (<5.7) Test 07/16/24 17:12 07/16/24 11:22 Urine Color Yellow (Yellow) Urine Clarity Clear (Clear) Urine pH 6.5 (5.0-9.0) Urine Specific [place] 1.026 (1.001-1.035) Urine Protein 1+ (Negative) Urine Ketones Negative (Negative) Urine Blood Negative /uL (Negative) Urine Nitrite Negative (Negative) Urine Bilirubin Negative (Negative) Urine Urobilinogen Normal mg/dL (Negative) Urine Leukocyte Esterase Negative /uL (Negative) Urine RBC 1 /hpf (0 - 3) Urine Microscopic WBC < 1 /HPF (0-3) Urine Squamous Epithelial Cells Few /hpf (<5) Urine Bacteria None seen /hpf (None Seen) Urine Mucus Few (None Seen) Urine Glucose Trace mg/dL (Normal) Troponin I High Sensitivity 7 ng/L (</=54) Other Laboratory Tests 2/12/25 03:10 Brief Hx & Hospital Course: Hospital Course The patient presented to the emergency department with a chief complaint of presyncope/syncope for one week, along with hot flashes, dizziness, blurred vision, and lightheadedness. He denied any loss of consciousness or head trauma. The patient has a history of atrial fibrillation and had been on Eliquis, which he stopped taking two weeks prior to admission due to financial constraints. While hospitalized, the patient experienced recurrent heart pauses lasting up to 9 seconds, prompting transfer to the ICU, where he was started on dopamine drip. Given his symptomatic bradycardia, he underwent permanent pacemaker implantation on 07/19/2024. Post-implantation, chest X-ray revealed a right ventricular lead dislodgment.The patient remained asymptomatic, A repeat chest X-ray on 07/20/2024 confirmed lead displacement, with the ventricular lead now migrating downwards. The interventional cardiology team was consulted, and he was scheduled for lead repositioning in the catheterization lab that was made succesfully. Regarding anticoagulation, there was a discussion with the patient and his , and they ultimately decided against starting Warfarin, stating that they do not want Warfarin at this point. The medical team discussed the risks and benefits, but the patient and his feel comfortable with their decision. Discharge Condition The patient is clinically stable at discharge, denies dizziness or lightheadedness, and has no acute complaints. He will require cardiology follow- up the day after discharge. Discharge Medications 1. Eliquis (Apixaban) To resume pending insurance authorization 2. Losartan 50 mg daily Adjusted for blood pressure control 3. Dopamine discontinued No further need for inotropic support 4. Other home medications as previously prescribed 5. Family refuses warfarin on discharge Follow-Up Plan & Recommendations Cardiology: Follow-up the next day for pacemaker lead reassessment Anticoagulation: The patient and his have decided not to start Warfarin Activity: No lifting over 10 lbs for the next 6 weeks, avoid raising the left arm above shoulder level Blood Pressure Monitoring: Continue adjusted antihypertensive regimen Disposition: Discharged Home Case discussed with . Discharge planning discussed with the patient and for 46 minutes Operations or Procedures [address] [address] Ph: [phone] DIAGNOSTIC IMAGING Diagnostic Imaging Report : [id number] Signed PATIENT: STEPHANIE LAGUNA ACCT: [id number] UNIT: [id number] : 1945 LOC: ICU [place] ROOM / BED: [address] [place] [address] / A AGE / SEX: 79 / M ADM STATUS: ADM IN SERVICE 0400 ORDERING PHYSICIAN: WILFREDO MCNEIL PROCEDURE(s): CXRP - CHEST PORTABLE REASON: PACEMAKER PLACEMENT ORDER NUMBER(s): [id number], ACCESSION NUMBER(s): [id number] CHEST RADIOGRAPH Indication: PACEMAKER PLACEMENT Technique: Single frontal view of the chest was obtained Comparison: None FINDINGS: Lines and Tubes: Dual-chamber pacemaker with right atrial and ventricular leads. Lungs: Patient's left hand obscures the chest limiting evaluation. No focal consolidation. Pleura: No effusion. No pneumothorax. Cardiomediastinal contours: Unremarkable Bones: No acute osseous abnormality. IMPRESSION: 1. Obscuration of the left chest. 2. No acute cardiopulmonary disease. ATED BY: DIONY STEEN MD DICTATED DATE/TIME: 07/21/24517 SIGNED BY: DIONY STEEN MD SIGNED DATE/TIME: 07/21/24517 CC: [place] [address] Ph: [phone] DIAGNOSTIC IMAGING Diagnostic Imaging Report : [id number] Signed PATIENT: STEPHANIE LAGUNA ACCT: [id number] UNIT: [id number] : 1945 LOC: ICU [place] ROOM / BED: [address] [place] [address] A AGE / SEX: 79 / M ADM STATUS: ADM IN SERVICE 1401 ORDERING PHYSICIAN: WILFREDO MCNEIL PROCEDURE(s): CXRP - CHEST PORTABLE REASON: CHECK PACEMAKER LEADS ORDER NUMBER(s): [id number], ACCESSION NUMBER(s): [id number] EXAM: XY CHEST PORTABLE HISTORY: CHECK PACEMAKER LEADS COMPARISON: Chest x-ray from earlier same day. TECHNIQUE: Portable AP view of the chest was performed. FINDINGS: Left chest pacemaker is re-identified. No pneumothorax, consolidative infiltrates, or pulmonary edema. The heart is not enlarged. There are postoperative changes of ACDF. IMPRESSION: Left chest pacemaker re-identified. No acute intrathoracic process is otherwise identified here. ATED BY: ZEUS MARISCAL MD DICTATED DATE/TIME: 07/20/241418 SIGNED BY: ZEUS MARISCAL MD SIGNED DATE/TIME: 07/20/241418 CC: [place] [address] Ph: [phone] DIAGNOSTIC IMAGING Diagnostic Imaging Report : [id number] Signed PATIENT: STEPHANIE LAGUNA ACCT: [id number] UNIT: [id number] : 1945 LOC: ICU [facility] ROOM / BED: [address] [place] [address] / A AGE / SEX: 79 / M ADM STATUS: ADM IN SERVICE 0314 ORDERING PHYSICIAN: CM HIDALGO PROCEDURE(s): CXR1 - CHEST XRAY 1 VIEW REASON: reevaluate lung parenchyma ORDER NUMBER(s): [id number], ACCESSION NUMBER(s): [id number] CHEST RADIOGRAPH Indication: reevaluate lung parenchyma Technique: Single frontal view of the chest was obtained Comparison: XY CHEST PORTABLE on DOS: 07/19/24 FINDINGS: Lines and Tubes: Dual-chamber pacemaker with right atrial and ventricular leads. Lungs: No focal consolidation. Pleura: No effusion. No pneumothorax. Cardiomediastinal contours: Unremarkable Bones: No acute osseous abnormality. IMPRESSION: 1. No acute cardiopulmonary disease. ATED BY: DIONY STEEN MD DICTATED DATE/TIME: 07/20/24409 SIGNED BY: DIONY STEEN MD SIGNED DATE/TIME: 07/20/24409 CC: [address] [address] Ph: [phone] DIAGNOSTIC IMAGING Diagnostic Imaging Report : [id number] Signed PATIENT: STEPHANIE LAGUNA ACCT: [id number] UNIT: [id number] : 1945 LOC: ICU [place]ST ROOM / BED: [address] [place] [address] / A AGE / SEX: 79 / M ADM STATUS: ADM IN SERVICE 1229 ORDERING PHYSICIAN: WILFREDO MCNEIL RESIDENT PROCEDURE(s): BUDVT - Bi Lat Upper DVT REASON: IV infiltration ORDER NUMBER(s): [id number], ACCESSION NUMBER(s): [id number] Bilateral Upper Extremity Venous Duplex Clinical History: IV infiltration Comparison: US BILAT LOWER DVT on DOS: 02/10/24, US BILAT LOWER DVT on DOS: 12/15/23, US BILAT LOWER DVT on DOS: 02/18/23 Findings: Duplex Doppler evaluation of the venous systems of the right and left lower neck and upper extremities including color Doppler and spectral/pulsed waveform analysis was performed. RIGHT SIDE: The internal jugular vein demonstrates appropriate compressibility and waveform variability . The subclavian vein is patent on color Doppler evaluation without intraluminal thrombus and demonstrates waveform variability . The visualized portion of the brachiocephalic vein is patent on color Doppler evaluation without intraluminal thrombus and demonstrates waveform variability . The axillary vein demonstrates appropriate compressibility and waveform variability . The brachial veins demonstrate appropriate compressibility and patency on Doppler evaluation. The basilic vein demonstrates appropriate compressibility and patency on Doppler evaluation. LEFT SIDE: The internal jugular vein demonstrates appropriate compressibility and waveform variability . The subclavian vein is patent on color Doppler evaluation without intraluminal thrombus and demonstrates waveform variability . The visualized portion of the brachiocephalic vein is patent on color Doppler evaluation without intraluminal thrombus and demonstrates waveform variability . The axillary vein demonstrates appropriate compressibility and waveform variability . The brachial veins demonstrate appropriate compressibility and patency on Doppler evaluation. The basilic vein demonstrates appropriate compressibility and patency on Doppler evaluation. Bilateral cephalic veins demonstrate thrombus. Impression: bilateral thrombus in the cephalic veins. If clinical concern/symptoms persist or worsen, short-interval follow-up study is suggested. ATED BY: ZEUS MARISCAL MD DICTATED DATE/TIME: 07/19/241331 SIGNED BY: ZEUS MARISCAL MD SIGNED DATE/TIME: 07/19/241331 CC: [address] [id number] Ph: [phone] DIAGNOSTIC IMAGING Diagnostic Imaging Report : [id number] Signed PATIENT: STEPHANIE LAGUNA ACCT: [id number] UNIT: [id number] : 1945 LOC: ICU [facility]ST ROOM / BED: 0104- / A AGE / SEX: 79 / M ADM STATUS: ADM IN SERVICE 1032 ORDERING PHYSICIAN: NIKOLE BOYD MD PROCEDURE(s): CXRP - CHEST PORTABLE REASON: S/P PACEMAKER ORDER NUMBER(s): [id number], ACCESSION NUMBER(s): [id number] CHEST RADIOGRAPH Indication: S/P PACEMAKER Technique: Single frontal view of the chest was obtained COMPARISON: None FINDINGS: Lines and Tubes: Left chest wall pacemaker Lungs: Clear Pleura: No effusion. No pneumothorax. Cardiomediastinal contours: Unremarkable Bones: Unremarkable IMPRESSION: No acute disease. ATED BY: RITO HARGROVE MD DICTATED DATE/TIME: 07/19/24 110 SIGNED BY: RITO HARGROVE MD SIGNED DATE/TIME: 07/19/24 110 CC: [place] [address] Ph: [phone] DIAGNOSTIC IMAGING Diagnostic Imaging Report : [id number] Signed PATIENT: STEPHANIE LAGUNA ACCT: [id number] UNIT: [id number] : 1945 LOC: ER ROOM / BED: / AGE / SEX: 79 / M ADM STATUS: REG ER SERVICE 0842 ORDERING PHYSICIAN: MARIAELENA KUNZ MD PROCEDURE(s): CXR2 - CHEST TWO VIEWS ROUTINE REASON: pre syncope ORDER NUMBER(s): [id number], ACCESSION NUMBER(s): [id number] EXAM: XY CHEST TWO VIEWS ROUTINE HISTORY: pre syncope COMPARISON: Chest x-ray dated 02/28/2023. TECHNIQUE: Frontal and lateral views of the chest were performed. FINDINGS: No pneumothorax, pleural effusions, or consolidative infiltrates. There is mild central interstitial prominence. The posterior costophrenic angle is not included on the lateral film. The heart is not enlarged. No fractures are identified about the bony thorax. There is thoracic degenerative disc disease with thick bridging syndesmophytes present. IMPRESSION: Mild central interstitial prominence may be due to reactive airways disease or mild CHF. No other acute intrathoracic process is identified here. ATED BY: ZEUS MARISCAL MD DICTATED DATE/TIME: 07/16/24912 SIGNED BY: ZEUS MARISCAL MD SIGNED DATE/TIME: 07/16/24912 CC: Condition at Discharge: Fair Final Diagnosis/Problems List #Syncope likely cardiogenic due to sick sinus syndrome status post pacemaker implantation # dizziness: # sick sinus syndrome status post dual-chamber pacemaker implantation # paroxysmal atrial fibrillation #Hypertensive urgency on admission # hypotension after pacemaker implantation # chronic heart failure with preserved ejection fraction, EF 50%, stable # calcified posterior mitral leaflet # aortic sclerosis without hemodynamic compromise # CAD with previous history of [place] # PAD/ peripheral arterial disease: Bilateral lower leg pulsation and warmth maintain, appropriate vasculature and perfusion. # QTC prolongation # right ventricular lead dislodgement # known obstructive sleep apnea: patient uses CPAP at night # mild bilirubinemia: # History of renal stones # history of prostate cancer status post TURP # Perioperative care: During implantation of dual-chamber pacemaker antibiotic pellets # post pacemaker implantation # acute kidney injury, hemodynamically mediated due to vasomotor nephropathy # Mild hyponatremia: Improving # Moderately controlled Diabetes mellitus type 2 , HbA1c 7.6: Discharge Disposition: Home SNF Discharge Will this Physician continue t: No Discharge Instruct/Medications Diet: Cardiac 2g Na,low cholest Activity: No Restrictions, As Tolerated Follow Up/Referral: Follow-up with cardiology, the day after discharge (Dr. Boyd) Follow-up with PCP within 1-2 weeks Medications: Script to pharmacy [facility] Discharge Statement: "Patient was advised to return to the ER or call 911 if any headaches, dizziness, shortness of breath, chest pain, abdominal pain, bleeding, fevers, or worsening of medical condition. Patient was counseled about treatment plan, medications, possible side effects, patientverbalized understanding. All questions were answered to the best of my ability. This discharge took greater then 30 minutes in planning, reviewing documentation, counseling the patient, and discussing with other team members." ASSESSMENT ASSESSMENT Assessment Sinus sick syndrome status post pacemaker implantation Date of Service: Jul 21, 2024 Billing Provider: JUAN ANTONIO CA MD Common Visit Codes: 14659-UQD/OBS DISCH DAY >30min SYED BOYER RESIDENT Jul 21, 2024 20:27 JUAN ANTONIO CA MD Jul 25, 2024 17:43
--- NOTE | 2024-07-21 22:32 | DVHPN2 ---
Progress Note - Dictate Date Seen: Jul 21, 2024 Has the PT tested + for MRSA If YES, has PT been informed?: No Medical Necessity Reason Pt with a Central, PICC or Fol: No Subjective Patient was seen and evaluated in follow up in the ICU. Patient underwent emergency exploration of left subclavian wound and deep pocket revision, revision of the atrial and ventricular leads, interrogation of the device (Biotronik MRI proof pacemaker). Procedure went well. We have the following parameters available at this time: The capture at the atrium is 1.7, P wave is 3.4, impedance 614. Right ventricular is capture 0.6, R wave is 8.1, impedance 640. The device is Edora DR-T. Patient is cardiac stable for discharge. vital signs Vital Sign Date Time Temp Pulse Resp B/P (MAP) Pulse Ox O2 Delivery O2 Flow Rate FiO2 07/21/24 10:00 19 98 Room Air* 0 21 07/21/24 10:00 90 07/21/24 09:46 138/63 (88) 07/21/24 08:01 98.4 98.4 Total Intake and Output 07/20/24 07/20/24 07/21/24 15:00 23:00 07:00 Intake Total 800 ml 680 ml 100 ml Output Total 500 ml 500 ml 1125 ml Balance 300 ml 180 ml -1025 ml medications Current Medications Medications Dose Ordered Sig/Jarrett Route Start Time Stop Time Status Last Admin Dose Admin Acetaminophen 650 mg Q6HP PRN PO 07/16/24 15:00 07/21/24 03:58 650 MG Acetaminophen/ Hydrocodone Bitart 1 tab Q4HP PRN PO 07/16/24 15:00 07/21/24 09:28 1 TAB Ondansetron HCl 4 mg Q4HP PRN IV 07/16/24 15:00 Nitroglycerin 0.4 mg Q5MINP PRN SL 07/16/24 15:00 Morphine Sulfate 2 mg Q30M PRN IV 07/16/24 15:00 Diagnostic Test (Pha) 1 strip ACHS 07/16/24 17:00 07/21/24 11:18 1 STRIP Insulin Human Regular HS SC 07/16/24 22:00 07/20/24 21:33 3 UNITS Insulin Human Regular AC SC 07/16/24 17:00 07/21/24 11:19 9 UNITS Dextrose 50 ml UD PRN IV 07/16/24 15:00 Aspirin 81 mg DAILY PO 07/17/24 10:00 07/21/24 08:41 81 MG Hydralazine HCl 10 mg Q6HP PRN IV 07/16/24 15:15 07/21/24 00:38 10 MG Doxycycline Monohydrate 100 mg Q12HR PO 07/19/24 22:00 08/02/24 21:59 07/21/24 08:42 100 MG Atorvastatin Calcium 40 mg HS PO 07/20/24 22:00 Warfarin Sodium RX PROTOCOL PER PHARMACY PO 07/20/24 15:30 Vancomycin HCl 250 ml @ 250 mls/hr Q12H IV 07/21/24 08:45 07/21/24 21:44 07/21/24 09:10 250 MLS/HR objective GENERAL: Awake, alert, oriented. LUNGS: Decreased breath sounds. CARDIOVASCULAR: Heart sounds are good. ABDOMEN: Soft. laboratory and microbiology Laboratory Tests 07/21/24 03:10 Test 07/21/24 03:10 Range/Units Serum Glucose 223 H 74-106 mg/dL Problem List Syncope. Heart pause. Paroxysmal atrial fibrillation. Hypertensive urgency. Assessment/Plan Continued all current supportive medical care. Morphine and [place] for pain management. Aspirin, Lipitor. Antibiotics with Doxycycline. IV Hydralazine for SBP > 150. Nitro SL. Additional plan as per the hospital course. Critical care time of 45 minutes provided to include time spent evaluation of patient at bedside, when appropriate patient/family education for diagnosis, treatment plan, review of pertinent medical information and discussion of care with specialty providers and PCP. Plan discussed with: Patient NIKOLE CASEY MD Jul 21, 2024 11:48
== END 2024-07-21 17:14 | disposition home or self-care (01) | DRG 242 ==
LOC: EDBD 08:16 → ER 08:16 → TELE 14:51 → TELE-WESTW 07-17 03:19 → ICU WEST 07-17 15:29
PROVIDERS: ADMIT Internal Medicine; ATTEND Emergency Medicine
PROC: 0JH606Z Insertion of Pacemaker, Dual Chamber into Chest Subcutaneous Tissue and Fascia, Open Approach (ICD-10-PCS; principal; 2024-07-19)
PROC: 02H63JZ Insertion of Pacemaker Lead into Right Atrium, Percutaneous Approach (ICD-10-PCS; 2024-07-19)
PROC: 02HK3JZ Insertion of Pacemaker Lead into Right Ventricle, Percutaneous Approach (ICD-10-PCS; 2024-07-19)
PROC: B5171ZZ Fluoroscopy of Left Subclavian Vein using Low Osmolar Contrast (ICD-10-PCS; 2024-07-19)
PROC: 5A09357 Assistance with Respiratory Ventilation, Less than 24 Consecutive Hours, Continuous Positive Airway Pressure (ICD-10-PCS; 2024-07-19)
PROC: 02WA3MZ Revision of Cardiac Lead in Heart, Percutaneous Approach (ICD-10-PCS; 2024-07-20)
DX: I49.5 Sick sinus syndrome (principal); J96.01 Acute respiratory failure with hypoxia; N17.0 Acute kidney failure with tubular necrosis; E87.1 Hypo-osmolality and hyponatremia; I50.32 Chronic diastolic (congestive) heart failure; T82.128A Displacement of other cardiac electronic device, initial encounter; Y83.8 Other surgical procedures as the cause of abnormal reaction of the patient, or of later complication, without mention of misadventure at the time of the procedure; I25.10 Atherosclerotic heart disease of native coronary artery without angina pectoris; I16.0 Hypertensive urgency; E11.65 Type 2 diabetes mellitus with hyperglycemia; I48.0 Paroxysmal atrial fibrillation; G47.33 Obstructive sleep apnea (adult) (pediatric); E11.51 Type 2 diabetes mellitus with diabetic peripheral angiopathy without gangrene; I95.9 Hypotension, unspecified; I11.0 Hypertensive heart disease with heart failure; I35.0 Nonrheumatic aortic (valve) stenosis; Z79.01 Long term (current) use of anticoagulants; Z79.82 Long term (current) use of aspirin; Z79.899 Other long term (current) drug therapy; Z83.3 Family history of diabetes mellitus; Z87.442 Personal history of urinary calculi; Y92.89 Other specified places as the place of occurrence of the external cause; I70.0 Atherosclerosis of aorta; I73.9 Peripheral vascular disease, unspecified
CPT/HCPCS: 33208; 33215; 36415; 71045; 71046; 80048; 80053; 81001; 82962; 83036; 83735; 84100; 84484; 85025; 85610; 85730; 87081; 93005; 93306; 93970; 94660; 97163; 99152; G0378; J0461; J1815; J2250; J7060; Q9956; Q9967

== ENCOUNTER → 2024-08-02 | Outpatient (CLI) | payer OTHER ==
[~2024-08-02] MED LIST changes: -APIX5TAB PO; -DIPH25CA51 PO; +DOX100T PO; +HYDR1TAB97 PO; -MET50T PO; -NAP500T GT
[2024-08-02 11:18] LABS: Urine Bacteria FEW /hpf (None Seen); Urine Blood TRACE /uL (Negative); Urine Clarity Clear (Clear); Urine Color Yellow (Yellow); Urine Protein, UAD 2+ (Negative); Urine Specific Gravity 1.046 (1.001-1.035); Urine Squamous Epithelial Cell FEW /hpf (<5); Urine Urobilinogen 2 mg/dL (Negative); Urine WBC 2 /HPF (0-3); Urine pH 5.5 (5.0-9.0)
[2024-08-02 11:47] LABS: Cholesterol 109 mg/dL (< 200); HDL Cholesterol 45 mg/dL (40-59); Triglycerides 104 mg/dL (< 150)
[2024-08-02 11:48] LABS: LDL Cholesterol 49 mg/dL (< 100)
[2024-08-02 11:49] LABS: Free T4 (Free Thyroxine) 1.35 ng/dL (0.89-1.76)
[2024-08-02 12:05] LABS: Prostate Specific Antigen < 0 ng/mL (0.0-4.0)
[2024-08-02 12:09] LABS: Creatinine, Urine 349.36 mg/dL (30.0-125.0)
== END | disposition home or self-care (01) ==
LOC: LAB 10:14
PROVIDERS: ATTEND Internal Medicine
DX: N40.0 Benign prostatic hyperplasia without lower urinary tract symptoms (principal); E11.9 Type 2 diabetes mellitus without complications; G89.29 Other chronic pain
CPT/HCPCS: 36415; 80061; 81001; 82043; 82570; 84153; 84439; 84443

== ENCOUNTER → 2025-04-04 | Outpatient (CLI) | payer OTHER ==
[2025-04-04 11:46] LABS: INR 2.16 (0.9-1.15); Partial Thromboplastin Time 33.0 SEC (24.5-34.5); Prothrombin Time 21.2 sec (9.3-11.8)
== END | disposition home or self-care (01) ==
LOC: LAB 10:23
PROVIDERS: ATTEND Physician Assistant
DX: D68.69 Other thrombophilia (principal); I48.91 Unspecified atrial fibrillation
CPT/HCPCS: 36415; 85610; 85730

== ENCOUNTER 2025-04-27 10:09 | Outpatient (CLI) | payer OTHER ==
[2025-04-27 10:46] LABS: INR 2.6 (0.9-1.15); Prothrombin Time 25.1 sec (9.3-11.8)
== END 2025-04-27 17:00 | disposition home or self-care (01) ==
LOC: LAB 10:09
PROVIDERS: ATTEND Physician Assistant
DX: D68.69 Other thrombophilia (principal)
CPT/HCPCS: 36415; 85610